=== PATIENT | female | born 1955 | race Caucasian/White ===

== ENCOUNTER 2021-04-20 22:05 | Inpatient (IN) | payer MEDICARE, OTHER ==
[~2021-04-20] VITALS: Ht 165.1 cm; Wt 111.6 kg
--- NOTE | 2021-04-20 22:21 | NUR ---
PT BIBRA FROM HOME C/O SOB X1 DAY, +DIARRHEA. STATES DAUGHTERS HAVE COVID. ON ROOM AIR PT SAT 82%. REFUSES TO BE ADMITTED. ER MD SPOKE TO PT'S FAMILY REGARDING ADMISSION, PT'S FAMILY STATED SHE DOES NOT WANT TO BE ADMITTED AND THAT THEY CAN NOT CONVINCE HER.
[2021-04-20] MEDS ORDERED: methylPREDNISolone SOD SUCC 125 MG/2ML VIAL IV ONE (23:00)
[2021-04-20] MEDS ORDERED: methylPREDNISolone SOD SUCC 125 MG/2ML VIAL ONE (23:07)
[2021-04-20 23:20] LABS: HEMOGLOBIN 12.4 g/dL (11.5-14.8); LYMPHOCYTES # (AUTO) 0.5 K/uL (0.8-4.8); MONOCYTES # (AUTO) 0.4 K/uL (0.1-1.30)
[2021-04-20 23:26] LABS: BASOPHILS % (AUTO) 0.3 % (0.0-2.0); HEMATOCRIT 37 % (33-45); LYMPHOCYTES % (AUTO) 9.5 % (20.0-44.0); MEAN CORPUSCULAR HGB CONC 34 g/dl (31.0-36.0); MEAN CORPUSCULAR VOLUME 77 fL (82-100); MONOCYTES % (AUTO) 7.4 % (2.0-12.0); NEUTROPHILS # (AUTO) 4.4 K/uL (1.8-8.9); NEUTROPHILS % (AUTO) 82.8 % (43.0-81.0); PLATELET COUNT (AUTO) 148 K/uL (150-450); RED BLOOD CELL COUNT(AUTO) 4.76 MIL/uL (4.0-5.2); WHITE BLOOD COUNT (AUTO) 5.3 K/uL (4.3-11.0)
[2021-04-20 23:31] LABS: CALCIUM, SERUM 7.7 mg/dL (8.5-10.1); CARBON DIOXIDE 18 mmol/L (21-32); CHLORIDE 97 mmol/L (98-107); CREATININE 1.1 mg/dL (0.6-1.3); GLUCOSE 152 mg/dL (74-106); POTASSIUM 3.7 mmol/L (3.5-5.1); SODIUM SERUM 130 mmol/L (136-145); UREA NITROGEN, BLOOD 13 mg/dL (7-18)
[2021-04-20 23:44] LABS: ALANINE AMINOTRANSFERASE 36 U/L (12-78); ALBUMIN 2.8 g/dL (3.4-5.0); ALKALINE PHOSPHATASE 33 U/L (46-116); ASPARTATE AMINOTRANSFERASE 36 U/L (15-37); BILIRUBIN,TOTAL 0.2 mg/dL (0.2-1.0); TOTAL PROTEIN, SERUM 7.1 g/dL (6.4-8.2)
[2021-04-20 23:54] LABS: D-DIMER 0.44 mg/L(FEU (0.17-0.50)
--- NOTE | 2021-04-21 00:03 | NUR ---
PT IN BED, REMAINS ON NON REBREATHER 15L. ST 96%.
[2021-04-21 00:22] LABS: CREATINE KINASE, TOTAL 229 U/L (26-192); FERRITIN 326 ng/mL (8-388)
[2021-04-21 00:26] LABS: C-REACTIVE PROTEIN 9.5 mg/dL (0.0-0.9)
[2021-04-21] MEDS ORDERED: PIPERACILLIN /TAZOBACTAM 3.375 G in IV D5W 50 ML IV ONE (01:00)
[2021-04-21] MEDS ORDERED: VANCOMYCIN 1 GM in IV D5W 250 ML IV ONE (01:00)
[2021-04-21] MEDS ORDERED: VANCOMYCIN 1 GM VIAL ONE (01:01)
[2021-04-21] MEDS ORDERED: PIPERACILLIN /TAZOBACTAM 3.375 G VIAL IV ONE (01:01)
--- NOTE | 2021-04-21 01:08 | NUR ---
BED 110
--- NOTE | 2021-04-21 01:15 | NUR ---
RN NOTE REPORT RECEIVED FROM SARAH BETH JAIME
[2021-04-21] MEDS ORDERED: ALBUTEROL SULFATE 8 GM HFA.AER.AD IH PRN (02:00)
[2021-04-21] MEDS ORDERED: ONDANSETRON HCL/PF 4 MG/2 ML VIAL IVP PRN (02:00)
--- NOTE | 2021-04-21 02:12 | NUR ---
RN ADMITTING NOTE RECEIVED PATIENT FROM ER VIA GURNEY ACCOMPANIED BY 2 ER STAFF AND TRANSFERRED TO BED VIA 2 PERSON ASSIST. PT IS AAO X 4, IN NO SIGN OF ACUTE DISTRESS, RESPIRATIONS EVEN AND UNLABORED, SATURATION AT 97% ON 15LPM VIA NRB MASK. COMPREHENSIVE PHYSICAL ASSESSMENT AND PATIENT CARE DONE. NO SKIN ISSUES NOTED. NOTED IV LINE AT RHAND 20G, PATENT AND FLUSHING WELL, NO S/S OF INFECTION OR INFILTRATION NOTED. SAFETY MEASURES AND ISOLATION PRECAUTION IN PLACE, CALL LIGHT WITHIN REACH OF PATIENT, BED ON LOWEST POSITION, SIDE RAILS UP X 2. WILL CONTINUE MONITOR AND ASSESS THROUGHOUT THE SHIFT. WILL CARRY OUT MD ORDERS ACCORDINGLY. WOMEN SPECIALIST MADE AWARE.
--- NOTE | 2021-04-21 02:19 | NUR ---
PT TRANSFERED PER ACLS PROTOCOL
[2021-04-21] MEDS ORDERED: CEFTRIAXONE 1 G VIAL ONE (02:21)
[2021-04-21] MEDS: CEFTRIAXONE 1 G in IV D5W 50 ML IV SCH (02:31)
[2021-04-21 02:43] VITALS: BP 147/89
[2021-04-21] MEDS ORDERED: AZITHROMYCIN 500 MG VIAL ONE (02:55)
[2021-04-21] MEDS: AZITHROMYCIN 250 MG in IV D5W 250 ML IV SCH (03:07)
[2021-04-21 04:00] VITALS: BP 119/72
--- NOTE | 2021-04-21 06:38 | NUR ---
RN CLOSING NOTES NO CHANGES IN PT CONDITION THROUGHOUT ADMISSION. PT IS ON 15L NRB MASK WITH OXYGEN SATURATION >95% WITH NO S/S OF RESPIRATORY DISTRESS. PT IS NSR, A&OX4, AND HAS IV LINE ON RIGHT HAND. FLUSHED, PATENT, AND INTACT. ALL DUE MEDS GIVEN ORDERED. PATIENT KEPT CLEAN AND COMFORTABLE. ALL SAFETY MEASURES IMPLEMENTED. WILL ENDORSE TO MORNING SHIFT RN FOR MYRNA.
[2021-04-21 08:00] VITALS: BP 110/63
--- NOTE | 2021-04-21 08:13 | NUR ---
patient asleep,no acute distress,will continue to monitor.
[2021-04-21 08:16] LABS: BASOPHILS % (AUTO) 0.1 % (0.0-2.0); HEMATOCRIT 38 % (33-45); HEMOGLOBIN 12.5 g/dL (11.5-14.8); LYMPHOCYTES # (AUTO) 0.4 K/uL (0.8-4.8); LYMPHOCYTES % (AUTO) 12.5 % (20.0-44.0); MEAN CORPUSCULAR HGB CONC 33 g/dl (31.0-36.0); MEAN CORPUSCULAR VOLUME 78 fL (82-100); MONOCYTES # (AUTO) 0.1 K/uL (0.1-1.30); MONOCYTES % (AUTO) 4.1 % (2.0-12.0); NEUTROPHILS # (AUTO) 2.8 K/uL (1.8-8.9); NEUTROPHILS % (AUTO) 83.3 % (43.0-81.0); PLATELET COUNT (AUTO) 141 K/uL (150-450); WHITE BLOOD COUNT (AUTO) 3.3 K/uL (4.3-11.0)
--- NOTE | 2021-04-21 08:21 | NUR ---
OPHTHALMIC MEDICAL TECHNOLOGIST TELEMETRY OPENING NOTES: Received patient in room in bed and patient is alert and orientated x4. Patient is currently on Non-Rebreather mask running @ 15 LPM. last O2 reading when rounded was 93%. Patient's current telemetry reading is Sinus Rhythm. Patient is currently using a bedpan and is able to turn and reposition self. Patient's skin is intact, warm and dry to touch. Patient has a Right Hand IV 20 Gauge which is currently patent. Patient is currently NPO. Patient in bed resting, bed is locked, bed in lowest position, upper side rails up and call light within easy reach. Will continue to monitor patient throughout shift.
[2021-04-21] MEDS ORDERED: LEVO50TA8 PO (08:23)
[2021-04-21] MEDS ORDERED: METO-357 PO (08:23)
[2021-04-21] MEDS ORDERED: HYDR25TA4 PO (08:23)
[2021-04-21] MEDS ORDERED: LOSA100T31 PO (08:24)
[2021-04-21] MEDS ORDERED: OMEP40CA21 PO (08:24)
[2021-04-21] MEDS ORDERED: AMLO-212 PO (08:24)
[2021-04-21] MEDS ORDERED: MELO-107 PO (08:24)
[2021-04-21] MEDS ORDERED: ASPI-1420 PO (08:24)
[2021-04-21 08:38] LABS: THYROID STIMULATING HORMONE 1.253 uIU/mL (0.358-3.74)
[2021-04-21] MEDS: ENOXAPARIN SODIUM 40 MG/0.4 ML DISP.SYRIN SQ SCH (08:57)
[2021-04-21 10:13] LABS: ALBUMIN 2.7 g/dL (3.4-5.0); BILIRUBIN,TOTAL 0.2 mg/dL (0.2-1.0); CALCIUM, SERUM 8.3 mg/dL (8.5-10.1); CREATININE 1.1 mg/dL (0.6-1.3); MAGNESIUM 2.1 mg/dL (1.8-2.4); PHOSPHORUS 3.6 mg/dL (2.5-4.9); POTASSIUM 4.4 mmol/L (3.5-5.1); TOTAL PROTEIN, SERUM 7.3 g/dL (6.4-8.2)
[2021-04-21] MEDS: DEXAMETHASONE SOD PHOSPHATE 10 MG/ML VIAL IV SCH ×2 (10:19→17:29)
[2021-04-21] MEDS ORDERED: FUROSEMIDE 20 MG/2 ML VIAL IV ONE ×2 (10:30)
[2021-04-21 12:00] VITALS: BP 110/63
[2021-04-21] MEDS: REMDESIVIR (CHARGED) 200 MG, *LOADING DOSE 1 EA in IV NS 0.9% 210 ML IV ONE ×2 (14:35→15:07)
[2021-04-21 16:00] VITALS: BP 113/66
--- NOTE | 2021-04-21 18:45 | NUR ---
FIRST BAG OF REMDESIVIR HUNG AFTER MIDLINE WAS PLACED.
--- NOTE | 2021-04-21 18:56 | NUR ---
PHARMACY GRADUATE INTERN TELEMETRY CLOSING NOTES: Patient is in room resting and is alert and orientated X4. Patient is currently on a Non- Rebreather Mask last O2 reading when rounding was 94%. Patient's current telemetry reading is Sinus Rhythm. Patient's skin remains intact, warm and dry to touch. Patient is able to transfer from bed to bedside commode with assistance. Patient has a Right Upper Midline which is patent and was inserted today. Patient has eaten all meals and taken all IV Medications administered by assigned RN. Patient in bed resting, bed is locked, bed is in lowest position, upper side rails are up and call light within easy reach. Pending labs for tomorrow 04/22/2021 BMP and Liver Function test will endorse to nightshift incoming nurse.
--- NOTE | 2021-04-21 19:20 | NUR ---
PATIENT ALERT AND ORIENTED X4, ABLE TO MAKE NEEDS KNOWN. ON 15L NRB, NO SIGNS OF RESPIRATORY DISTRESS, O2 SAT 91%. COMPLAINED OF MILD GENERALIZED PAIN, WILL ADMINISTER DUE PRN MEDS. IV ACCESS ON DANIELLE MIDLINE, PATENT AND INTACT. BED LOCKED AND IN LOWEST POSITION. CALL LIGHT WITHIN REACH. ALL NEEDS ANTICIPATED.
[2021-04-21 20:00] VITALS: BP 119/79
[2021-04-21] MEDS: ACETAMINOPHEN 650 MG/SUPP.RECT RC PRN (20:27)
--- NOTE | 2021-04-21 20:52 | NUR ---
PATIENT O2 SAT 82%, RESPIRATIONS 26. REMAINS AWAKE AND ALERT. NOTIFIED LE PEDROZA WITH NEW ORDERS FOR HIGH FLOW NASAL CANNULA, NO ABG AT THIS TIME. INFORMED RT AT BEDSIDE.
[2021-04-21] MEDS ORDERED: TOCILIZUMAB 400 MG in IV NS 0.9% 80 ML IV ONE (21:00)
--- NOTE | 2021-04-21 22:10 | NUR ---
PATIENT O2 SAT CONTINUES TO FLUCTUATE 83-87%, RT AT BEDSIDE. NRB 15LPM ADMINISTERED ALONG WITH HFNC 40L 100%FIO2. O2 SAT 90%. PATIENT ALSO REQUESTING FOR SLEEPING AID. NOTIFIED LE PEDROZA AND SAID "NO WE CANT GIVE HER ANYTHING THAT WILL SUPPRESS HER RESPIRATORY DRIVE." EXPLAINED TO PATIENT, AND VERBALIZE UNDERSTANDING. CALL LIGHT WITHIN REACH.
--- NOTE | 2021-04-21 22:13 | NUR ---
VERBALLY SPOKE TO MELINDA ARAUZ, UPDATE ON PATIENTS CONDITION, AND MD EXPECTS PATIENT TO RECEIVE NEW MEDICATION ACTEMRA IN THE MORNING. MEDICATION CURRENTLY UNAVAILABLE, DEBI CHARGE NURSE AND RIGO NURSING LANDSCAPE CREW MEMBER AWARE. ACTEMRA CLARIFIED.
--- NOTE | 2021-04-21 23:30 | NUR ---
TREATMENT COORDINATOR NOTE RT AT BED SIDE TRYING TO CHANGE THE PULSE OX CENSOR. PT O2 CAME UP TO 92%. BUT QUICKLY DROPPED BACK DOWN TO 82%. LE [place]ERTY WINDOWS APPLICATION PACKAGER INFORMED. RECIEVED NEW ORDER OF LASIX 20 MG X 1. AND MONITOR THE PT. PER LE LAST STEPS IS INTUBATION. GAURAV NURSE INFORMED TO FOLLOW UP.
[2021-04-22] VITALS (18 sets, daily range): BP systolic 91–127; BP diastolic 26–87
[2021-04-22] MEDS ORDERED: DEXAMETHASONE SOD PHOSPHATE 10 MG/ML VIAL IV ONE
[2021-04-22] MEDS ORDERED: FUROSEMIDE 20 MG/2 ML VIAL ONE (00:06)
--- NOTE | 2021-04-22 00:19 | NUR ---
IV LASIX AND DECADRON GIVEN ORDERED. PATIENT O2 SAT 90-93% ON HFNC 40L 100% FIO2 AND 15L NRB. CALL LIGHT WITHIN REACH.
[2021-04-22] MEDS: AZITHROMYCIN 250 MG in IV D5W 250 ML IV SCH (01:07)
--- NOTE | 2021-04-22 01:22 | NUR ---
ASSISTED PATIENT TO PRONE POSITION WITH 2 NURSES, PATIENT TOLERATING WELL. O2 SAT 96%. CALL LIGHT WITHIN REACH.
[2021-04-22] MEDS: CEFTRIAXONE 1 G in IV D5W 50 ML IV SCH (02:16)
[2021-04-22 07:10] LABS: ALBUMIN 2.8 g/dL (3.4-5.0); BILIRUBIN,DIRECT 0.1 mg/dL (0.0-0.2); BILIRUBIN,TOTAL 0.2 mg/dL (0.2-1.0); CALCIUM, SERUM 8.8 mg/dL (8.5-10.1); CREATININE 1.1 mg/dL (0.6-1.3); POTASSIUM 3.9 mmol/L (3.5-5.1); TOTAL PROTEIN, SERUM 7.7 g/dL (6.4-8.2)
[2021-04-22 07:17] LABS: C-REACTIVE PROTEIN 10.2 mg/dL (0.0-0.9)
--- NOTE | 2021-04-22 08:14 | NUR ---
RN NOTE PATIENT AWAKE, ALERT AND ORIENTED X4, ABLE TO VERBALIZE NEEDS, ON 02 HF @40L FIO2 OF 100% WITH NRB @15LPM, BREATHING EVEN AND UNLABORED O2 SAT OF 89% REPOSITIONED PATIENT TO PRONE POSITION O2 SAT IMPROVED TO 99%, ON TELEMONITOR SR OF 75 CONTINENT ON BOWEL AND BLADDER, SKIN INTACT, RIGHT UPPER ARM MIDLINE IV SITE PATENT, ISOLATION PRECAUTION OBSERVED, WILL CONTINUE TO MONITOR, CALL LIGHT WITHIN REACH, BED WHEELS LOC, SAFETY MEASURE OBSERVED.
--- NOTE | 2021-04-22 08:16 | NUR ---
RN NOTE SEEN BY DR. ROZINA MD ORDERED ABG TO BE DONE AND TO CONTINUE PATIENT ON PRONE POSITION TOLERATED.
[2021-04-22 08:27] LABS: ABG BASE EXCESS -1.6 mmol/L; ABG OXYGEN SATURATION 95.8 % (92.0-98.5); ABG PCO2 29.3 mmHg (35.0-45.0); ABG PH 7.471 (7.350-7.450); ABG PO2 77.5 mmHg (75.0-100.0); AaDO2 606.2 mmHg; COHb 0.4 % (0.5-1.5); MetHb 0.3 % (0.0-1.5); O2Hb 95.1 % (94.0-97.0); SITE, ABG Right Radial; VENT MODE, BG HFNC 40L/100% + NRB 15L
[2021-04-22] MEDS ORDERED: diphenhydrAMINE HCL 50 MG/ML VIAL IV ONE (08:30)
[2021-04-22] MEDS ORDERED: ACETAMINOPHEN 325 MG TABLET PO ONE (08:30)
[2021-04-22] MEDS: ASPIRIN EC 81 MG TABLET.DR PO SCH (08:47)
[2021-04-22] MEDS: DEXAMETHASONE SOD PHOSPHATE 10 MG/ML VIAL IV SCH ×2 (08:47→17:22)
[2021-04-22] MEDS: LEVOTHYROXINE SODIUM 50 MCG TABLET PO SCH (08:47)
[2021-04-22] MEDS: PANTOPRAZOLE 40 MG TABLET.DR PO SCH (08:47)
[2021-04-22] MEDS ORDERED: TOCILIZUMAB 400 MG in IV NS 0.9% 80 ML IV ONE (09:00)
[2021-04-22] MEDS ORDERED: TOCILIZUMAB 800 MG in IV NS 0.9% 60 ML IV ONE (09:00)
[2021-04-22] MEDS: ENOXAPARIN SODIUM 40 MG/0.4 ML DISP.SYRIN SQ SCH ×2 (09:08→20:18)
[2021-04-22] MEDS: LOSARTAN POTASSIUM 50 MG TABLET PO SCH (09:09)
[2021-04-22] MEDS: HYDROCHLOROTHIAZIDE 25 MG TABLET PO SCH (09:09)
[2021-04-22] MEDS: METOPROLOL SUCCINATE 50 MG TAB.SR.24H PO SCH (09:10)
[2021-04-22] MEDS: AMLODIPINE BESYLATE 5 MG TABLET PO SCH (09:10)
[2021-04-22] MEDS: MELOXICAM 7.5 MG TABLET PO SCH (09:11)
--- NOTE | 2021-04-22 09:17 | NUR ---
RN NOTE BENADRYL AND TYLENOL GIVEN 30 MIN PRIOR TO ADMINISTRATION OF ACTEMRA IV STARTED ORDERED, PATIENT VTS 123/74, HR OF 71, RESPIRATION OF 20, O2 SAT OF 92% ON PRONE POSITION, TEMP OF 98. WILL MONITOR FOR ADVERSE REACTION ORDERED..
--- NOTE | 2021-04-22 09:30 | NUR ---
RN NOTE PATIENT ON ACTEMRA NO ASE NOTED, VTS WNL, WILL CONTINUE TO MONITOR.
--- NOTE | 2021-04-22 12:18 | NUR ---
RN NOTE PATIENT TO BE TRANSFER TO ICU GAVE REPORT TO NURSE WALTON.
--- NOTE | 2021-04-22 12:45 | NUR ---
RN NOTES patient get transferred fron tele to icu after abg test result. Patient get desaturated when lying in her back 84% with HF lexy non -retreatment mask, per paraffin plant operator patient will reposition her abdomen o2- 90 tp 91%. patient a/o x3/4. with SOB. patient able to turn and reposition bed by self. patient obese, skin intact, using diaper. patient still regular diet. asking water at this time. IV access on right midline infusing ns tko @10ml/hr. call light within to reach. will monitoring.
[2021-04-22] MEDS: REMDESIVIR (CHARGED) 100 MG in IV NS 0.9% 230 ML IV SCH (15:23)
--- NOTE | 2021-04-22 15:28 | NUR ---
RN NOTES Started RAMDESIVIR INFUSION AT THIS TIME 250 ML/HR. PATIENT O2-85% TO 88 % ART THIS TIME.
--- NOTE | 2021-04-22 18:30 | NUR ---
rn notes PM CARE DONE, PATIENT ABLE TO REPOSTION SELF IN THE BED, O2- 89 %, EDUCATED PATIENT TO KEEP NON- REBREATHER MASK ON AND POSITION SELF PRONE POSITION. PATIENT VERBALIZED UNDERSTANDING, CALL LIGHT WITHIN TO REACH. ENDORSED ONCOMING NURSE FOLLOW PLAN OF CARE.
--- NOTE | 2021-04-22 19:29 | NUR ---
RN NOTE PATIENT RESTING IN BED, SELF PRONING AT THIS TIME. ON HFNC 40L 100% FIO2 AND 15L NRB, O2 SAT 86-89%. ALERT AND ORIENTED X4. ABLE TO MAKE NEEDS KNOWN. TELE MONITOR ON, SR 60'S. IV ACCESS ON DANIELLE MIDLINE, PATENT AND INTACT. DENIES ANY PAIN OR DISCOMFORT. BED LOCKED AND IN LOWEST POSITION. CALL LIGHT WITHIN REACH. ALL NEEDS ANTICIPATED.
[2021-04-23] VITALS (39 sets, daily range): BP systolic 59–125; BP diastolic 24–80
[2021-04-23] MEDS: AZITHROMYCIN 500 MG in IV D5W 250 ML IV SCH (01:12)
[2021-04-23] MEDS: CEFTRIAXONE 1 G in IV D5W 50 ML IV SCH (02:26)
--- NOTE | 2021-04-23 04:33 | NUR ---
PATIENT COMPLAINING OF WORSENING COUGH. O2 SAT 89-92% AND PATIENT IS REQUESTING FOR COUGH MEDICINE. INFORMED LE PEDROZA WITH NEW ORDERS NOTED AND CARRIED OUT.
[2021-04-23] MEDS: GUAIFENESIN/D-METHORPHAN HB 5 ML UDC PO PRN ×2 (05:20→17:05)
[2021-04-23 05:32] LABS: ALBUMIN 2.7 g/dL (3.4-5.0); BILIRUBIN,DIRECT 0.1 mg/dL (0.0-0.2); BILIRUBIN,TOTAL 0.2 mg/dL (0.2-1.0); CALCIUM, SERUM 8.6 mg/dL (8.5-10.1); POTASSIUM 3.9 mmol/L (3.5-5.1); TOTAL PROTEIN, SERUM 7.3 g/dL (6.4-8.2)
--- NOTE | 2021-04-23 06:50 | NUR ---
RN NOTE PATIENT RESTING IN BED. ALERT AND ORIENTED X4. SELF PRONING AT THIS TIME. ON HFNC 40L 100% FIO2 AND 15L NRB, O2 SAT 88-93%. IV ACCESS ON DANIELLE MIDLINE, PATENT AND INTACT. DENIES ANY PAIN OR DISCOMFORT. KEPT CLEAN AND DRY, BED LINENS CHANGED. ALL NEEDS ATTENDED PROMPTLY. BED LOCKED AND IN LOWEST POSITION. CALL LIGHT WITHIN REACH. WILL ENDORSE TO AM SHIFT.
--- NOTE | 2021-04-23 07:30 | NUR ---
COFFERDAM CONSTRUCTION SUPERVISOR OPENING NOTES; PT RECEIVED IN BED, IN PRONE POSITION. PT HAS NO C/O PAIN. PT A/OX4. PT ON NON REBREATHER AT 15LPM ALONG WITH HIGH FLOW NASAL CANULA @40LPM, 100% WITH 02 SAT OF 94-96%. R UPPER ARM MIDLINE NOTED, FLUSHED AND PATENT RUNNING TKO. BED IS IN LOWEST AND LOCK POSITION. CALL LIGHT WITHIN REACH, WILL CONTINUE TO MONITOR.
[2021-04-23] MEDS: ASPIRIN EC 81 MG TABLET.DR PO SCH (08:08)
[2021-04-23] MEDS: PANTOPRAZOLE 40 MG TABLET.DR PO SCH (08:08)
[2021-04-23] MEDS: MELOXICAM 7.5 MG TABLET PO SCH (08:08)
[2021-04-23] MEDS: LOSARTAN POTASSIUM 50 MG TABLET PO SCH (08:09)
[2021-04-23] MEDS: DEXAMETHASONE SOD PHOSPHATE 10 MG/ML VIAL IV SCH ×2 (08:09→17:06)
[2021-04-23] MEDS: LEVOTHYROXINE SODIUM 50 MCG TABLET PO SCH (08:09)
[2021-04-23] MEDS: AMLODIPINE BESYLATE 5 MG TABLET PO SCH (08:09)
[2021-04-23] MEDS: HYDROCHLOROTHIAZIDE 25 MG TABLET PO SCH (08:10)
[2021-04-23] MEDS: METOPROLOL SUCCINATE 50 MG TAB.SR.24H PO SCH (08:10)
[2021-04-23] MEDS: ENOXAPARIN SODIUM 40 MG/0.4 ML DISP.SYRIN SQ SCH ×2 (08:29→21:37)
[2021-04-23] MEDS: REMDESIVIR (CHARGED) 100 MG in IV NS 0.9% 230 ML IV SCH (14:54)
--- NOTE | 2021-04-23 17:42 | NUR ---
RT PATIENT REMAINS AWAKE, ALERT, WITH NO COMPLAINTS OF SOB. PATIENT REQUIRING HFNC 4OL 100% + NRB MASK TO MAINTAIN SPO2 ABOVE 90%. WATER CHANGED AND HF PLUGGED INTO RED OUTLET. PATIENT SELF PRONES. TITRATE FIO2 WHEN APPROPRIATE. Addendum: 04/23/21 at 1745 by CHIDI DENISE RT Amended: Links added.
--- NOTE | 2021-04-23 18:54 | NUR ---
CURING ROOM SUPERVISOR CLOSING NOTES; PT IN BED, CLEAN, DRY, IN PRONE POSITION. PT HAS NO C/O PAIN. PT A/OX4. PT ON NON REBREATHER AT 15LPM ALONG WITH HIGH FLOW NASAL CANULA @40LPM, 100% WITH 02 SAT OF 94%. R UPPER ARM MIDLINE NOTED, FLUSHED AND PATENT RUNNING TKO. 3RD DOSE TO REMDESIVIR GIVEN AND TOLERATED WELL. CXR DONE,IMPOVED RIGHT AND STABLE LUNG INFILTRATES. PT HAD BM X4. PT ON REGULAR DIET AND WAS ABLE TO TOLERATE HER MEALS. CALL LIGHT WITHIN REACH, WILL CONTINUE TO MONITOR. PT BEDLOCKED AND IN LOWEST POSITION. ENDORSED TO NEXT RN ON SHIFT.
--- NOTE | 2021-04-23 19:30 | NUR ---
RN NOTE RECEIVED PATIENT ON ISOLATION FOR COVID 1. PATIENT IN BED. A/OX4. ON OXYGEN HIGH FLOW 40L/MIN NC 100% FIO2 AND 15L NONREBREATHER MASK. RESPIRATIONS ARE EVEN AND UNLABORED. NO S/S SOB NOTED. PATIENT O2 SAT 96%. NO C/O PAIN AT THIS TIME. IN NO APPARENT DISTRESS. IV ACCESS IN DANIELLE MIDLINE RUNNING TKO. TELE MONITOR READS SINUS MADELAINE/ SINUS RHYTHM WITH BBB. IN NO APPARENT DISTRESS. BED IS LOW AND LOCKED, HOB FLAT, PATIENT DOES SELF PRONING. CALL LIGHT WITHIN REACH. WILL CONTINUE TO MONITOR THROUGHOUT SHIFT.
[2021-04-24] VITALS (26 sets, daily range): BP systolic 93–129; BP diastolic 40–87
[2021-04-24] MEDS: CEFTRIAXONE 1 G in IV D5W 50 ML IV SCH (02:03)
[2021-04-24] MEDS: AZITHROMYCIN 500 MG in IV D5W 250 ML IV SCH (02:38)
[2021-04-24 04:42] LABS: BASOPHILS % (AUTO) 0.1 % (0.0-2.0); HEMATOCRIT 39 % (33-45); HEMOGLOBIN 13.1 g/dL (11.5-14.8); LYMPHOCYTES # (AUTO) 0.6 K/uL (0.8-4.8); LYMPHOCYTES % (AUTO) 11.6 % (20.0-44.0); MEAN CORPUSCULAR HGB CONC 34 g/dl (31.0-36.0); MEAN CORPUSCULAR VOLUME 77 fL (82-100); MONOCYTES # (AUTO) 0.7 K/uL (0.1-1.30); MONOCYTES % (AUTO) 13.5 % (2.0-12.0); NEUTROPHILS # (AUTO) 3.8 K/uL (1.8-8.9); NEUTROPHILS % (AUTO) 74.8 % (43.0-81.0); PLATELET COUNT (AUTO) 222 K/uL (150-450); RED BLOOD CELL COUNT(AUTO) 5.06 MIL/uL (4.0-5.2); WHITE BLOOD COUNT (AUTO) 5.1 K/uL (4.3-11.0)
[2021-04-24 05:12] LABS: ALBUMIN 2.8 g/dL (3.4-5.0); BILIRUBIN,DIRECT 0.1 mg/dL (0.0-0.2); BILIRUBIN,TOTAL 0.3 mg/dL (0.2-1.0); CALCIUM, SERUM 8.5 mg/dL (8.5-10.1); TOTAL PROTEIN, SERUM 7.1 g/dL (6.4-8.2)
--- NOTE | 2021-04-24 06:08 | NUR ---
RT NOTE PT CURRENTLY ON HFNC 100% + NRB. PT IS STABLE. WILL CONT TO MONITOR. Addendum: 04/24/21 at 0609 by YUE REEVES RT Amended: Links added.
--- NOTE | 2021-04-24 06:53 | NUR ---
RN NOTE REMAINS ON ISOLATION FOR COVID 19. RESTING IN BED. A/OX4. WAS NOT ABLE TO TITRATE O2 SPO2 RANGED FROM 88 - 97% THROUGHOUT NIGHT. REMAINS ON OXYGEN HIGH FLOW 40L/MIN NC 100% FIO2 AND 15L NONREBREATHER MASK. NO PAIN. NO DISTRESS. IV IN DANIELLE MIDLINE RUNNING TKO. TELE MONITOR CONTINUES TO READS SINUS MADELAINE/ SINUS RHYTHM WITH BBB. NO DISTRESS. BED REMAINS LOW AND LOCKED, HOB FLAT, PATIENT IS PRONING. CALL LIGHT WITHIN REACH. WILL ENDORSE TO ONCOMING SHIFT. DAUGHTER ALSO EXPRESSED SHE WISHES TO SPEAK WITH MD, PREFERABLY PULMONARY MD, DR. ESCOBAR, WILL INFORM AM SHIFT.
--- NOTE | 2021-04-24 07:00 | NUR ---
AIRPLANE RENTAL CLERK OPENING NOTES RECEIVED PATIENT RESTING IN BED. A/O X4, PT IN PRONE POSITION RESTING COMFORTABLY. 0 C/0 PAIN, 0 DISTRESS NOTED. ON HFNC 40L 100% FIO2 AND 15L NRB, O2 SAT 85-90%. IV ACCESS ON DANIELLE MIDLINE, PATENT AND INTACT. PT CLEAN, DRY AND COMFORTABLE. BED LOCKED AND IN LOWEST POSITION. CALL LIGHT WITHIN REACH. WILL CONTINUE TO MONITOR.
--- NOTE | 2021-04-24 07:45 | NUR ---
PRODUCT MANAGEMENT INTERN OPENING NOTES Patient is alert and oriented. Breathing even and unlabored. On 2 lpm via n/c with 02 saturation of 98%. No c/o pain or discomfort. Patient provided morning care. HOB kimanthonyleonardo elevated. Wound consult being done while endorsement was being given. Call light with in reach. Will continue to monitor. Addendum: 04/24/21 at 0959 by HENRIETTA PARKER RN wrong patient
--- NOTE | 2021-04-24 08:00 | NUR ---
Patient SBP 103 AND HR OF 113. Informed MD Robles if patient to be given diltiazem . Per md to recheck manually. Manually BP checked and noted with BP of 118/78. Medication given. Addendum: 04/24/21 at 1001 by HENRIETTA PARKER RN wrong patient chart
--- NOTE | 2021-04-24 08:45 | NUR ---
Patient transferred to [address] [place] [address] AT 8:35, report given to julianna JAIME. Patient transferred on tele monitor and portable 02. Vitals WNL. Addendum: 04/24/21 at 1001 by HENRIETTA PARKER RN wrong patient chart
[2021-04-24] MEDS: METOPROLOL SUCCINATE 50 MG TAB.SR.24H PO SCH (09:04)
[2021-04-24] MEDS: LOSARTAN POTASSIUM 50 MG TABLET PO SCH (09:05)
[2021-04-24] MEDS: PANTOPRAZOLE 40 MG TABLET.DR PO SCH (09:05)
[2021-04-24] MEDS: LEVOTHYROXINE SODIUM 50 MCG TABLET PO SCH (09:05)
[2021-04-24] MEDS: HYDROCHLOROTHIAZIDE 25 MG TABLET PO SCH (09:05)
[2021-04-24] MEDS: MELOXICAM 7.5 MG TABLET PO SCH (09:05)
[2021-04-24] MEDS: AMLODIPINE BESYLATE 5 MG TABLET PO SCH (09:06)
[2021-04-24] MEDS: DEXAMETHASONE SOD PHOSPHATE 10 MG/ML VIAL IV SCH ×2 (09:06→17:07)
[2021-04-24] MEDS: ENOXAPARIN SODIUM 40 MG/0.4 ML DISP.SYRIN SQ SCH ×2 (09:08→21:05)
[2021-04-24] MEDS: ASPIRIN EC 81 MG TABLET.DR PO SCH (09:09)
[2021-04-24 09:13] LABS: ABG BASE EXCESS -1.7 mmol/L; ABG OXYGEN SATURATION 89.9 % (92.0-98.5); ABG PCO2 29.6 mmHg (35.0-45.0); ABG PH 7.465 (7.350-7.450); ABG PO2 56.8 mmHg (75.0-100.0); AaDO2 626.6 mmHg; COHb 0.5 % (0.5-1.5); MetHb 0.1 % (0.0-1.5); O2Hb 89.4 % (94.0-97.0); SITE, ABG Right Radial; VENT MODE, BG HHF 40L 100%
[2021-04-24] MEDS: REMDESIVIR (CHARGED) 100 MG in IV NS 0.9% 230 ML IV SCH (15:48)
[2021-04-24] MEDS: GUAIFENESIN/D-METHORPHAN HB 5 ML UDC PO PRN (18:22)
--- NOTE | 2021-04-24 18:48 | NUR ---
Called Dr Tran regarding patient's family requesting melatonin for sleep . Per MD the drug is not in the formulary and family is permitted to provide the drug to staff. Per pharmacy drug is not in the system. Will await family to bring the drug and endorsement will be done to next shift.
--- NOTE | 2021-04-24 18:53 | NUR ---
RIVER DRIVER CLOSING NOTES PATIENT RESTING IN BED IN PRONE POSITION. A/O X4. PT ABLE TO VERBALIZE NEEDS. NO C/0 PAIN, NO DISTRESS NOTED. ON HFNC 40L 100% FIO2 AND 15L NRB, O2 SAT 88-90%. IV ACCESS ON DANIELLE MIDLINE, PATENT AND INTACT. GIVEN 4TH BAG OF REMDESIVIR. PT WAS ABLE TO TOLERATE MEALS. PT HAD 2 LBM IN BRIEF. PT CLEAN, DRY AND COMFORTABLE. BED LOCKED AND IN LOWEST POSITION. CALL LIGHT WITHIN REACH. WILL ENDORSE TO DISTRIBUTION FIELD ENGINEER RN.
--- NOTE | 2021-04-24 20:22 | NUR ---
Received patient awake on HFNC 40L, 100% + NRB. O2 sat 90%. Continue to monitor closely. Addendum: 04/24/21 at 2024 by WICHO JACKSON RT Amended: Links added.
--- NOTE | 2021-04-24 20:30 | NUR ---
ICU/CIGAR PACKER FAMILY BROUGHT UP MELANOTONIN FOR SLEEP. THIS WAS GIVEN TO PHARMACY SO THAT PT COULD TAKE THIS FOR SLEEP.
[2021-04-24] MEDS: MELATONIN 5 MG PO SCH (21:06)
--- NOTE | 2021-04-24 21:30 | NUR ---
ICU/EDGE BASTER THE MELANOTONIN GIVEN PER PT'S REQUEST. PT ALSO PROVIDED MARCELO CARE. CALL LIGHT WITHIN REACH.
[2021-04-25] VITALS (25 sets, daily range): BP systolic 92–132; BP diastolic 21–89
[2021-04-25] MEDS: CEFTRIAXONE 1 G in IV D5W 50 ML IV SCH (01:50)
[2021-04-25] MEDS: AZITHROMYCIN 500 MG in IV D5W 250 ML IV SCH ×2 (02:24→02:27)
[2021-04-25] MEDS: GUAIFENESIN/D-METHORPHAN HB 5 ML UDC PO PRN (04:07)
[2021-04-25 04:40] LABS: BASOPHILS % (AUTO) 0.2 % (0.0-2.0); EOSINOPHILS % (AUTO) 0.1 % (0.0-6.0); HEMATOCRIT 40 % (33-45); HEMOGLOBIN 13.6 g/dL (11.5-14.8); LYMPHOCYTES # (AUTO) 0.7 K/uL (0.8-4.8); LYMPHOCYTES % (AUTO) 8.9 % (20.0-44.0); MEAN CORPUSCULAR HGB CONC 34 g/dl (31.0-36.0); MEAN CORPUSCULAR VOLUME 77 fL (82-100); MONOCYTES # (AUTO) 0.7 K/uL (0.1-1.30); NEUTROPHILS % (AUTO) 80.8 % (43.0-81.0); PLATELET COUNT (AUTO) 269 K/uL (150-450); RED BLOOD CELL COUNT(AUTO) 5.19 MIL/uL (4.0-5.2); WHITE BLOOD COUNT (AUTO) 7.4 K/uL (4.3-11.0)
[2021-04-25 04:56] LABS: ALBUMIN 2.8 g/dL (3.4-5.0); BILIRUBIN,DIRECT 0.1 mg/dL (0.0-0.2); BILIRUBIN,TOTAL 0.3 mg/dL (0.2-1.0); CALCIUM, SERUM 8.3 mg/dL (8.5-10.1); POTASSIUM 3.9 mmol/L (3.5-5.1); TOTAL PROTEIN, SERUM 6.9 g/dL (6.4-8.2)
--- NOTE | 2021-04-25 05:00 | NUR ---
ICU/MEDICAL DELIVERY DRIVER PT GIVEN ROBITUSSIN FOR COUGH, WILL MONITOR THIS PT.
[2021-04-25] MEDS: PANTOPRAZOLE 40 MG TABLET.DR PO SCH ×2 (05:10→08:41)
[2021-04-25] MEDS: LEVOTHYROXINE SODIUM 50 MCG TABLET PO SCH ×2 (05:10→08:41)
--- NOTE | 2021-04-25 07:00 | NUR ---
RN NOTES RECEIVED PT ON BED A/O x4, ON HIGH FLOW O2 AND NONREBREATHER MASK , O2 SAT 92-93%, ON TELE SB HR IN 50'S, WITH BBB, R UPPER ARM MIDLINE SITE CLEAN, DRY AND INTACT, SR UP x3, CALL LIGHT WITHIN EASY REACH , BED LOCKED AND IN LOWEST POSITION, CONTINUE TO MONITOR.
[2021-04-25] MEDS: HYDROCHLOROTHIAZIDE 25 MG TABLET PO SCH (08:40)
[2021-04-25] MEDS: LOSARTAN POTASSIUM 50 MG TABLET PO SCH (08:41)
[2021-04-25] MEDS: ASPIRIN EC 81 MG TABLET.DR PO SCH (08:41)
[2021-04-25] MEDS: MELOXICAM 7.5 MG TABLET PO SCH (08:42)
[2021-04-25] MEDS: DEXAMETHASONE SOD PHOSPHATE 10 MG/ML VIAL IV SCH ×2 (08:42→16:25)
[2021-04-25] MEDS: ENOXAPARIN SODIUM 40 MG/0.4 ML DISP.SYRIN SQ SCH ×2 (08:43→21:11)
[2021-04-25] MEDS: METOPROLOL SUCCINATE 50 MG TAB.SR.24H PO SCH (09:00)
[2021-04-25] MEDS: AMLODIPINE BESYLATE 5 MG TABLET PO SCH (09:00)
[2021-04-25 10:32] LABS: ABG OXYGEN SATURATION 93.4 % (92.0-98.5); ABG PCO2 31.3 mmHg (35.0-45.0); ABG PH 7.475 (7.350-7.450); ABG PO2 64.5 mmHg (75.0-100.0); AaDO2 617.2 mmHg; COHb 0.5 % (0.5-1.5); MetHb 0.2 % (0.0-1.5); O2Hb 92.7 % (94.0-97.0); SITE, ABG Right Radial
--- NOTE | 2021-04-25 13:00 | NUR ---
RN NOTES PT RESTLESS AT TIMES , TAKING NONREBREATHER MASK OFF , ADVISED PT HOW IMPORTANT IS TO KEEP THE O2 ON AT ALL TIMES, REINFORCED TEACHING , CONTINUE TO MONITOR.
[2021-04-25 13:53] LABS: C-REACTIVE PROTEIN 1.7 mg/dL (0.0-0.9)
[2021-04-25] MEDS: REMDESIVIR (CHARGED) 100 MG in IV NS 0.9% 230 ML IV SCH (14:56)
--- NOTE | 2021-04-25 18:00 | NUR ---
RN NOTES PT REMAINS ON HIGH FLOW AT 100%, 40 L AND NONREBREATHING MASK AT 15 L, O2 SAT IN 93-94%, C/O OF SOB AT THIS, SR UP x3, CALL LIGHT WITHIN EASY REACH, BED LOCKED AND IN LOWEST POSITION, WILL ENDORSE TO DATA PROCESSING MANAGER NURSE FOR CONTINUITY OF CARE .
--- NOTE | 2021-04-25 19:30 | NUR ---
RN NOTES Received patient in bed AOX4. Patient continues on High flow o2 and nonrebreather mask, saturating 95%. Tele monitor shows SR in 70's. Right upper arm midline intact flushed well. skin warm dry and intact. Kept clean dry and comfortable. All safety measures in place, call light within reach. Will cont to monitor for martha.
--- NOTE | 2021-04-25 19:54 | NUR ---
Received patient awake on HFNC 40L, 100% + NRB. O2 sat 94%. Continue to monitor closely. Addendum: 04/25/21 at 1953 by EMILIANA KENYN RT Amended: Links added.
[2021-04-25] MEDS: MELATONIN 5 MG PO SCH (21:27)
[2021-04-26] VITALS (25 sets, daily range): BP systolic 85–118; BP diastolic 42–83
[2021-04-26] MEDS: CEFTRIAXONE 1 G in IV D5W 50 ML IV SCH (02:00)
[2021-04-26 04:25] LABS: BASOPHILS % (AUTO) 0.3 % (0.0-2.0); EOSINOPHILS % (AUTO) 0.2 % (0.0-6.0); HEMATOCRIT 44 % (33-45); HEMOGLOBIN 14.9 g/dL (11.5-14.8); LYMPHOCYTES % (AUTO) 5.6 % (20.0-44.0); MEAN CORPUSCULAR HGB CONC 34 g/dl (31.0-36.0); MEAN CORPUSCULAR VOLUME 76 fL (82-100); MONOCYTES % (AUTO) 5.8 % (2.0-12.0); NEUTROPHILS % (AUTO) 88.1 % (43.0-81.0); PLATELET COUNT (AUTO) 345 K/uL (150-450); RED BLOOD CELL COUNT(AUTO) 5.74 MIL/uL (4.0-5.2); WHITE BLOOD COUNT (AUTO) 13.1 K/uL (4.3-11.0)
[2021-04-26 04:26] LABS: LYMPHOCYTES # (AUTO) 0.7 K/uL (0.8-4.8); MONOCYTES # (AUTO) 0.8 K/uL (0.1-1.30); NEUTROPHILS # (AUTO) 11.5 K/uL (1.8-8.9)
[2021-04-26 04:48] LABS: CALCIUM, SERUM 8.6 mg/dL (8.5-10.1); CREATININE 0.9 mg/dL (0.6-1.3); POTASSIUM 3.9 mmol/L (3.5-5.1)
--- NOTE | 2021-04-26 06:55 | NUR ---
RN NOTES Patient remains on HFNC saturating 91%. Breathing normal no SOB noted. No s/s of acute distress noted. DANIELLE midline intact flushed well. Kept clean dry and comfortable. All safety measures in place, Call light within reach. Will endorse to AM nurse for martha.
--- NOTE | 2021-04-26 07:05 | NUR ---
RN NOTES RECEIVED PT ON BED A/O x4, ON HIGH FLOW O2 AND NONREBREATHER MASK , O2 SAT 92-93%, ON TELE SR HR IN 70'S, WITH BBB, R UPPER ARM MIDLINE SITE CLEAN, DRY AND INTACT, SR UP x3, CALL LIGHT WITHIN EASY REACH , BED LOCKED AND IN LOWEST POSITION, CONTINUE TO MONITOR.
[2021-04-26] MEDS: DEXAMETHASONE SOD PHOSPHATE 10 MG/ML VIAL IV SCH ×2 (08:23→16:19)
[2021-04-26] MEDS: ENOXAPARIN SODIUM 40 MG/0.4 ML DISP.SYRIN SQ SCH ×2 (08:24→21:30)
[2021-04-26] MEDS: ASPIRIN EC 81 MG TABLET.DR PO SCH (08:25)
[2021-04-26] MEDS: MELOXICAM 7.5 MG TABLET PO SCH (08:25)
[2021-04-26] MEDS: HYDROCHLOROTHIAZIDE 25 MG TABLET PO SCH (08:30)
[2021-04-26] MEDS: LOSARTAN POTASSIUM 50 MG TABLET PO SCH (08:30)
[2021-04-26] MEDS: AMLODIPINE BESYLATE 5 MG TABLET PO SCH (08:30)
[2021-04-26] MEDS: METOPROLOL SUCCINATE 50 MG TAB.SR.24H PO SCH (08:31)
--- NOTE | 2021-04-26 18:43 | NUR ---
RN NOTES PT REMAINS ON HIGH FLOW AT 100%, 40 L AND NONREBREATHING MASK AT 15 L, O2 SAT IN 93-94%, SOB NOTED ON EXERTION ,SR UP x3, CALL LIGHT WITHIN EASY REACH, BED LOCKED AND IN LOWEST POSITION, WILL ENDORSE TO BURRER HAND NURSE FOR CONTINUITY OF CARE .
--- NOTE | 2021-04-26 20:00 | NUR ---
Pt remains on double oxygen HFNC + NRB. Pt is awake O2 sat 91%. Pt is able to prone herself. Continue to monitor closely. Addendum: 04/26/21 at 2002 by WICHO JACKSON RT Amended: Links added.
[2021-04-26] MEDS: MELATONIN 5 MG PO SCH (21:29)
[2021-04-27] VITALS (26 sets, daily range): BP systolic 85–116; BP diastolic 48–88
[2021-04-27 04:57] LABS: BASOPHILS % (AUTO) 0.1 % (0.0-2.0); EOSINOPHILS % (AUTO) 0.9 % (0.0-6.0); HEMATOCRIT 45 % (33-45); LYMPHOCYTES # (AUTO) 0.7 K/uL (0.8-4.8); LYMPHOCYTES % (AUTO) 5.3 % (20.0-44.0); MEAN CORPUSCULAR HGB CONC 34 g/dl (31.0-36.0); MEAN CORPUSCULAR VOLUME 77 fL (82-100); MONOCYTES # (AUTO) 0.7 K/uL (0.1-1.30); MONOCYTES % (AUTO) 5.5 % (2.0-12.0); NEUTROPHILS # (AUTO) 11.3 K/uL (1.8-8.9); NEUTROPHILS % (AUTO) 88.2 % (43.0-81.0); PLATELET COUNT (AUTO) 340 K/uL (150-450); RED BLOOD CELL COUNT(AUTO) 5.81 MIL/uL (4.0-5.2); WHITE BLOOD COUNT (AUTO) 12.8 K/uL (4.3-11.0)
[2021-04-27 05:05] LABS: CALCIUM, SERUM 8.8 mg/dL (8.5-10.1); CREATININE 0.9 mg/dL (0.6-1.3); POTASSIUM 3.8 mmol/L (3.5-5.1)
[2021-04-27] MEDS: LEVOTHYROXINE SODIUM 50 MCG TABLET PO SCH (07:59)
[2021-04-27] MEDS: PANTOPRAZOLE 40 MG TABLET.DR PO SCH (07:59)
--- NOTE | 2021-04-27 08:00 | NUR ---
RN Note: Pt received alert awake oriented X 4. On O2 therapy non-rebreather mask at 15 L & High flow as well, tolerating well. Encourage for prone position as tolerated. Safety measures observed. Aspiration precautions. Continue on Contact/droplet isolation for COVID-19 infection. Call light within reach. Continue to monitor.
[2021-04-27] MEDS: DEXAMETHASONE SOD PHOSPHATE 10 MG/ML VIAL IV SCH ×2 (08:01→16:12)
[2021-04-27] MEDS: ASPIRIN EC 81 MG TABLET.DR PO SCH (08:01)
[2021-04-27] MEDS: MELOXICAM 7.5 MG TABLET PO SCH (08:01)
[2021-04-27] MEDS: ENOXAPARIN SODIUM 40 MG/0.4 ML DISP.SYRIN SQ SCH ×2 (08:03→21:44)
[2021-04-27] MEDS: AMLODIPINE BESYLATE 5 MG TABLET PO SCH (09:00)
[2021-04-27] MEDS: METOPROLOL SUCCINATE 50 MG TAB.SR.24H PO SCH (09:00)
[2021-04-27] MEDS: HYDROCHLOROTHIAZIDE 25 MG TABLET PO SCH (09:00)
[2021-04-27] MEDS: LOSARTAN POTASSIUM 50 MG TABLET PO SCH (09:00)
[2021-04-27] MEDS: IV NS 0.9% 1,000 ML IV PRN ×2 (10:22→22:52)
--- NOTE | 2021-04-27 11:17 | NUR ---
RN Note: Dr. Tran paged due to daughter Asia called & request to talk to provider ANGIE, verbalized never talk to any provider regarding plan of care since admission. Daughter was very upset. After [address] Tran called back & informed above jeff's request. Per MD will call daughter.
[2021-04-27] MEDS: GUAIFENESIN/D-METHORPHAN HB 5 ML UDC PO PRN (11:26)
--- NOTE | 2021-04-27 18:59 | NUR ---
RN Note: No significant changes noted during shift. PM care given. Pt was able to sit on chair for 20minutes, tolerated well. Encourage pt to use call light for assistance. Will endorse to PM shift for continuity of care.
[2021-04-27] MEDS: MELATONIN 5 MG PO SCH (21:44)
[2021-04-28] VITALS (36 sets, daily range): BP systolic 64–120; BP diastolic 39–80
--- NOTE | 2021-04-28 00:58 | NUR ---
patient awake alert has high flow on 40 % sat 88% on monitor sinus has upper right midline ns infusing at 75 hr. temp 97.8 patient incontinent in diaper. patient is obese.no distress noted.
[2021-04-28 05:36] LABS: CALCIUM, SERUM 8.1 mg/dL (8.5-10.1); CREATININE 0.8 mg/dL (0.6-1.3); POTASSIUM 4.1 mmol/L (3.5-5.1)
[2021-04-28 05:47] LABS: BASOPHILS % (AUTO) 0.1 % (0.0-2.0); HEMATOCRIT 41 % (33-45); HEMOGLOBIN 13.6 g/dL (11.5-14.8); LYMPHOCYTES # (AUTO) 0.6 K/uL (0.8-4.8); LYMPHOCYTES % (AUTO) 5.4 % (20.0-44.0); MEAN CORPUSCULAR HGB CONC 33 g/dl (31.0-36.0); MEAN CORPUSCULAR VOLUME 78 fL (82-100); MONOCYTES # (AUTO) 0.6 K/uL (0.1-1.30); MONOCYTES % (AUTO) 5.6 % (2.0-12.0); NEUTROPHILS # (AUTO) 9.8 K/uL (1.8-8.9); NEUTROPHILS % (AUTO) 87.9 % (43.0-81.0); PLATELET COUNT (AUTO) 317 K/uL (150-450); RED BLOOD CELL COUNT(AUTO) 5.28 MIL/uL (4.0-5.2); WHITE BLOOD COUNT (AUTO) 11.2 K/uL (4.3-11.0)
--- NOTE | 2021-04-28 08:00 | NUR ---
RN NOTES RECEIVED PATIENT IN THE BED LYING IN HER ABDOMEN HELP OF INCREASE BODY OXYGENATION, PER MD'S ORDER. PATIENT FIO2-40%, AND TOBY OF NON -REBREATHER 15L -88%. PATIENT REFUSED BREAKFAST, FEEL ANXIOUS, AND WANTED TO GO HOME. SEEN HOSPITALIST Dr RICO AND EXPLAINED HER CONDITION. INFUSING NS AT 75 ML/HR ON RIGHT UA MIDLINE INTACT. CALL LIGHT WITHIN TO REACH. PATIENT USING DIAPER. ABLE TO REPOSTION SELF IN THE BED. WILL MONITORING.
[2021-04-28] MEDS: PANTOPRAZOLE 40 MG TABLET.DR PO SCH (08:11)
[2021-04-28] MEDS: LEVOTHYROXINE SODIUM 50 MCG TABLET PO SCH (08:11)
[2021-04-28] MEDS: LOSARTAN POTASSIUM 50 MG TABLET PO SCH (08:30)
[2021-04-28] MEDS: DEXAMETHASONE SOD PHOSPHATE 10 MG/ML VIAL IV SCH ×2 (08:30→17:42)
[2021-04-28] MEDS: ASPIRIN EC 81 MG TABLET.DR PO SCH (08:30)
[2021-04-28] MEDS: MELOXICAM 7.5 MG TABLET PO SCH (08:31)
[2021-04-28] MEDS: HYDROCHLOROTHIAZIDE 25 MG TABLET PO SCH (08:36)
[2021-04-28] MEDS: ENOXAPARIN SODIUM 40 MG/0.4 ML DISP.SYRIN SQ SCH ×2 (08:36→21:59)
[2021-04-28] MEDS: AMLODIPINE BESYLATE 5 MG TABLET PO SCH (08:37)
[2021-04-28] MEDS: METOPROLOL SUCCINATE 50 MG TAB.SR.24H PO SCH (08:37)
[2021-04-28] MEDS: IV NS 0.9% 1,000 ML IV PRN (12:22)
--- NOTE | 2021-04-28 12:38 | NUR ---
RN NOTES PATIENT TOLERATED LUNCH 25%, REFUSED PAIN, SEEN ALLERGY SPECIALIST, AND GIVE A CALL DAUGHTER WITH PATIENT CONDITION.
--- NOTE | 2021-04-28 18:30 | NUR ---
rn notes patient pm care done , due medication administered, o2-shows 88% to 90% at this time on bedside monitor. Patient lying in the prone position. noted will eat dinner late, has bm x1, redness perineal area. applied z-guard. call light within to reach refused pain at this time. infusing ns at 75 ml/hr on right midline intact. endorsed oncoming nurse follow plan of care.
--- NOTE | 2021-04-28 20:04 | NUR ---
Received patient awake on HFNC 40L, 100% + NRB. O2 sat 90%. Continue to monitor closely. Addendum: 04/28/21 at 2004 by EMILIANA KENNY RT Amended: Links added.
[2021-04-28] MEDS: MELATONIN 5 MG PO SCH (22:00)
--- NOTE | 2021-04-28 23:10 | NUR ---
patient awake on high vvit361% +face mask15 liters sat 88% was told to sleep on stomach. lung with crackles has cough productive patient received hs care. diaper on linen change. given melatonin 5 mg for sleep. daughter called rosita wants to know pcr results.
[2021-04-29] VITALS (47 sets, daily range): BP systolic 84–147; BP diastolic 37–94
[2021-04-29] MEDS: IV NS 0.9% 1,000 ML IV PRN ×2 (02:22→22:01)
[2021-04-29 04:45] LABS: BASOPHILS % (AUTO) 0.3 % (0.0-2.0); EOSINOPHILS % (AUTO) 0.4 % (0.0-6.0); HEMATOCRIT 41 % (33-45); HEMOGLOBIN 13.6 g/dL (11.5-14.8); LYMPHOCYTES # (AUTO) 0.4 K/uL (0.8-4.8); LYMPHOCYTES % (AUTO) 3.7 % (20.0-44.0); MEAN CORPUSCULAR HGB CONC 33 g/dl (31.0-36.0); MEAN CORPUSCULAR VOLUME 77 fL (82-100); MONOCYTES # (AUTO) 0.5 K/uL (0.1-1.30); NEUTROPHILS # (AUTO) 10.8 K/uL (1.8-8.9); NEUTROPHILS % (AUTO) 91.6 % (43.0-81.0); PLATELET COUNT (AUTO) 322 K/uL (150-450); RED BLOOD CELL COUNT(AUTO) 5.27 MIL/uL (4.0-5.2); WHITE BLOOD COUNT (AUTO) 11.9 K/uL (4.3-11.0)
[2021-04-29 04:50] LABS: CREATININE 0.8 mg/dL (0.6-1.3); POTASSIUM 4.3 mmol/L (3.5-5.1)
[2021-04-29] MEDS: GUAIFENESIN/D-METHORPHAN HB 5 ML UDC PO PRN ×2 (04:57→18:01)
--- NOTE | 2021-04-29 08:00 | NUR ---
rn notes received patient resting in the bed prone position o2-90% at this time with HF40%, and NBM-15l on [place] of. patient has infiltrated right midline, get new order midline insertion, elevated right arm, and applied hot applicant. held bp medication bp 97/49. patient a/o x3, refused pain, able to reposition self in the bed. call light within to reach. will monitoring.
[2021-04-29] MEDS: PANTOPRAZOLE 40 MG TABLET.DR PO SCH (08:11)
[2021-04-29] MEDS: MELOXICAM 7.5 MG TABLET PO SCH (08:11)
[2021-04-29] MEDS: ASPIRIN EC 81 MG TABLET.DR PO SCH (08:11)
[2021-04-29] MEDS: LEVOTHYROXINE SODIUM 50 MCG TABLET PO SCH (08:11)
[2021-04-29] MEDS: DEXAMETHASONE SOD PHOSPHATE 10 MG/ML VIAL IV SCH ×2 (08:12→18:01)
[2021-04-29] MEDS: ENOXAPARIN SODIUM 40 MG/0.4 ML DISP.SYRIN SQ SCH ×2 (08:19→21:05)
[2021-04-29] MEDS: METOPROLOL SUCCINATE 50 MG TAB.SR.24H PO SCH (08:23)
[2021-04-29] MEDS: LOSARTAN POTASSIUM 50 MG TABLET PO SCH (08:24)
[2021-04-29] MEDS: HYDROCHLOROTHIAZIDE 25 MG TABLET PO SCH (08:24)
[2021-04-29] MEDS: AMLODIPINE BESYLATE 5 MG TABLET PO SCH (08:26)
--- NOTE | 2021-04-29 13:00 | NUR ---
rn notes inserted midline on right upper arm intact, infusing ns at 75 ml/hr intact. educated patient stay on prone position helping oxygenation. will monitoring.
--- NOTE | 2021-04-29 18:03 | NUR ---
rn notes administered Robitussin 10mg po prn for coughing per patient request. Due medication administered, o2-88% at this time . patient eating dinner. pm care done. call light within to reach. endorsed oncoming nurse follow plan of care.
[2021-04-29] MEDS: ZINC SULFATE 220 MG CAPSULE PO SCH (19:49)
--- NOTE | 2021-04-29 19:55 | NUR ---
RN NOTE PATIENT AWAKE, ALERT, AND ORIENTED X4. SELF PRONING AT THIS TIME, TOLERATING WELL. ON HFNC 40L 100% FIO2 AND NON REBREATHER @ 15L. O2 SAT 88%. DENIES ANY PAIN OR DISCOMFORT AT THIS TIME. IV ACCESS LEFT UPPER ARM MIDLINE WITH NS @ 75ML/HR. NO SIGNS OF INFILTRATION. BED LOCKED AND IN LOWEST POSITION. CALL LIGHT WITHIN REACH. ALL NEEDS ANTICIPATED.
[2021-04-29] MEDS: MELATONIN 5 MG PO SCH (21:04)
[2021-04-30] VITALS (39 sets, daily range): BP systolic 36–150; BP diastolic 20–87
[2021-04-30 04:27] LABS: BASOPHILS # (AUTO) 0.1 K/uL (0.0-0.2); BASOPHILS % (AUTO) 0.6 % (0.0-2.0); EOSINOPHILS % (AUTO) 0.2 % (0.0-6.0); HEMATOCRIT 40 % (33-45); HEMOGLOBIN 13.1 g/dL (11.5-14.8); LYMPHOCYTES # (AUTO) 0.6 K/uL (0.8-4.8); LYMPHOCYTES % (AUTO) 5.1 % (20.0-44.0); MEAN CORPUSCULAR HGB CONC 33 g/dl (31.0-36.0); MEAN CORPUSCULAR VOLUME 78 fL (82-100); MONOCYTES # (AUTO) 0.6 K/uL (0.1-1.30); MONOCYTES % (AUTO) 5.4 % (2.0-12.0); NEUTROPHILS # (AUTO) 10.5 K/uL (1.8-8.9); NEUTROPHILS % (AUTO) 88.7 % (43.0-81.0); PLATELET COUNT (AUTO) 313 K/uL (150-450); RED BLOOD CELL COUNT(AUTO) 5.08 MIL/uL (4.0-5.2); WHITE BLOOD COUNT (AUTO) 11.8 K/uL (4.3-11.0)
[2021-04-30 04:37] LABS: CREATININE 0.7 mg/dL (0.6-1.3); POTASSIUM 4.2 mmol/L (3.5-5.1)
--- NOTE | 2021-04-30 06:33 | NUR ---
RN NOTE PATIENT RESTING IN BED. ALERT AND ORIENTED X4. ON PRONE POSITION. ON HFNC 40L 100% FIO2 AND NON REBREATHER @ 15L. O2 SAT 88%. IV ACCESS LEFT UPPER ARM MIDLINE WITH NS @ 75ML/HR. NO SIGNS OF INFILTRATION. KEPT CLEAN AND DRY. BED LOCKED AND IN LOWEST POSITION. CALL LIGHT WITHIN REACH. WILL ENDORSE TO AM SHIFT.
--- NOTE | 2021-04-30 07:58 | NUR ---
RT PATIENT REC'D ON HFNC 40L 100% WITH A NRB MASK. PATIENT RESPONSIVE, AND ALERT, ABLE TO PRONE HERSELF. SPO2 REMAINS ABOVE 88%. PATIENT IN CRITICAL CONDITION WILL CONT TO MONITOR IF LEVEL OF CONSCIOUSNESS CHANGES. Addendum: 04/30/21 at 1330 by CHIDI DENISE RT Amended: Links added.
--- NOTE | 2021-04-30 08:00 | NUR ---
rn notes received patient in the bed lying in the prone position. O2- 88%, fio2-40, [id number]%. refused pain, was complaining of felling cold,given extra blanket. tolerated breakfast well. due medication administered, vss. patient using diaper, redness on perineal area. Seen patient via hospitalist KENIA Graham, new order is chest x-ray today , and labs for tomorrow,.orders taken and carried out.
[2021-04-30] MEDS: CHOLECALCIFEROL 1,000 UNIT TABLET (VIT D3) PO SCH (08:23)
[2021-04-30] MEDS: PANTOPRAZOLE 40 MG TABLET.DR PO SCH (08:23)
[2021-04-30] MEDS: ZINC SULFATE 220 MG CAPSULE PO SCH (08:23)
[2021-04-30] MEDS: MELOXICAM 7.5 MG TABLET PO SCH (08:24)
[2021-04-30] MEDS: ASPIRIN EC 81 MG TABLET.DR PO SCH (08:24)
[2021-04-30] MEDS: LEVOTHYROXINE SODIUM 50 MCG TABLET PO SCH (08:25)
[2021-04-30] MEDS: AMLODIPINE BESYLATE 5 MG TABLET PO SCH (08:25)
[2021-04-30] MEDS: DEXAMETHASONE SOD PHOSPHATE 10 MG/ML VIAL IV SCH ×2 (08:25→17:25)
[2021-04-30] MEDS: ENOXAPARIN SODIUM 40 MG/0.4 ML DISP.SYRIN SQ SCH ×2 (08:29→21:42)
[2021-04-30] MEDS: GUAIFENESIN/D-METHORPHAN HB 5 ML UDC PO PRN ×2 (08:30→18:17)
--- NOTE | 2021-04-30 08:31 | NUR ---
rn notes administered Robitussin 5 ml po prn syrup for cough, no discharge, vss , T- 97.8 F.
[2021-04-30] MEDS: HYDROCHLOROTHIAZIDE 25 MG TABLET PO SCH (10:22)
[2021-04-30] MEDS: LOSARTAN POTASSIUM 50 MG TABLET PO SCH (10:22)
[2021-04-30] MEDS: METOPROLOL SUCCINATE 50 MG TAB.SR.24H PO SCH (10:22)
[2021-04-30] MEDS: Z GUARD REMEDY 2 OZ OINT TP SCH (12:56)
[2021-04-30] MEDS: IV NS 0.9% 1,000 ML IV PRN (12:57)
--- NOTE | 2021-04-30 13:00 | NUR ---
RN NOTES X-RAY:Persistent diffuse bilateral infiltrates suggesting edema and/or pneumonia. There is little change since previous study. PATIENT IN PRONE POSITION, TO 85%, A/O X3, NO RESPIRATORY DISTRESS. TOLERATED LUNCH 25%. WILL MONITORING.
--- NOTE | 2021-04-30 18:17 | NUR ---
rn notes patient eating, administered Robitussin 5 mg/ml prn for cough per patient request, o2-81 at this time, patient pm care done, due medication administered. infusing ns at 75 ml/hr on left ua intact. call light within to reach. endorsed oncoming nurse follow plan of care.
--- NOTE | 2021-04-30 20:00 | NUR ---
RN NOTE RECEIVED PT AWAKE, ON PRONE POSITION. PT ON HFNC 40L 100% WITH NRB MASK. NO DISTRESS NOTED. PT DENIES ANY SOB OR PAIN AT THIS TIME. MIDLINE ON BOBBI PATENT AND INTACT, NS RUNNING AT 75ML/HR. ALL SAFETY MEASURES IN PLACE, CALL LIGHT WITHIN REACH. WILL CONTINUE TO MONITOR.
[2021-04-30] MEDS: MELATONIN 5 MG PO SCH (22:00)
[2021-05-01] VITALS (37 sets, daily range): BP systolic 66–161; BP diastolic 40–93
[2021-05-01] MEDS: IV NS 0.9% 1,000 ML IV PRN ×2 (03:16→17:17)
[2021-05-01 05:36] LABS: BASOPHILS % (AUTO) 0.3 % (0.0-2.0); EOSINOPHILS % (AUTO) 0.3 % (0.0-6.0); HEMATOCRIT 42 % (33-45); HEMOGLOBIN 13.9 g/dL (11.5-14.8); LYMPHOCYTES % (AUTO) 7.4 % (20.0-44.0); MEAN CORPUSCULAR HGB CONC 33 g/dl (31.0-36.0); MEAN CORPUSCULAR VOLUME 78 fL (82-100); MONOCYTES % (AUTO) 7.1 % (2.0-12.0); NEUTROPHILS # (AUTO) 11.6 K/uL (1.8-8.9); NEUTROPHILS % (AUTO) 84.9 % (43.0-81.0); PLATELET COUNT (AUTO) 348 K/uL (150-450); RED BLOOD CELL COUNT(AUTO) 5.42 MIL/uL (4.0-5.2); WHITE BLOOD COUNT (AUTO) 13.7 K/uL (4.3-11.0)
[2021-05-01 05:54] LABS: ALBUMIN 2.8 g/dL (3.4-5.0); BILIRUBIN,TOTAL 0.4 mg/dL (0.2-1.0); CALCIUM, SERUM 8.2 mg/dL (8.5-10.1); CREATININE 0.7 mg/dL (0.6-1.3); MAGNESIUM 1.8 mg/dL (1.8-2.4); PHOSPHORUS 3.6 mg/dL (2.5-4.9); POTASSIUM 4.2 mmol/L (3.5-5.1); TOTAL PROTEIN, SERUM 6.2 g/dL (6.4-8.2)
--- NOTE | 2021-05-01 06:48 | NUR ---
RN NOTE PT REMAIN ON PRONE, NO DISTRESS NOTED. CONTINUE ON HFNC WITH NRB. PT O2 SAT DROPS TO 70S WHEN CHANGING POSITION, ENCOURAGED PT TO BE IN PRONE POSITION AT ALL TIMES. O2 SAT AT 89-92 AT THIS TIME. DENIES ANY PAIN. MIDLINE REMAIN PATENT AND INTACT, CONTINUE ON IVF NS AT 75ML/HR. ALL SAFETY MEASURES MAINTAINED. WILL ENDORSE TO NEXT SHIFT NURSE FOR MYRNA.
[2021-05-01] MEDS: LEVOTHYROXINE SODIUM 50 MCG TABLET PO SCH (07:30)
[2021-05-01] MEDS: PANTOPRAZOLE 40 MG TABLET.DR PO SCH (07:30)
--- NOTE | 2021-05-01 07:55 | NUR ---
RN NOTE PATIENT IS IN BED WITH HOB FLAT AND LYING PRONE. PATIENT IS ON 15L NRB AND 40L HIGH FLOW WITH NO SIGNS OF DISTRESS. PATIENT IS AOX4. BOBBI MIDLINE IS PATENT AND INTACT. BED IS LOCKED IN THE LOWEST POSITION, 3 GUARD RAILS RAISED, CALL RIZO WITHIN REACH, AND ALL HOSPITAL SAFETY PRECAUTIONS ARE BEING FOLLOWED. WILL CONTINUE TO MONITOR THROUGHOUT SHIFT.
--- NOTE | 2021-05-01 08:25 | NUR ---
RN NOTE OKAY TO HOLD PO MEDICATIONS DUE TO PATIENT'S O2 DESATURATING PER DR. ESCOBAR.
[2021-05-01] MEDS: DEXAMETHASONE SOD PHOSPHATE 10 MG/ML VIAL IV SCH ×2 (08:27→16:00)
[2021-05-01] MEDS: ENOXAPARIN SODIUM 40 MG/0.4 ML DISP.SYRIN SQ SCH ×2 (08:28→22:33)
[2021-05-01] MEDS: ASPIRIN EC 81 MG TABLET.DR PO SCH (08:40)
[2021-05-01] MEDS: LOSARTAN POTASSIUM 50 MG TABLET PO SCH (08:40)
[2021-05-01] MEDS: HYDROCHLOROTHIAZIDE 25 MG TABLET PO SCH (08:41)
[2021-05-01] MEDS: MELOXICAM 7.5 MG TABLET PO SCH (08:41)
[2021-05-01] MEDS: ZINC SULFATE 220 MG CAPSULE PO SCH (08:42)
[2021-05-01] MEDS: AMLODIPINE BESYLATE 5 MG TABLET PO SCH (08:42)
[2021-05-01] MEDS: METOPROLOL SUCCINATE 50 MG TAB.SR.24H PO SCH (08:42)
[2021-05-01] MEDS: CHOLECALCIFEROL 1,000 UNIT TABLET (VIT D3) PO SCH (08:42)
[2021-05-01] MEDS: Z GUARD REMEDY 2 OZ OINT TP SCH (08:42)
[2021-05-01 09:41] LABS: ABG BASE EXCESS 0.7 mmol/L; ABG OXYGEN SATURATION 67.2 % (92.0-98.5); ABG PCO2 35.3 mmHg (35.0-45.0); ABG PH 7.453 (7.350-7.450); ABG PO2 32.8 mmHg (75.0-100.0); AaDO2 644.9 mmHg; COHb 1.6 % (0.5-1.5); MetHb 0.2 % (0.0-1.5); SITE, ABG Right Radial; VENT MODE, BG 100% high flow + NRM
--- NOTE | 2021-05-01 10:00 | NUR ---
ABG RESULTS GIVEN TO DR. ESCOBAR-PATIENT SEVERELY HYPOXEMIC ON DOUBLE SET UP -HI FLOW 40L /100% PLUS 100% NRBM. DR. ESCOBAR SPEAKING TO FAMILY AT [place] , ROJELIO DAUGHTER REGARDING INTUBATION. ANEASTHESIOLOGIST CONTACTED BY SALES PRODUCT MANAGER. RSI FOR INTUBATION READY.
--- NOTE | 2021-05-01 10:30 | NUR ---
AWAITING FOR FAMILY DECISIONS REGARDING INTUBATION. PATIENT REMAINS AWAKE AND FOLLOWS SIMPLE COMMANDS ON DOUBLE 02 SET UP.
[2021-05-01] MEDS ORDERED: IV NS 0.9% 500 ML IV ONE (11:00)
--- NOTE | 2021-05-01 11:00 | NUR ---
PT. INTUBATED DUE TO 33 PAO2 AND 60'S SATURATION. INTUBATED BY ANESTHESIOLOGIST WITH 7.5 ET TUBE SECURED @ 20 CM LIPLINE. CO2 DETECTOR CHANGED TO YELLOW COLOR POST INTUBATION. BREATH SOUNDS CLEAR WITH SYMMETRICAL CHEST RISE POST INTUBATION. VENT SETTINGS BELOW PER DR. ESCOBAR: AC 24 VT 450ML FIO2 100% PEEP +14 VENT PLUGGED INTO RED OUTLET WITH ALARMS ON AND FUNCTIONING. BVM @ BEDSIDE. Addendum: 05/01/21 at 1144 by NATASHA JANG RT Amended: Links added.
--- NOTE | 2021-05-01 11:19 | NUR ---
Traditional Maori Health Practitioner note: Traditional Maori Health Practitioner consultation requested by Dr. Bryan, to meet with patient's family who was requesting to transfer patient to another hospital. This DRAPERY HEAD FORMER and ACSW Eliana arrived to the ICU, met with Dr. Bryan to discuss patient's and family's needs. Per Dr. Bryan, patient was being stabilized and monitored at this time. This DRAPERY HEAD FORMER and ACSW Eliana then met with patient's daughter Asia, along with a second daughter and a granddaughter. Asia expressed family's wishes to initiate a transfer for the patient to one of the following hospitals: [facility], [facility], [facility], or [facility]. The family stated that if patient needed specific breathing machines that [facility] does not have, they wanted to be in a place where the machine was readily available. This DRAPERY HEAD FORMER stated that their request would be referred to case management, as they are the ones that handles discharges and transfers, but that the transfer would depend on patient being stable and the doctor stating that patient needs a higher level of care. Asia was insistent on initiating the transfer, regardless of patient's status. This DRAPERY HEAD FORMER stated that DRAPERY HEAD FORMER would have case management contact Asia to discuss their request. This DRAPERY HEAD FORMER and ACSW Eliana then met with YOVANI Kim and informed her of above. Judy stated that case management would follow-up with the patient's family to discuss their request.
[2021-05-01] MEDS: PROPOFOL 100 ML IV PRN ×3 (11:40→18:19)
--- NOTE | 2021-05-01 11:40 | NUR ---
TACHYPNEIC OVER THE VENT. TRYING TO REACH ETT. DIPRIVAN DRIP STARTED AND BILATERAL WRIST RESTRAINTS APPLIED. FAMILY AWARE.
--- NOTE | 2021-05-01 12:30 | NUR ---
ONGOING UPDATES WITH FAMILY REGARDING PATIENT CONDITION AND PLAN OF CARE. DR. ESCOBAR ALSO SPOKE TO FAMILY PRE AND POST INTUBATION.
[2021-05-01 12:35] LABS: ABG BASE EXCESS -1.7 mmol/L; ABG OXYGEN SATURATION 89.3 % (92.0-98.5); ABG PH 7.348 (7.350-7.450); ABG PO2 59.5 mmHg (75.0-100.0); AaDO2 608.5 mmHg; COHb 1.6 % (0.5-1.5); MetHb 0.3 % (0.0-1.5); O2Hb 87.6 % (94.0-97.0); PEEP,BG 14 cm H2O; SITE, ABG Right Radial; VT, ABG 450 mL
--- NOTE | 2021-05-01 12:51 | NUR ---
VENT CHANGES BELOW PER DR. ESCOBAR: PEEP +16 Addendum: 05/01/21 at 1252 by NATASHA JANG RT Amended: Links added.
[2021-05-01] MEDS: NOREPINEPHRINE 8 MG in IV NS 0.9% 242 ML IV PRN ×2 (13:03→21:12)
--- NOTE | 2021-05-01 13:05 | NUR ---
RN NOTE PATIENT HAS BP OF 60/40. STARTED PATIENT ON LEVOPHED. WILL CONTINUE TO MONITOR.
--- NOTE | 2021-05-01 13:27 | NUR ---
back to +[address] trejo Addendum: 05/01/21 at 1328 by NATASHA JANG RT Amended: Links added.
[2021-05-01] MEDS ORDERED: ROCURONIUM BROMIDE 50 MG/5 ML IV ONE (13:48)
[2021-05-01] MEDS ORDERED: LIDOCAINE 100MG/5ML DISP SYR IV ONE (13:48)
[2021-05-01] MEDS ORDERED: PROPOFOL 200 MG/20 ML VIAL IV ONE (13:48)
[2021-05-01 16:29] LABS: ABG BASE EXCESS -4.6 mmol/L; ABG OXYGEN SATURATION 95.1 % (92.0-98.5); ABG PCO2 41.6 mmHg (35.0-45.0); ABG PH 7.325 (7.350-7.450); ABG PO2 80.9 mmHg (75.0-100.0); AaDO2 590.5 mmHg; COHb 1.1 % (0.5-1.5); MetHb 0.3 % (0.0-1.5); O2Hb 93.8 % (94.0-97.0); PEEP,BG 14 cm H2O; SITE, ABG Right Radial; VT, ABG 450 mL
--- NOTE | 2021-05-01 16:42 | NUR ---
fio2 decrease from 100% to 90% per dr. trejo. Addendum: 05/01/21 at 1643 by NATASHA JANG RT Amended: Links added.
--- NOTE | 2021-05-01 18:52 | NUR ---
RN NOTE PATIENT IS IN BED WITH HOB SEMI SIMPSON'S. PATIENT IS ON VENT WITH NO SIGNS OF DISTRESS. PATIENT IS SEDATED. BOBBI MIDLINE IS PATENT AND INTACT. WONG CATHETER IS IN PLACE. BED IS LOCKED IN THE LOWEST POSITION, 3 GUARD RAILS RAISED, CALL RIZO WITHIN REACH, AND ALL HOSPITAL SAFETY PRECAUTIONS ARE BEING FOLLOWED. WILL ENDORSE TO PARTS CATALOGUER RN.
--- NOTE | 2021-05-01 19:58 | NUR ---
RECRUITING MANAGER. INITIAL ASSESSMENT. RECEIVED THE PT REST ON THE BED. ORALLY INTUBATED. ETT 7.5, AC 24, LIP 20, TV 450,FIO2 90%. PEEP 14. SAT 97. LT NARE NGT INTACT. CLAMPED. FC PATENT. CASSIUS SOFT WRIST RESTRAINT CHECKED AND RELEASED. NO INJURY OR REDNESS NOTED. HOB ELEVATED. WILL CONTINUE TO MONITOR VITALS.
[2021-05-01] MEDS: MELATONIN 5 MG PO SCH (22:00)
--- NOTE | 2021-05-01 22:13 | NUR ---
SPUTUM SAMPLE COLLECTED RN NOTIFIED.
--- NOTE | 2021-05-01 22:16 | NUR ---
PT IS INTUBATED 7.5 ETT SECURED AT 20CM AT THE LIP. PT TOLERATING VENT SETTINGS. SX'D SMALL AMT OF THICK YELLOW SECRETIONS. ETT CUFF CHECKED. VENT ALARMS SET AND AUDIBLE. VENT PLUGGED INTO RED OUTLET. CONTINUE TO MONITOR. Addendum: 05/01/21 at 2219 by WICHO JACKSON RT Amended: Links added.
--- NOTE | 2021-05-01 23:00 | NUR ---
agricultural equipment sales engineer melatonin not given. pt orally intubated. sedated with propofol. notified marisa toro
[2021-05-02] VITALS (86 sets, daily range): BP systolic 87–154; BP diastolic 45–92
--- NOTE | 2021-05-02 01:07 | NUR ---
horticultural specialty grower inside. remaining same vent setting on. will continue to monitor
[2021-05-02] MEDS: PROPOFOL 100 ML IV PRN ×4 (01:16→12:09)
[2021-05-02] MEDS ORDERED: NOREPINEPHRINE 8MG/250ML RTU 250 ML IV ONE (03:48)
[2021-05-02] MEDS: IV NS 0.9% 1,000 ML IV PRN ×3 (04:01→18:19)
[2021-05-02] MEDS: NOREPINEPHRINE 8 MG in IV NS 0.9% 242 ML IV PRN ×2 (04:04→18:32)
[2021-05-02 04:32] LABS: BASOPHILS # (AUTO) 0.1 K/uL (0.0-0.2); BASOPHILS % (AUTO) 0.2 % (0.0-2.0); EOSINOPHILS % (AUTO) 0.1 % (0.0-6.0); HEMATOCRIT 39 % (33-45); LYMPHOCYTES # (AUTO) 1.4 K/uL (0.8-4.8); LYMPHOCYTES % (AUTO) 6.7 % (20.0-44.0); MEAN CORPUSCULAR HGB CONC 33 g/dl (31.0-36.0); MEAN CORPUSCULAR VOLUME 78 fL (82-100); MONOCYTES # (AUTO) 1.5 K/uL (0.1-1.30); MONOCYTES % (AUTO) 7.3 % (2.0-12.0); NEUTROPHILS # (AUTO) 18.1 K/uL (1.8-8.9); NEUTROPHILS % (AUTO) 85.7 % (43.0-81.0); PLATELET COUNT (AUTO) 378 K/uL (150-450); RED BLOOD CELL COUNT(AUTO) 5.05 MIL/uL (4.0-5.2); WHITE BLOOD COUNT (AUTO) 21.1 K/uL (4.3-11.0)
--- NOTE | 2021-05-02 04:39 | NUR ---
auricular therapist. am care given. remaining same vent settings tolerated well. hob elevated. fc patent. urine draining. kenyatta soft wrist restraint checked and released. no injury or redness noted. ivf ns 125 ml/h. turn and reposition q2h. will continue to monitor vitals.
[2021-05-02 05:10] LABS: CALCIUM, SERUM 7.7 mg/dL (8.5-10.1); CREATININE 0.8 mg/dL (0.6-1.3); MAGNESIUM 1.9 mg/dL (1.8-2.4); PHOSPHORUS 3.7 mg/dL (2.5-4.9); POTASSIUM 3.7 mmol/L (3.5-5.1)
--- NOTE | 2021-05-02 06:50 | NUR ---
agriculture extension specialist. pt noted tachypneic propofol increased to 50 mcg/kg/min, fentanyl started per protocol
[2021-05-02] MEDS: FENTANYL CITRATE/PF 2,500 MCG in IV NS 0.9% 200 ML IV PRN ×2 (07:19→21:51)
--- NOTE | 2021-05-02 08:00 | NUR ---
RN NOTES RECEIVED PATIENT ETT/VENT SETTING FIO2- 90, PEEP 14. NO ACUTE RESPIRATORY DISTRESS, BEDSIDE MONITOR SHOWS 59 BRADYCARDIA, BP 121/72. T-99. PATIENT SEDATED WITH FENTANYL 7.5 MG/ML, AND DIPRIVAN 50MCG/KG/HR. ALSO GETTING LEVOPHED 0.1 , AND NS AT 40 ML/HR. NGT CLAMPED. GET ORDER FROM DR ESCOBAR START REGULAR FEEDING @30ML/HR, WONG DRAINING VIA GRAVITY. PATIENT GETTING ABG TESTING AT THIS TIME. ASSIST TURN AND REPOSTION Q 2 HR.SEEN PATIENT VIA LABORATORY SUPERVISOR DRA ESCOBAR ,AND HOSPITALIST KENIA ORTEZ. WILL MONITORING.
[2021-05-02 08:43] LABS: ABG BASE EXCESS -2.5 mmol/L; ABG OXYGEN SATURATION 95.4 % (92.0-98.5); ABG PCO2 40.4 mmHg (35.0-45.0); ABG PH 7.366 (7.350-7.450); ABG PO2 79.1 mmHg (75.0-100.0); AaDO2 521.2 mmHg; COHb 0.9 % (0.5-1.5); MetHb 0.3 % (0.0-1.5); O2Hb 94.3 % (94.0-97.0); SITE, ABG Right Radial
[2021-05-02] MEDS: MELOXICAM 7.5 MG TABLET PO SCH (09:08)
[2021-05-02] MEDS: ZINC SULFATE 220 MG CAPSULE PO SCH (09:08)
[2021-05-02] MEDS: METOPROLOL SUCCINATE 50 MG TAB.SR.24H PO SCH (09:09)
[2021-05-02] MEDS: HYDROCHLOROTHIAZIDE 25 MG TABLET PO SCH (09:09)
[2021-05-02] MEDS: ASPIRIN EC 81 MG TABLET.DR PO SCH (09:09)
[2021-05-02] MEDS: CHOLECALCIFEROL 1,000 UNIT TABLET (VIT D3) PO SCH (09:09)
[2021-05-02] MEDS: LOSARTAN POTASSIUM 50 MG TABLET PO SCH (09:10)
[2021-05-02] MEDS: LEVOTHYROXINE SODIUM 50 MCG TABLET PO SCH (09:10)
[2021-05-02] MEDS: PANTOPRAZOLE 40 MG TABLET.DR PO SCH (09:10)
[2021-05-02] MEDS: AMLODIPINE BESYLATE 5 MG TABLET PO SCH (09:11)
[2021-05-02] MEDS: DEXAMETHASONE SOD PHOSPHATE 10 MG/ML VIAL IV SCH ×2 (09:11→17:21)
[2021-05-02] MEDS: ENOXAPARIN SODIUM 40 MG/0.4 ML DISP.SYRIN SQ SCH ×2 (09:19→21:17)
[2021-05-02] MEDS: Z GUARD REMEDY 2 OZ OINT TP SCH (09:20)
[2021-05-02] MEDS: JEVITY 1.2 CAL 1,000 ML BOTTLE GT PRN (10:19)
[2021-05-02] MEDS: MIDAZOLAM HCL 100 MG in IV NS 0.9% 80 ML IV PRN (10:51)
--- NOTE | 2021-05-02 10:51 | NUR ---
rn notes get order versed drip per dr Bryan, because of triglyceride is 401. started versed infusion at this time 1 mg /ml iv drip. will monitoring.
--- NOTE | 2021-05-02 12:10 | NUR ---
RN NOTES TITRATED DOWN DIPRIVAN, AND TITRATED UP FENTANYL, AND VERSED INFUSION. PATIENT FIO2-90%. ASSIST TURN AND REPOSTION Q 2 HR, SEEN PATIENT VIA WOUND PA, GET ORDER LOTRIMIN CREAM FOR REDNESS PERINEAL REDNESS.
[2021-05-02] MEDS: PROSOURCE / PROSTAT (PYXIS) 30 ML UDC GT SCH ×2 (13:46→17:22)
[2021-05-02] MEDS: CLOTRIMAZOLE 1% 15 GM TUBE TP SCH ×2 (15:00→17:57)
--- NOTE | 2021-05-02 16:00 | NUR ---
rn notes patient willing to transfer to the [facility], FAMILY AWARE OF.
[2021-05-02] MEDS ORDERED: MELATONIN 5 MG GT SCH (17:36)
[2021-05-02] MEDS ORDERED: GUAIFENESIN/D-METHORPHAN HB 5 ML UDC GT PRN (17:37)
[2021-05-02] MEDS ORDERED: PHARMACY TO CHANGE PO MEDS TO GT/NG XX PRN (18:00)
[2021-05-02] MEDS: ACETAMINOPHEN 650 MG/SUPP.RECT RC PRN (18:14)
--- NOTE | 2021-05-02 18:30 | NUR ---
RN NOTES PM CARE DONE, DUE MEDICATION ADMINISTERED, PATIENT TOLERATING ETT SETTING WELL, FIO2-90%, PEEP-14. KEEP HOB ELEVATED FOR ASPIRATION PRECAUTION, VSS, INFUSING VERSED 3MG/ML, LEVOPHED 0.08MCG/KG/HR, FENTANYL 100MCG/KG/HR, AND NS@40ML/HR INTACT ON LEFT UA PICC LINE . RUNNING NGT @ 30ML/HR. ASSIST TURN AND REPOSTION Q 2 HR. T-99.2 ADMINISTERED TYLENOL 650 SUP, AND COOLING MEASURE, ASSIST TURN AND REPOSITION Q 2HR. D/C PAPERWORK COMPLETED. ENDORSED ONCOMING NURSE FOLLOW PLAN OF CARE.
--- NOTE | 2021-05-02 21:26 | NUR ---
FIO2 INCREASED TO 100% DUE TO LOW O2 SAT NOTIFIED RN.
[2021-05-02] MEDS: MELATONIN 5 MG PO SCH (21:46)
[2021-05-03] VITALS (81 sets, daily range): BP systolic 89–144; BP diastolic 34–85
--- NOTE | 2021-05-03 00:12 | NUR ---
patient sedated on fentanyl 100 mcg, versed 5mg, levophed at 0.08mcg/kg/min. ns 40 hr.patient has et-tube ac 24, tv 450, fi02 90%, peep 5 sat89%. lungs diminish has ngt inplace receiving jevity 30 hr. has f/c draining smith urine.temp 98.8 no distress noted.
[2021-05-03 04:24] LABS: BASOPHILS % (AUTO) 0.1 % (0.0-2.0); HEMATOCRIT 38 % (33-45); HEMOGLOBIN 12.5 g/dL (11.5-14.8); LYMPHOCYTES # (AUTO) 0.9 K/uL (0.8-4.8); LYMPHOCYTES % (AUTO) 4.5 % (20.0-44.0); MEAN CORPUSCULAR HGB CONC 33 g/dl (31.0-36.0); MEAN CORPUSCULAR VOLUME 79 fL (82-100); MONOCYTES # (AUTO) 0.7 K/uL (0.1-1.30); MONOCYTES % (AUTO) 3.5 % (2.0-12.0); NEUTROPHILS # (AUTO) 17.6 K/uL (1.8-8.9); NEUTROPHILS % (AUTO) 91.9 % (43.0-81.0); PLATELET COUNT (AUTO) 319 K/uL (150-450); RED BLOOD CELL COUNT(AUTO) 4.83 MIL/uL (4.0-5.2); WHITE BLOOD COUNT (AUTO) 19.1 K/uL (4.3-11.0)
[2021-05-03 04:41] LABS: ALBUMIN 2.7 g/dL (3.4-5.0); BILIRUBIN,TOTAL 0.4 mg/dL (0.2-1.0); CALCIUM, SERUM 7.8 mg/dL (8.5-10.1); CREATININE 0.6 mg/dL (0.6-1.3); PHOSPHORUS 3.1 mg/dL (2.5-4.9)
--- NOTE | 2021-05-03 07:00 | NUR ---
RADIOGRAPHER CARDIAC CATHETERIZATION Bedside report taken from [facility] nurse Delgadillo RN. pt sedated and intubated on versed and fentanyl but opens eyes, perrla, trace movements in bue and ble 1/5 but does not follow commands. pt sr hr 60-80s. pt has ngt getting jevity @30 ml/hr which is goal, pt has 5 ml residuals. bowel sounds present. pt has orozco, oliguric, intact and draining smith color urine. pt has generalized, bue and ble edema 2+. bue and ble pulses present but weak. all lines traced. all drips verified. safety measures in place. will continue to monitor.
[2021-05-03] MEDS: NOREPINEPHRINE 8 MG in IV NS 0.9% 242 ML IV PRN (07:37)
[2021-05-03 07:52] LABS: ABG BASE EXCESS 1.1 mmol/L; ABG OXYGEN SATURATION 91.8 % (92.0-98.5); ABG PCO2 42.7 mmHg (35.0-45.0); ABG PH 7.404 (7.350-7.450); ABG PO2 61.3 mmHg (75.0-100.0); COHb 0.7 % (0.5-1.5); MetHb 0.3 % (0.0-1.5); O2Hb 90.9 % (94.0-97.0); SITE, ABG Right Radial
--- NOTE | 2021-05-03 08:10 | NUR ---
LIFEGUARD Per radiologist pt has new small to moderate right pneumothorax. Dr Bryan at bedside made aware of pneumothorax, charge nurse Mellissa aware, preparing for chest tube placement at bedside. Dr Bryan and charge nurse Mellissa aware that all po blood pressure medications held d/t pt on levophed for hypotension, ok per md.
[2021-05-03] MEDS: MIDAZOLAM HCL 100 MG in IV NS 0.9% 80 ML IV PRN (08:31)
[2021-05-03] MEDS: AMLODIPINE BESYLATE 5 MG TABLET GT SCH (09:00)
[2021-05-03] MEDS: LOSARTAN POTASSIUM 50 MG TABLET GT SCH (09:00)
[2021-05-03] MEDS: HYDROCHLOROTHIAZIDE 25 MG TABLET GT SCH (09:00)
[2021-05-03] MEDS: METOPROLOL SUCCINATE 50 MG TAB.SR.24H PO SCH (09:00)
--- NOTE | 2021-05-03 09:00 | NUR ---
STOCK WORKER Called pt daughter Asia and obtained telephone consent for right chest tube placement, consent witnessed with charge nurse Mellissa and placed in pt chart.
--- NOTE | 2021-05-03 09:03 | NUR ---
CARE NURSE RN ER DR Toussaint at bedside placing right chest tube, pt tolerating well. vitals stable. will continue to monitor.
--- NOTE | 2021-05-03 09:20 | NUR ---
INVESTMENT CONSULTANT Right chest tube secured and dressed. Charge nurse Mellissa at bedside assessing chest tube site, dressing, chest tube atrium and suction setup, charge nurse aware that there is no tidaling or bubbling in the chest tube chamber, per charge nurse no complications noted, chest tube working correctly.
[2021-05-03] MEDS: ZINC SULFATE 220 MG CAPSULE GT SCH (09:33)
[2021-05-03] MEDS: CHOLECALCIFEROL 1,000 UNIT TABLET (VIT D3) GT SCH (09:33)
[2021-05-03] MEDS: LEVOTHYROXINE SODIUM 50 MCG TABLET GT SCH (09:33)
[2021-05-03] MEDS: PANTOPRAZOLE 40 MG/PACK PACK GT SCH (09:33)
[2021-05-03] MEDS: MELOXICAM 7.5 MG TABLET GT SCH (09:33)
[2021-05-03] MEDS: ASPIRIN EC 81 MG TABLET.DR PO SCH (09:33)
[2021-05-03] MEDS: DEXAMETHASONE SOD PHOSPHATE 10 MG/ML VIAL IV SCH ×2 (09:34→17:21)
[2021-05-03] MEDS: PROSOURCE / PROSTAT (PYXIS) 30 ML UDC GT SCH ×3 (09:36→17:21)
[2021-05-03] MEDS: ENOXAPARIN SODIUM 40 MG/0.4 ML DISP.SYRIN SQ SCH ×2 (09:36→20:36)
[2021-05-03] MEDS: CLOTRIMAZOLE 1% 15 GM TUBE TP SCH ×2 (09:37→17:24)
[2021-05-03] MEDS: Z GUARD REMEDY 2 OZ OINT TP SCH (09:37)
--- NOTE | 2021-05-03 09:46 | NUR ---
PUBLIC SPEAKING INSTRUCTOR nursery technician at bedside doing chest xray post right chest tube placement.
[2021-05-03] MEDS: IV NS 0.9% 1,000 ML IV PRN (09:47)
--- NOTE | 2021-05-03 11:17 | NUR ---
LEGAL AID Dr Trejo at bedside assessing pt and updated on pt status. md aware that pt spo2 91-94 %, ok per md. Md assessed chest tube and site, suction, and atrium, md pleased with set up, no changes needed, minimal tidaling and bubbling per md, ok per md. md reviewed chest xray, per md chest tube in optimal position. fio2 decreased to 90% and peep increased to [address] trejo, no other orders at this time. will continue to monitor.
[2021-05-03] MEDS ORDERED: CEFEPIME 1 GM in IV D5W 50 ML IV SCH (11:30)
--- NOTE | 2021-05-03 12:20 | NUR ---
[place] PRESS OPERATOR Ashley DEBT COLLECTION SPECIALIST at bedside assessing pt and updated on pt status. heel scorer aware that pt has right chest tube placed in am, levophed off at 10 am and that pt has bp med in am that were held d/t pt on levophed and hypotension, heel scorer to review pt med list and make changes. no orders at this time. will continue to monitor.
[2021-05-03] MEDS: CEFEPIME 2 GM in IV D5W 100 ML IV SCH ×2 (13:20→20:32)
--- NOTE | 2021-05-03 14:00 | NUR ---
PORT STEWARD fentanyl increased and versed increased per charge nurse ahmet RN, to keep respiratory rate < 30, per md
--- NOTE | 2021-05-03 15:50 | NUR ---
BABY FORMULA MIXER Pt bathed and cleaned. linen change done. skin check done, no pressure ulcers noted, blisters noted on right upper arm and left elbow. pt tolerated well. vitals stable. safety measures in place. will continue to monitor.
[2021-05-03] MEDS: FENTANYL CITRATE/PF 2,500 MCG in IV NS 0.9% 200 ML IV PRN ×2 (17:23→17:27)
--- NOTE | 2021-05-03 19:00 | NUR ---
HOOP COILER Bedside report given to [facility] Annabelle JAIME. pt sedated and intubated fio2 80%, tolerating well. pt clean and dry. all lines traced. all drips verified. safety measures in place. vitals stable. no signs of acute distress at this time.
--- NOTE | 2021-05-03 20:00 | NUR ---
TAB MACHINE OPERATOR. INITIAL ASSESSMENT. RECEIVED THE PT REST ON THE BED. ORALLY INTUBATED. SEDATED WITH FENTANYL AND VERSED. ETT 7.5, LIP 20,AC 24, TV 450,FIO2 80%, PEEP 16. SAT 96%. NO ACUTE DISTRESS NOTED. SPOUT LINER SHOWING S MADELAINE. IV LT UPPER ARM PICC LINE. IVF NS 40 ML/H, VERSED, 7MCG. FENTANYL 200 MCG, LT NARE NGT INTACT. JEVITY 30ML/H.TINUE TO MONITOR VITALS. CASSIUS SOFT WRIST RESTRAINT CHECKED AND RELEASED NO INJURY OR REDNESS NOTED
[2021-05-03] MEDS: MELATONIN 5 MG PO SCH (22:00)
--- NOTE | 2021-05-03 22:02 | NUR ---
RN NOTE MELATONIN NON ADMINISTERED, PT IS SEDATED.
[2021-05-04] VITALS (87 sets, daily range): BP systolic 83–138; BP diastolic 38–83
--- NOTE | 2021-05-04 | NUR ---
horticulture worker. ngt residual 230. feeding held. will continue to monitor
--- NOTE | 2021-05-04 | NUR ---
horticultural specialty grower inside. remaining same vent settings tolerated well. no acute distress noted. student dean showing s chelle. will continue to monitor vitals.
[2021-05-04] MEDS: JEVITY 1.2 CAL 1,000 ML BOTTLE GT PRN (01:22)
[2021-05-04] MEDS: IV NS 0.9% 1,000 ML IV PRN (01:23)
[2021-05-04] MEDS: FENTANYL CITRATE/PF 2,500 MCG in IV NS 0.9% 200 ML IV PRN ×2 (03:29→16:47)
[2021-05-04] MEDS: MIDAZOLAM HCL 100 MG in IV NS 0.9% 80 ML IV PRN ×2 (03:31→20:07)
[2021-05-04] MEDS: CEFEPIME 2 GM in IV D5W 100 ML IV SCH ×3 (03:36→19:53)
[2021-05-04 05:26] LABS: BASOPHILS % (AUTO) 0.2 % (0.0-2.0); HEMATOCRIT 34 % (33-45); HEMOGLOBIN 11.3 g/dL (11.5-14.8); LYMPHOCYTES # (AUTO) 0.9 K/uL (0.8-4.8); LYMPHOCYTES % (AUTO) 5.4 % (20.0-44.0); MEAN CORPUSCULAR HGB CONC 33 g/dl (31.0-36.0); MEAN CORPUSCULAR VOLUME 80 fL (82-100); NEUTROPHILS % (AUTO) 88.4 % (43.0-81.0); PLATELET COUNT (AUTO) 246 K/uL (150-450); RED BLOOD CELL COUNT(AUTO) 4.26 MIL/uL (4.0-5.2); WHITE BLOOD COUNT (AUTO) 15.9 K/uL (4.3-11.0)
[2021-05-04 05:37] LABS: CALCIUM, SERUM 8.1 mg/dL (8.5-10.1); CREATININE 0.7 mg/dL (0.6-1.3); MAGNESIUM 2.3 mg/dL (1.8-2.4); PHOSPHORUS 3.6 mg/dL (2.5-4.9); POTASSIUM 4.3 mmol/L (3.5-5.1)
--- NOTE | 2021-05-04 06:21 | NUR ---
agricultural production engineer. am care given. remaining same vent setting tolerated well. sat 96%. no acute distress noted. cardiac exercise physiologist showing s chelle.fc patent. urine draining. kenyatta soft wrist restraint checked and released, no injury or redness noted. hob elevated. ngt feeding not tolerated well.turn and reposition q2h. will continue to monitor vitals
--- NOTE | 2021-05-04 07:10 | NUR ---
RN NOTES RECEIVED PT ON BED, INTUBATED AND SEDATED ON VERSED AND FENTANYL DRIP , INITIAL ASSESSMENT. ETT 7.5, LIP 20,AC 24, TV 450,FIO2 80%, PEEP 16. SAT 96%. NO ACUTE DISTRESS NOTED. ON TELE SB HR IN 50'S , IV LT UPPER ARM PICC LINE. IVF NS 40 ML/H, VERSED, 7MCG. FENTANYL 200 MCG/HR, LEFT NGT CLAMPED AT THIS TIME, DUE TO HIGH RESIDUAL, CASSIUS SOFT WRIST RESTRAINT CHECKED AND RELEASED NO INJURY OR REDNESS NOTED, SR UP x3, CALL LIGHT WITHIN EASY REACH, BED LOCKED AND IN LOWEST POSITION, CONTINUE TO MONITOR.
--- NOTE | 2021-05-04 07:30 | NUR ---
RT Pt received orally intubated on mechanical ventilation with noted settings. Vent is plugged into red outlet, BVM by bedside. Vent alarms are set and audible. No SOB or respiratory distress noted. Addendum: 05/04/21 at 1750 by PABLO SHANNON RT Amended: Links added.
--- NOTE | 2021-05-04 08:00 | NUR ---
RN NOTES TF RESTARTED AT 10CC/HR , CONTINUE TO MONITOR.
[2021-05-04 08:10] LABS: ABG BASE EXCESS 0.5 mmol/L; ABG OXYGEN SATURATION 91.1 % (92.0-98.5); ABG PCO2 41.9 mmHg (35.0-45.0); ABG PO2 60.3 mmHg (75.0-100.0); AaDO2 466.1 mmHg; COHb 0.8 % (0.5-1.5); MetHb 0.5 % (0.0-1.5); O2Hb 89.9 % (94.0-97.0); PEEP,BG 16 cm H2O; SITE, ABG Right Brachial; VT, ABG 450 mL
[2021-05-04] MEDS: CHOLECALCIFEROL 1,000 UNIT TABLET (VIT D3) GT SCH (08:13)
[2021-05-04] MEDS: DEXAMETHASONE SOD PHOSPHATE 10 MG/ML VIAL IV SCH ×2 (08:13→16:43)
[2021-05-04] MEDS: ASPIRIN EC 81 MG TABLET.DR PO SCH (08:13)
[2021-05-04] MEDS: LEVOTHYROXINE SODIUM 50 MCG TABLET GT SCH (08:13)
[2021-05-04] MEDS: MELOXICAM 7.5 MG TABLET GT SCH (08:13)
[2021-05-04] MEDS: METOPROLOL SUCCINATE 50 MG TAB.SR.24H PO SCH (08:14)
[2021-05-04] MEDS: ENOXAPARIN SODIUM 40 MG/0.4 ML DISP.SYRIN SQ SCH ×2 (08:14→20:06)
[2021-05-04] MEDS: LOSARTAN POTASSIUM 50 MG TABLET GT SCH (08:15)
[2021-05-04] MEDS: AMLODIPINE BESYLATE 5 MG TABLET GT SCH (08:16)
[2021-05-04] MEDS: HYDROCHLOROTHIAZIDE 25 MG TABLET GT SCH (08:16)
[2021-05-04] MEDS: Z GUARD REMEDY 2 OZ OINT TP SCH (08:17)
[2021-05-04] MEDS: CLOTRIMAZOLE 1% 15 GM TUBE TP SCH ×2 (08:17→16:46)
[2021-05-04] MEDS: PANTOPRAZOLE 40 MG/PACK PACK GT SCH (08:19)
[2021-05-04] MEDS: PROSOURCE / PROSTAT (PYXIS) 30 ML UDC GT SCH ×3 (08:19→16:43)
[2021-05-04] MEDS: ZINC SULFATE 220 MG CAPSULE GT SCH (08:19)
[2021-05-04] MEDS: NOREPINEPHRINE 8 MG in IV NS 0.9% 242 ML IV PRN (09:10)
[2021-05-04] MEDS: ACETAMINOPHEN 650 MG/SUPP.RECT RC PRN (11:50)
--- NOTE | 2021-05-04 12:00 | NUR ---
YENI JAMES ET TUBE CARE DONE, TF AT 10CC/HR RUNNING, 40CC RESIDUAL NOTED, CONTINUE TO MONITOR.
--- NOTE | 2021-05-04 18:56 | NUR ---
RN NOTES PT REMAINS INTUBATED AND SEDATED ON VERSED AT 6 MG/HR , FENTANYL AT 200MCG/KG, LEVO AT .O2MCG/KG/MIN AND NS AT 40CC/HR RUNNING , TOLERAING VENT SETTING WELL, HR IN SB AT 50'S , TF AT 10CC/HR RUNNING , 50 CC RESIDUAL NOTED, WONG DRANING TO GRAVITY, L UPPER ARM MIDLINE AND PICC LINE SITE CLEAN, DRY , INTACT, SR UP x3, CALL LIGHT WITHIN EASY REACH, BED LOCKED AND IN LOWEST POSITION, [facility] OF CARE .
--- NOTE | 2021-05-04 19:15 | NUR ---
RECEIVED PT ON BED, SEDATED ON ETT .02/14, VENT SETTING PER MD FIO2 80% SPO2 97% NO SIGN OF RESPIRATORY DISTRESS, TELE MONITOR READS SINUS MADELAINE 50'S, HAVE BOBBI PICC DRESSING DRY AND INTACT WITH ONGOING NS @ FENTANYL @ 200 MCG/HR AND VERSED 6MCG/HR INFUSING WELL, ALSO HAVE BOBBI ,IDLINE DRESSING CLEAN DRY AND INTACT WITH ONGOING NS @ 40ML/HR AND LEVOPHED @ 0.02 MCG/KG/MIN INFUSING WELL, HAVE BILATERAL WRIST SOFT RESTRAINTS FOR SELF EXTUBATION PRECAUTION HAVE RCHEST TUBE DRAINING VIA LIS, HAVE WONG CATHETER IN PLACE DRAINING DONG YELLOW URINE VIA GRAVITY, BED ON LOWEST POSITION AND LOCKED SIDE RAILS UP X2 WILL CONT TO MONITOR THE PT
[2021-05-04] MEDS: MELATONIN 5 MG PO SCH (21:20)
[2021-05-05] VITALS (100 sets, daily range): BP systolic 68–145; BP diastolic 45–75
--- NOTE | 2021-05-05 02:15 | NUR ---
PT ON BED STILL SEDATED WITH VERSED 6 MG/HR AND FENTANYL 200 MCG/HR ON ETT/VENT SETTING PER MD FIO2 80% SPO2 98% NO SIGN OF RESPIRATORY DISTRESS, NO PAIN NOTED STILL ON LEVIOPHED 0.02 MCG/KG/MIN BP STABLE SBP ON LOW 100'S WILL CONT TO MONITOR
[2021-05-05] MEDS: CEFEPIME 2 GM in IV D5W 100 ML IV SCH ×3 (03:14→20:08)
[2021-05-05 04:55] LABS: BASOPHILS % (AUTO) 0.1 % (0.0-2.0); EOSINOPHILS % (AUTO) 0.2 % (0.0-6.0); HEMATOCRIT 34 % (33-45); HEMOGLOBIN 11.1 g/dL (11.5-14.8); LYMPHOCYTES % (AUTO) 7.3 % (20.0-44.0); MEAN CORPUSCULAR HGB CONC 33 g/dl (31.0-36.0); MEAN CORPUSCULAR VOLUME 79 fL (82-100); MONOCYTES # (AUTO) 0.9 K/uL (0.1-1.30); MONOCYTES % (AUTO) 6.6 % (2.0-12.0); NEUTROPHILS # (AUTO) 11.3 K/uL (1.8-8.9); NEUTROPHILS % (AUTO) 85.8 % (43.0-81.0); PLATELET COUNT (AUTO) 224 K/uL (150-450); RED BLOOD CELL COUNT(AUTO) 4.26 MIL/uL (4.0-5.2); WHITE BLOOD COUNT (AUTO) 13.1 K/uL (4.3-11.0)
[2021-05-05] MEDS: IV NS 0.9% 1,000 ML IV PRN (05:01)
[2021-05-05 05:06] LABS: CREATININE 0.6 mg/dL (0.6-1.3); MAGNESIUM 2.1 mg/dL (1.8-2.4); POTASSIUM 4.5 mmol/L (3.5-5.1)
[2021-05-05] MEDS: FENTANYL CITRATE/PF 2,500 MCG in IV NS 0.9% 200 ML IV PRN ×2 (05:54→20:07)
--- NOTE | 2021-05-05 06:55 | NUR ---
PT ON BED STILL SEDATED WITH VERSED 6 MG/HR FENTANYL @ 175 MCG/HR ON ETT/VENT SETTING ORDER FIO2 80% SPO2 97% NO SIGN OF RESPIRATORY DISTRESS, NO PAIN NOTED, TELE MONITOR READS SINUS MADELAINE 50'S LEVOPHED WAS TURN OFF @ 0400 BP STABLE, NO SIGNIFICANT CHANGES ON CONDITION NOTED, ALL NEEDS ATTENDED, ALL DUE MEDS GIVEN, BILATERAL WRIST SOFT RESTRAINTS MAINTAINED CIRCULATION CHECKED REGULARLY,ON NGTUBE FEEDING OF JEVITY 1.2 @ 20ML/HR RIGHT CHEST, CHEST TUBE OUTPUT OF 10ML OF SEROSANGUINEOUS FLUID CONNECTED TO LIS BED ON LOWEST POSITION AND LOCKED SIDE RAILS UP X 2 WILL ENDORSED TO AM SHIFT NURSE
--- NOTE | 2021-05-05 07:55 | NUR ---
RT PATIENT REC'D ORALLY INTUBATED ON [facility] VENT IN CRITICAL CONDITION. VENT ALARMS CHECKED + AUDIBLE. PER DR WHITLOCK PEEP DECREASED TO 14 AND FIO2 LOWERED TO 65%. AMBU BAG AT HOB OF BED. Addendum: 05/05/21 at 1730 by CHIDI DENISE RT Amended: Links added.
[2021-05-05 08:02] LABS: ABG BASE EXCESS 1.8 mmol/L; ABG OXYGEN SATURATION 97.7 % (92.0-98.5); ABG PCO2 46.9 mmHg (35.0-45.0); ABG PH 7.384 (7.350-7.450); ABG PO2 110.4 mmHg (75.0-100.0); AaDO2 410.8 mmHg; COHb 0.1 % (0.5-1.5); MetHb 0.4 % (0.0-1.5); O2Hb 97.2 % (94.0-97.0); SITE, ABG Right Radial
[2021-05-05] MEDS: ASPIRIN EC 81 MG TABLET.DR PO SCH (08:39)
[2021-05-05] MEDS: PANTOPRAZOLE 40 MG/PACK PACK GT SCH (08:39)
[2021-05-05] MEDS: ZINC SULFATE 220 MG CAPSULE GT SCH (08:39)
[2021-05-05] MEDS: METOPROLOL SUCCINATE 50 MG TAB.SR.24H PO SCH (08:40)
[2021-05-05] MEDS: MELOXICAM 7.5 MG TABLET GT SCH (08:40)
[2021-05-05] MEDS: DEXAMETHASONE SOD PHOSPHATE 10 MG/ML VIAL IV SCH ×2 (08:40→16:18)
[2021-05-05] MEDS: CHOLECALCIFEROL 1,000 UNIT TABLET (VIT D3) GT SCH (08:40)
[2021-05-05] MEDS: LEVOTHYROXINE SODIUM 50 MCG TABLET GT SCH (08:40)
[2021-05-05] MEDS: LOSARTAN POTASSIUM 50 MG TABLET GT SCH (08:40)
[2021-05-05] MEDS: ENOXAPARIN SODIUM 40 MG/0.4 ML DISP.SYRIN SQ SCH ×2 (08:45→20:08)
[2021-05-05] MEDS: CLOTRIMAZOLE 1% 15 GM TUBE TP SCH ×2 (08:45→16:19)
[2021-05-05] MEDS: Z GUARD REMEDY 2 OZ OINT TP SCH (08:46)
[2021-05-05] MEDS: AMLODIPINE BESYLATE 5 MG TABLET GT SCH (08:46)
[2021-05-05] MEDS: HYDROCHLOROTHIAZIDE 25 MG TABLET GT SCH (08:46)
[2021-05-05] MEDS: PROSOURCE / PROSTAT (PYXIS) 30 ML UDC GT SCH ×3 (08:48→16:18)
--- NOTE | 2021-05-05 09:16 | NUR ---
rn notes patient pulse suddenly drooped 40 beats a minutes, at this time, and get order stat EKG. within in a minutes increased 42- to 46.
--- NOTE | 2021-05-05 10:15 | NUR ---
RN NOTES PATIENT HR IS 47 AT THIS TIME, EKG RESULT SANDED TO THE Dr SHEPARD, AND KENIA ORTEZ WELL. PER STRIKE ON MACHINE OPERATOR Dr WHITLOCK GET TO ORDER TO DECREASE FENTANYL 150 MCG/HR, ORDER TAKEN AND CARRIED OUT.
[2021-05-05] MEDS ORDERED: ATROPINE SULFATE INJ 0.4 MG/ML VIAL IV PRN (10:30)
--- NOTE | 2021-05-05 10:36 | NUR ---
RN NOTES HR 54 AT THIS TIME. SEEN HOSPITALIST PÉREZ AT THI TIME. . WILL MONITORING.
[2021-05-05] MEDS: FLUDROCORTISONE 0.1 MG TABLET NG SCH ×3 (11:52→23:22)
--- NOTE | 2021-05-05 12:00 | NUR ---
RN NOTES Sinus bradycardia. Possibly sedation related. Keep atropine on standby. Shock. Likely sedation vs septic. Unlikely tension physiology. Impression/Plan Continue full ventilator support. Weaning FiO2 as tolerated and will continue to attempt to wean PEEP as able to limit positive pressure given pneumothorax and pneumomediastinum. Cardiology consulted for sinus bradycardia. Will limit sedation as able. Atropine pen at bedside. Can consider adding dopamine gtt or isoproterenol gtt to keep HR>40. Keep chest tube to -20 cm H2O suction. Daily CXR. Will reinforce chest tube site with more tape to secure the site from further movement. Wean pressors as able for target MAP>65.
[2021-05-05] MEDS: HYDROCORTISONE SOD SUCCINATE 100 MG/2 ML VIAL IV SCH ×2 (12:43→20:08)
[2021-05-05] MEDS: MIDAZOLAM HCL 100 MG in IV NS 0.9% 80 ML IV PRN (13:55)
--- NOTE | 2021-05-05 14:00 | NUR ---
RN NOTES NOTIFIED Dr BOWDEN ABOUT BABBLING CHEST TUBE, AND DNP PÉREZ , PER SURGEON RESPONSE WAS PUT PHYSICIAN CONSULTATION. ORDER TAKEN AND CARRIED OUT.
[2021-05-05] MEDS: METOCLOPRAMIDE HCL 10 MG/2 ML VIAL IV PRN (15:36)
[2021-05-05] MEDS: JEVITY 1.2 CAL 1,000 ML BOTTLE GT PRN (16:10)
--- NOTE | 2021-05-05 17:00 | NUR ---
rn notes HR -43 at this time, titrated sedation fentanyl down to 100mcg/kg/hr, due medication administered.
--- NOTE | 2021-05-05 18:30 | NUR ---
RN NOTES PM CARE DONE, ASIST TURN AND REPOSTION Q 2 HR. DUE MEDICATION ADMINISTERED. PATIENT HR DROP 40 TO 42MIN A HR AGAIN, BRADYCARDIC, TITRATED VERSED 5MG/ML/HR. INFUSING LEVOPHED 0.02 MCG/KG/HR, FENTANYL 100MCG/KG/HR, NS AT 40ML/HR ON LEFT PICC LINE INTACT. RUNNING JEVITY 1.2 @20ML/HR, KEEP HOB ELEVATED. CHEST TUBE MARKED 65 CC. WONG DRAINING VIA GRAVITY OUTPUT WAS 650ML. CALLED PHARMACY FOR ATROPIN PEN BEDSIDE. ENDORSED ONCOMING NURSE FOLLOW PLAN OF CARE.
[2021-05-05] MEDS ORDERED: ATROPINE SULFATE INJ 1 MG/ML VIAL IV PRN (19:00)
--- NOTE | 2021-05-05 19:20 | NUR ---
RECEIVED PT ON BED, SEDATED ON ETT 7.02/14, VENT SETTING PER MD FIO2 80% SPO2 97% NO SIGN OF RESPIRATORY DISTRESS, TELE MONITOR READS SINUS MADELAINE 40'S, HAVE BOBBI PICC DRESSING DRY AND INTACT WITH ONGOING NS @ FENTANYL @ 100 MCG/HR AND VERSED 5MCG/HR INFUSING WELL, ALSO HAVE BOBBI MIDLINE DRESSING CLEAN DRY AND INTACT WITH ONGOING NS @ 40ML/HR AND LEVOPHED @ 0.02 MCG/KG/MIN INFUSING WELL, HAVE BILATERAL WRIST SOFT RESTRAINTS FOR SELF EXTUBATION PRECAUTION HAVE RCHEST TUBE DRAINING VIA LIS,BUBBLING IN WATER SEAL CHAMBER NOTED, PER AM SHIFT NURSE SHE ALREADY INFORMED TONY ORTEZ EMERGENCY CARE TECH AND MADE CONSULTATION ORDER FOR DR BOWDEN, HAVE WONG CATHETER IN PLACE DRAINING DONG YELLOW URINE VIA GRAVITY, BED ON LOWEST POSITION AND LOCKED SIDE RAILS UP X2 WILL CONT TO MONITOR THE PT
--- NOTE | 2021-05-05 19:56 | NUR ---
CALE SPICER DNP MADE AWARE OF THE BUBBLING ON WATER SEAL OF THE PT CHEST TUBE
[2021-05-05] MEDS: MELATONIN 5 MG PO SCH (22:00)
[2021-05-06] VITALS (81 sets, daily range): BP systolic 87–156; BP diastolic 48–86
[2021-05-06] MEDS: CEFEPIME 2 GM in IV D5W 100 ML IV SCH ×3 (03:44→19:51)
[2021-05-06] MEDS: HYDROCORTISONE SOD SUCCINATE 100 MG/2 ML VIAL IV SCH ×3 (04:17→20:19)
[2021-05-06 05:23] LABS: BASOPHILS % (AUTO) 0.2 % (0.0-2.0); EOSINOPHILS % (AUTO) 0.1 % (0.0-6.0); HEMATOCRIT 33 % (33-45); LYMPHOCYTES # (AUTO) 0.5 K/uL (0.8-4.8); LYMPHOCYTES % (AUTO) 6.4 % (20.0-44.0); MEAN CORPUSCULAR HGB CONC 33 g/dl (31.0-36.0); MEAN CORPUSCULAR VOLUME 79 fL (82-100); MONOCYTES # (AUTO) 0.5 K/uL (0.1-1.30); MONOCYTES % (AUTO) 5.9 % (2.0-12.0); NEUTROPHILS # (AUTO) 6.8 K/uL (1.8-8.9); NEUTROPHILS % (AUTO) 87.4 % (43.0-81.0); PLATELET COUNT (AUTO) 166 K/uL (150-450); RED BLOOD CELL COUNT(AUTO) 4.15 MIL/uL (4.0-5.2); WHITE BLOOD COUNT (AUTO) 7.8 K/uL (4.3-11.0)
[2021-05-06] MEDS: FLUDROCORTISONE 0.1 MG TABLET NG SCH ×4 (05:24→23:42)
[2021-05-06 05:45] LABS: ALBUMIN 2.4 g/dL (3.4-5.0); BILIRUBIN,TOTAL 0.5 mg/dL (0.2-1.0); CALCIUM, SERUM 7.7 mg/dL (8.5-10.1); CREATININE 0.5 mg/dL (0.6-1.3); MAGNESIUM 2.2 mg/dL (1.8-2.4); PHOSPHORUS 3.2 mg/dL (2.5-4.9); POTASSIUM 4.2 mmol/L (3.5-5.1); TOTAL PROTEIN, SERUM 5.5 g/dL (6.4-8.2)
[2021-05-06] MEDS: IV NS 0.9% 1,000 ML IV PRN (06:03)
[2021-05-06] MEDS: MIDAZOLAM HCL 100 MG in IV NS 0.9% 80 ML IV PRN (06:14)
--- NOTE | 2021-05-06 06:47 | NUR ---
PT ON BED STILL SEDATED WITH VERSED 5 MG/HR FENTANYL @ 100 MCG/HR ON ETT/VENT SETTING ORDER FIO2 80% SPO2 97% NO SIGN OF RESPIRATORY DISTRESS, NO PAIN NOTED, TELE MONITOR READS SINUS RHYTHM 70'S LEVOPHED WAS TURN OFF @ 0200 BP STABLE, NO SIGNIFICANT CHANGES ON CONDITION NOTED, ALL NEEDS ATTENDED, ALL DUE MEDS GIVEN, BILATERAL WRIST SOFT RESTRAINTS MAINTAINED CIRCULATION CHECKED REGULARLY,ON NGTUBE FEEDING OF JEVITY 1.2 @ 25ML/HR RIGHT CHEST, CHEST TUBE OUTPUT OF 10ML OF SEROSANGUINEOUS FLUID CONNECTED TO LIS BED ON LOWEST POSITION AND LOCKED SIDE RAILS UP X 2 WILL ENDORSED TO AM SHIFT NURSE
--- NOTE | 2021-05-06 08:00 | NUR ---
RN NOTES PT ON BED SEDATED WITH VERSED 5MG/HR FENTANYL @ 150 MCG/HR ON ETT/VENT SETTING ORDER FIO2 100% SPO2 97% NO SIGN OF RESPIRATORY DISTRESS, TELE MONITOR READS SINUS RHYTHM 66 NO SIGNIFICANT CHANGES ON CONDITION NOTED. ALL DUE MEDS GIVEN, BILATERAL WRIST SOFT RESTRAINTS MAINTAINED CIRCULATION CHECKED REGULARLY. NG TUBE FEEDING OF JEVITY 1.2 @ 20ML/HR , RESIDUAL IS 80ML, CHEST TUBE WATER CHAMBER IS BABBLING. PATIENT SCHEDULED NEW CHEST TUBE INSERTION. HOB ELEVATED FOR ASPIRATION PRECAUTION. WILL MONITORING.
--- NOTE | 2021-05-06 08:00 | NUR ---
RT Pt received orally intubated on mechanical ventilation with noted settings. Equal bilateral breath sounds and chest rise noted. Vent is plugged into red outlet. No SOB or respiratory distress is noted. Addendum: 05/06/21 at 1340 by PABLO SHANNON RT Amended: Links added.
[2021-05-06 08:09] LABS: ABG BASE EXCESS 3.2 mmol/L; ABG OXYGEN SATURATION 92.2 % (92.0-98.5); ABG PCO2 48.1 mmHg (35.0-45.0); ABG PH 7.394 (7.350-7.450); ABG PO2 63.5 mmHg (75.0-100.0); AaDO2 601.4 mmHg; MetHb 0.2 % (0.0-1.5); O2Hb 91.1 % (94.0-97.0); PEEP,BG 14 cm H2O; SITE, ABG Right Radial; VT, ABG 450 mL
[2021-05-06] MEDS: HYDROCHLOROTHIAZIDE 25 MG TABLET GT SCH (09:00)
[2021-05-06] MEDS: DEXAMETHASONE SOD PHOSPHATE 10 MG/ML VIAL IV SCH ×2 (09:03→17:26)
[2021-05-06] MEDS: LEVOTHYROXINE SODIUM 50 MCG TABLET GT SCH (09:03)
[2021-05-06] MEDS: ZINC SULFATE 220 MG CAPSULE GT SCH (09:04)
[2021-05-06] MEDS: PANTOPRAZOLE 40 MG/PACK PACK GT SCH (09:04)
[2021-05-06] MEDS: ASPIRIN EC 81 MG TABLET.DR PO SCH (09:04)
[2021-05-06] MEDS: MELOXICAM 7.5 MG TABLET GT SCH (09:04)
[2021-05-06] MEDS: ENOXAPARIN SODIUM 40 MG/0.4 ML DISP.SYRIN SQ SCH ×2 (09:05→20:21)
[2021-05-06] MEDS: PROSOURCE / PROSTAT (PYXIS) 30 ML UDC GT SCH ×3 (09:07→17:23)
[2021-05-06] MEDS: CLOTRIMAZOLE 1% 15 GM TUBE TP SCH ×2 (09:13→17:24)
[2021-05-06] MEDS: Z GUARD REMEDY 2 OZ OINT TP SCH (09:14)
[2021-05-06] MEDS: CHOLECALCIFEROL 1,000 UNIT TABLET (VIT D3) GT SCH (09:15)
--- NOTE | 2021-05-06 10:00 | NUR ---
RN NOTES NEW CHEST TUBE WAS INSERTED VIA ER MD. DRESSING INTACT. CHEST X_RAY ORDERED. WILL MONITORING.
--- NOTE | 2021-05-06 13:56 | NUR ---
RN NOTES HR DROP 38 AT THIS TIME, DECREASED SEDATION FENTANYL 175MCG/KG AT THIS TIME. DUE MEDICATION ADMINISTERED. WILL MONITORING.
[2021-05-06] MEDS: METOCLOPRAMIDE HCL 10 MG/2 ML VIAL IV PRN ×2 (14:04→23:42)
--- NOTE | 2021-05-06 14:04 | NUR ---
RN NOTES ADMINISTERED REGLAN 10MG IV PUSH PRN.
[2021-05-06] MEDS: FENTANYL CITRATE/PF 2,500 MCG in IV NS 0.9% 200 ML IV PRN (15:35)
--- NOTE | 2021-05-06 18:30 | NUR ---
rn notes due medication administered, suction, oral care done, patient has no acute respiratory distress, fio2-100, peep-14. keep hob elevated for aspiration precaution. running Jevity 1.2 @20ml/hr intact. infusing fentanyl 170mcg/kg/hr, Versed 5ml/hr, and NS at 40ml/hr. assist turn and reposition q2hr. chest tube is babbling of water chamber, Dr Bryan aware of. CT output is 13ml. rechecked soft restrain circulation bilateral wrist. Patton output is 450ml. endorsed oncoming nurse follow plan of care.
--- NOTE | 2021-05-06 19:00 | NUR ---
RN NOTE RECEIVED PATIENT IN BED ORALLY INTUBATED BILATERAL UPPER AND LOWER EXTREMITIES EDEMA ON MECHANICAL VENT FIO2:70% PEEP 14 O2:96% SEDATED,FENTANYL 17.5 ML AND VERSED 5ML, ON NGT JEVITY 1.2 20CC/HR CHECK PLACEMENT IN PLACE WITH 30CC RESIDUAL,ON IV HYDRATION NS 0.9% 40CC/HR,HEAD OF THE BED ELEVATED,IV SITE IS ON LEFT UPPER ARM MIDLINE AND LEFT UPPER ARM PICC LINE,INTACT PATENT,WONG CATHETER IN PLACE,URINE DRAINING YELLOW AND CLEAR,CHEST TUBE ON RIGHT CHEST CONNECTED,SAFETY MEASURE IMPLEMENT CONTINUE TO MONITOR.
--- NOTE | 2021-05-06 21:20 | NUR ---
RT NOTE Pt rec'd orally intubated via ETT sz #7.5 secured at 20CM at the lipline. Pt on [facility] vent on AC mode settings as charted. ETT is patent and secured. Pt sx'd for thick small amt of pale yellow secretions. Alarms are set and audible. Ambu bag bedside. Vent plugged into red outlet. Will continue to monitor closely. Addendum: 05/06/21 at 2123 by SHARI HERNANDEZ RT Amended: Links added.
[2021-05-06] MEDS: MELATONIN 5 MG PO SCH (21:27)
[2021-05-07] VITALS (41 sets, daily range): BP systolic 83–124; BP diastolic 42–67
[2021-05-07] MEDS: MIDAZOLAM HCL 100 MG in IV NS 0.9% 80 ML IV PRN ×2 (01:59→18:05)
[2021-05-07] MEDS: CEFEPIME 2 GM in IV D5W 100 ML IV SCH ×3 (03:26→19:43)
[2021-05-07] MEDS: FENTANYL CITRATE/PF 2,500 MCG in IV NS 0.9% 200 ML IV PRN ×2 (03:41→18:02)
[2021-05-07] MEDS: HYDROCORTISONE SOD SUCCINATE 100 MG/2 ML VIAL IV SCH ×3 (04:11→20:12)
[2021-05-07 04:43] LABS: BASOPHILS % (AUTO) 0.2 % (0.0-2.0); EOSINOPHILS % (AUTO) 0.1 % (0.0-6.0); HEMATOCRIT 31 % (33-45); HEMOGLOBIN 10.4 g/dL (11.5-14.8); LYMPHOCYTES # (AUTO) 0.4 K/uL (0.8-4.8); LYMPHOCYTES % (AUTO) 3.7 % (20.0-44.0); MEAN CORPUSCULAR HGB CONC 34 g/dl (31.0-36.0); MEAN CORPUSCULAR VOLUME 79 fL (82-100); MONOCYTES # (AUTO) 0.4 K/uL (0.1-1.30); MONOCYTES % (AUTO) 4.5 % (2.0-12.0); NEUTROPHILS # (AUTO) 8.9 K/uL (1.8-8.9); NEUTROPHILS % (AUTO) 91.5 % (43.0-81.0); PLATELET COUNT (AUTO) 143 K/uL (150-450); RED BLOOD CELL COUNT(AUTO) 3.92 MIL/uL (4.0-5.2); WHITE BLOOD COUNT (AUTO) 9.7 K/uL (4.3-11.0)
[2021-05-07 05:04] LABS: ALBUMIN 2.2 g/dL (3.4-5.0); BILIRUBIN,TOTAL 0.4 mg/dL (0.2-1.0); CALCIUM, SERUM 7.9 mg/dL (8.5-10.1); CREATININE 0.6 mg/dL (0.6-1.3); MAGNESIUM 2.1 mg/dL (1.8-2.4); PHOSPHORUS 3.4 mg/dL (2.5-4.9); TOTAL PROTEIN, SERUM 5.2 g/dL (6.4-8.2)
[2021-05-07] MEDS: FLUDROCORTISONE 0.1 MG TABLET NG SCH ×4 (05:33→23:50)
--- NOTE | 2021-05-07 07:02 | NUR ---
RN NOTE PATIENT REMAINS ON SEDATED ORALLY INTUBATED ON MECHANICAL VENT FIO2:70% AND PEEP 14 ON NGT FEEDING JEVITY 1.2 20CC/HR ON VERSED 5ML AND FENTANYL 175 MCG IV SITE IS ON LEFT UPPER ARM PICC LINE AND MID LINE INTACT PATENT,ON IV HYDRATION NS 0.9% 40CC/HR CHEST TUBE CONNECT TO RIGHT CHEST,WONG IN [place] URINE DRAINING YELLOW AND CLEAR,ALL DUE MEDS GIVEN MD ORDERED KEPT CLEAN AND DRY REPOSITIONED EVERY 2 HOURS,HEAD OF THE BED ELEVATED ENDORSE NEXT COMING SHIFT FOR CONTINUATION OF CARE.
--- NOTE | 2021-05-07 07:17 | NUR ---
RN NOTE RECEIVED PATIENT IN BED, SEDATED ORALLY INTUBATED ON MECHANICAL VENT FIO2:70% AND PEEP 14 ON NGT FEEDING JEVITY 1.2 20CC/HR, WITH RSV OF 40 ML. ON VERSED 5ML AND FENTANYL 175 MCG IV SITE IS ON LEFT UPPER ARM PICC LINE AND MID LINE INTACT PATENT,ON IV HYDRATION NS 0.9% 40CC/HR CHEST TUBE CONNECT TO RIGHT CHEST, NOTED WITH INTERMITTENT BUBBLING,WONG IN PLACE URINE DRAINING YELLOW AND CLEAR, NOTED WITH BILATERAL SOFT WRIST RESTRAINT, CIRCULATION CHECKED, SAFETY MEASURES IN PLACE, WILL CONTINUE TO MONITOR.
[2021-05-07] MEDS: PANTOPRAZOLE 40 MG/PACK PACK GT SCH (08:09)
[2021-05-07] MEDS: DEXAMETHASONE SOD PHOSPHATE 10 MG/ML VIAL IV SCH ×2 (08:10→17:05)
[2021-05-07] MEDS: HYDROCHLOROTHIAZIDE 25 MG TABLET GT SCH (08:10)
[2021-05-07] MEDS: ZINC SULFATE 220 MG CAPSULE GT SCH (08:10)
[2021-05-07] MEDS: LEVOTHYROXINE SODIUM 50 MCG TABLET GT SCH (08:10)
[2021-05-07] MEDS: CHOLECALCIFEROL 1,000 UNIT TABLET (VIT D3) GT SCH (08:11)
[2021-05-07] MEDS: ASPIRIN EC 81 MG TABLET.DR PO SCH (08:11)
[2021-05-07] MEDS: PROSOURCE / PROSTAT (PYXIS) 30 ML UDC GT SCH ×3 (08:11→17:05)
[2021-05-07] MEDS: MELOXICAM 7.5 MG TABLET GT SCH (08:11)
[2021-05-07] MEDS: Z GUARD REMEDY 2 OZ OINT TP SCH (08:12)
[2021-05-07] MEDS: CLOTRIMAZOLE 1% 15 GM TUBE TP SCH ×2 (08:12→17:06)
[2021-05-07] MEDS: ENOXAPARIN SODIUM 40 MG/0.4 ML DISP.SYRIN SQ SCH ×2 (08:13→20:13)
[2021-05-07] MEDS: IV NS 0.9% 1,000 ML IV PRN (08:26)
--- NOTE | 2021-05-07 09:00 | NUR ---
POLYMERIZATION KETTLE OPERATOR NOTES SEEN AND EXAMINED BY DR. ESCOBAR WITH ORDERS TO INCREASE FEEDING OF JEVITY 1.2 TO 30ML/HR, RSV OF 40ML. AWARE. WILL CONTINUE TO MONITOR.
[2021-05-07] MEDS: JEVITY 1.2 CAL 1,000 ML BOTTLE GT PRN (17:01)
--- NOTE | 2021-05-07 19:00 | NUR ---
RECEIVED PT ON BED, SEDATED ON ETT 7.02/14, VENT SETTING PER MD FIO2 70% SPO2 97% NO SIGN OF RESPIRATORY DISTRESS, TELE MONITOR READS SINUS MADELAIEN 40'S, HAVE BOBBI PICC DRESSING DRY AND INTACT WITH ONGOING NS @ FENTANYL @ 175 MCG/HR AND VERSED 5MCG/HR INFUSING WELL, ALSO HAVE BOBBI MIDLINE DRESSING CLEAN DRY AND INTACT WITH ONGOING NS @ 40ML/HR INFUSING WELL, HAVE BILATERAL WRIST SOFT RESTRAINTS FOR SELF EXTUBATION PRECAUTION HAVE RCHEST TUBE DRAINING VIA LIS,BUBBLING IN WATER SEAL CHAMBER NOTED,MD IS AWARE PER AM SHIFT NURSE HAVE WONG CATHETER IN PLACE DRAINING DONG YELLOW URINE VIA GRAVITY, BED ON LOWEST POSITION AND LOCKED SIDE RAILS UP X2 WILL CONT TO MONITOR THE PT
--- NOTE | 2021-05-07 19:17 | NUR ---
RN NOTE PATIENT IN BED, SEDATED ORALLY INTUBATED ON MECHANICAL VENT FIO2:70% AND PEEP 12 ON NGT FEEDING JEVITY 1.2 30CC/HR, WITH RSV OF 50 ML. ON VERSED 5ML AND FENTANYL 175 MCG IV SITE IS ON LEFT UPPER ARM PICC LINE AND MID LINE INTACT PATENT,ON IV HYDRATION NS 0.9% 40CC/HR CHEST TUBE CONNECT TO RIGHT CHEST, NOTED WITH INTERMITTENT BUBBLING, WONG IN PLACE URINE DRAINING YELLOW AND CLEAR, SAFETY MEASURES MAINTAINED, ENDORSED TO ADMISSION NURSE NURSE FOR MYRNA.
[2021-05-07] MEDS: METOCLOPRAMIDE HCL 10 MG/2 ML VIAL IV PRN (19:44)
[2021-05-07] MEDS: MELATONIN 5 MG PO SCH (21:31)
[2021-05-08] VITALS (48 sets, daily range): BP systolic 95–136; BP diastolic 50–84
[2021-05-08] MEDS: CEFEPIME 2 GM in IV D5W 100 ML IV SCH ×3 (03:57→20:02)
[2021-05-08] MEDS: HYDROCORTISONE SOD SUCCINATE 100 MG/2 ML VIAL IV SCH ×3 (04:03→20:02)
[2021-05-08 04:43] LABS: EOSINOPHILS % (AUTO) 0.3 % (0.0-6.0); HEMATOCRIT 30 % (33-45); HEMOGLOBIN 10.3 g/dL (11.5-14.8); LYMPHOCYTES # (AUTO) 0.4 K/uL (0.8-4.8); MEAN CORPUSCULAR HGB CONC 34 g/dl (31.0-36.0); MEAN CORPUSCULAR VOLUME 79 fL (82-100); MONOCYTES # (AUTO) 0.4 K/uL (0.1-1.30); MONOCYTES % (AUTO) 4.1 % (2.0-12.0); NEUTROPHILS # (AUTO) 9.7 K/uL (1.8-8.9); NEUTROPHILS % (AUTO) 91.6 % (43.0-81.0); PLATELET COUNT (AUTO) 141 K/uL (150-450); RED BLOOD CELL COUNT(AUTO) 3.85 MIL/uL (4.0-5.2); WHITE BLOOD COUNT (AUTO) 10.6 K/uL (4.3-11.0)
[2021-05-08 05:00] LABS: CREATININE 0.2 mg/dL (0.6-1.3)
[2021-05-08 05:13] LABS: CALCIUM, SERUM 7.8 mg/dL (8.5-10.1); MAGNESIUM 2.1 mg/dL (1.8-2.4); POTASSIUM 3.9 mmol/L (3.5-5.1)
[2021-05-08] MEDS: FLUDROCORTISONE 0.1 MG TABLET NG SCH ×3 (05:53→17:21)
--- NOTE | 2021-05-08 06:48 | NUR ---
PT ON BED STILL SEDATED WITH VERSED 5 MG/HR FENTANYL @ 200 MCG/HR ON ETT/VENT SETTING ORDER FIO2 65% SPO2 95% NO SIGN OF RESPIRATORY DISTRESS, NO PAIN NOTED, TELE MONITOR READS SINUS MADELAINE 50'S NO SIGNIFICANT CHANGES ON CONDITION NOTED, ALL NEEDS ATTENDED, ALL DUE MEDS GIVEN, BILATERAL WRIST SOFT RESTRAINTS MAINTAINED CIRCULATION CHECKED REGULARLY,ON NGTUBE FEEDING OF JEVITY 1.2 @ 30ML/HR RIGHT CHEST, CHEST TUBE OUTPUT OF 10ML OF SEROSANGUINEOUS FLUID CONNECTED TO LIS BED ON LOWEST POSITION AND LOCKED SIDE RAILS UP X 2 WILL ENDORSED TO AM SHIFT NURSE
--- NOTE | 2021-05-08 07:40 | NUR ---
RN NOTES RECEIVED PATIENT SEDATED AND ORALLY INTUBATED WITH MECHVENT SETTINGS OF AC 24 TV 450 FIO2 65% PEEP 12. SB 50'S ON BEDSIDE MONITOR. LEFT NG TUBE TO JEVITY AT 30 ML/HR, CHEST TUBE INTACT WITH CONTINUOUS BUBBLING NOTED - MD AWARE. BOBBI MIDLINE, BOBBI PICC WITH FENTANYL AT 200MCG/HR, VERSED AT 5MG/HR, AND N/S AT 40ML/HR. WONG DRAINING BY GRAVITY. SAFETY CHECKS IN PLACE. WILL CONTINUE TO MONITOR.
[2021-05-08] MEDS: CHOLECALCIFEROL 1,000 UNIT TABLET (VIT D3) GT SCH (08:11)
[2021-05-08] MEDS: PROSOURCE / PROSTAT (PYXIS) 30 ML UDC GT SCH ×3 (08:11→16:29)
[2021-05-08] MEDS: PANTOPRAZOLE 40 MG/PACK PACK GT SCH (08:11)
[2021-05-08] MEDS: ASPIRIN EC 81 MG TABLET.DR PO SCH (08:11)
[2021-05-08] MEDS: ZINC SULFATE 220 MG CAPSULE GT SCH (08:11)
[2021-05-08] MEDS: MELOXICAM 7.5 MG TABLET GT SCH (08:12)
[2021-05-08] MEDS: LEVOTHYROXINE SODIUM 50 MCG TABLET GT SCH (08:12)
[2021-05-08] MEDS: HYDROCHLOROTHIAZIDE 25 MG TABLET GT SCH (08:12)
[2021-05-08] MEDS: DEXAMETHASONE SOD PHOSPHATE 10 MG/ML VIAL IV SCH ×2 (08:12→16:40)
[2021-05-08] MEDS: CLOTRIMAZOLE 1% 15 GM TUBE TP SCH ×2 (08:13→16:31)
[2021-05-08] MEDS: FENTANYL CITRATE/PF 2,500 MCG in IV NS 0.9% 200 ML IV PRN ×2 (08:13→19:58)
[2021-05-08] MEDS: Z GUARD REMEDY 2 OZ OINT TP SCH (08:13)
[2021-05-08 08:14] LABS: ABG BASE EXCESS 0.7 mmol/L; ABG OXYGEN SATURATION 87.4 % (92.0-98.5); ABG PCO2 44.4 mmHg (35.0-45.0); ABG PH 7.386 (7.350-7.450); AaDO2 362.2 mmHg; COHb 0.8 % (0.5-1.5); MetHb 0.2 % (0.0-1.5); O2Hb 86.5 % (94.0-97.0); SITE, ABG Right Radial
[2021-05-08] MEDS: ENOXAPARIN SODIUM 40 MG/0.4 ML DISP.SYRIN SQ SCH ×2 (08:17→20:02)
[2021-05-08] MEDS: IV NS 0.9% 1,000 ML IV PRN (12:36)
[2021-05-08] MEDS: MIDAZOLAM HCL 100 MG in IV NS 0.9% 80 ML IV PRN (15:01)
[2021-05-08] MEDS: JEVITY 1.2 CAL 1,000 ML BOTTLE GT PRN (16:28)
[2021-05-08] MEDS: IV NS 0.9% 250 ML IV PRN (17:22)
--- NOTE | 2021-05-08 18:25 | NUR ---
RN NOTES PATIENT REMAINS SEDATED AND ORALLY INTUBATED WITH MECHVENT SETTINGS OF AC 24 TV 450 FIO2 75% PEEP 12. SB 50'S ON BEDSIDE MONITOR. LEFT NG TUBE TO JEVITY AT 30 ML/HR, CHEST TUBE INTACT AND DRAINED 20MLS THIS SHIFT. BOBBI MIDLINE, BOBBI PICC WITH FENTANYL AT 200MCG/HR, VERSED AT 5MG/HR, AND N/S AT 40ML/HR. WONG DRAINED 850 MLS BY GRAVITY. SAFETY CHECKS IN PLACE. WILL ENDORSE TO NIGHT RN FOR CONTINUITY OF CARE.
--- NOTE | 2021-05-08 19:03 | NUR ---
RECEIVED PT ON BED, SEDATED ON ETT 7.02/14, VENT SETTING PER MD FIO2 75% SPO2 97% NO SIGN OF RESPIRATORY DISTRESS, TELE MONITOR READS SINUS RHYTHM 60'S, HAVE BOBBI PICC DRESSING DRY AND INTACT WITH ONGOING NS @ FENTANYL @ 200 MCG/HR AND VERSED 5MCG/HR INFUSING WELL, ALSO HAVE BOBBI MIDLINE DRESSING CLEAN DRY AND INTACT WITH ONGOING NS @ 40ML/HR INFUSING WELL,HAVE LEFT NGT IN PLACE PLACMENT CHECK AND VERIFIED WITH RUNNING JEVITY @ 30ML/HR RESIDUAL 25 ML HAVE BILATERAL WRIST SOFT RESTRAINTS FOR SELF EXTUBATION PRECAUTION HAVE RCHEST TUBE DRAINING VIA LIS,BUBBLING IN WATER SEAL CHAMBER NOTED,MD IS AWARE PER AM SHIFT NURSE HAVE WONG CATHETER IN PLACE DRAINING DONG YELLOW URINE VIA GRAVITY, BED ON LOWEST POSITION AND LOCKED SIDE RAILS UP X2 WILL CONT TO MONITOR THE PT
--- NOTE | 2021-05-08 19:33 | NUR ---
PT RCVD ORALLY INTUBATED WITH SIZE 7.5 ET TUBE SECURED @ 20 CM LIP LINE. PT IS SEDATED AND NO RESPIRATORY DISTRESS NOTED AT THIS TIME. ET TUBE PATENT AND SECURED. VENT PLUGGED INTO RED OUTLET, VENT ALARMS ON AND AUDIBLE. AMBU BAG @ BEDSIDE. WILL CONTINUE TO MONITOR T/O SHIFT.
[2021-05-08] MEDS: MELATONIN 5 MG PO SCH (21:21)
[2021-05-09] VITALS (45 sets, daily range): BP systolic 96–136; BP diastolic 48–75
[2021-05-09] MEDS: FLUDROCORTISONE 0.1 MG TABLET NG SCH ×4 (00:01→17:12)
[2021-05-09] MEDS: CEFEPIME 2 GM in IV D5W 100 ML IV SCH ×3 (04:04→21:50)
[2021-05-09] MEDS: HYDROCORTISONE SOD SUCCINATE 100 MG/2 ML VIAL IV SCH ×3 (04:04→21:49)
[2021-05-09 04:44] LABS: BASOPHILS % (AUTO) 0.2 % (0.0-2.0); EOSINOPHILS % (AUTO) 0.1 % (0.0-6.0); HEMATOCRIT 30 % (33-45); HEMOGLOBIN 10.1 g/dL (11.5-14.8); LYMPHOCYTES # (AUTO) 0.2 K/uL (0.8-4.8); LYMPHOCYTES % (AUTO) 2.4 % (20.0-44.0); MEAN CORPUSCULAR HGB CONC 34 g/dl (31.0-36.0); MEAN CORPUSCULAR VOLUME 80 fL (82-100); MONOCYTES # (AUTO) 0.3 K/uL (0.1-1.30); MONOCYTES % (AUTO) 3.2 % (2.0-12.0); NEUTROPHILS # (AUTO) 9.2 K/uL (1.8-8.9); NEUTROPHILS % (AUTO) 94.1 % (43.0-81.0); PLATELET COUNT (AUTO) 132 K/uL (150-450); RED BLOOD CELL COUNT(AUTO) 3.78 MIL/uL (4.0-5.2); WHITE BLOOD COUNT (AUTO) 9.8 K/uL (4.3-11.0)
[2021-05-09 04:58] LABS: CALCIUM, SERUM 7.5 mg/dL (8.5-10.1); CREATININE 0.6 mg/dL (0.6-1.3); MAGNESIUM 2.3 mg/dL (1.8-2.4); POTASSIUM 2.9 mmol/L (3.5-5.1)
--- NOTE | 2021-05-09 06:23 | NUR ---
REPORTED TO DR SHANDA REYES ONCALL THAT PT K+ IS 2.9 WITH ORDER TO GIVE KCL 40 MEQ X1 VIA GT AND KCL 10 MEQ X1 IV NOTED AND CARRIED OUT
[2021-05-09] MEDS ORDERED: POTASSIUM CHLORIDE 20 MEQ POWDER PACKET GT ONE (06:30)
--- NOTE | 2021-05-09 06:46 | NUR ---
PT ON BED STILL SEDATED WITH VERSED 6 MG/HR FENTANYL @ 200 MCG/HR ON ETT/VENT SETTING ORDER FIO2 75% SPO2 94% NO SIGN OF RESPIRATORY DISTRESS, NO PAIN NOTED, TELE MONITOR READS SINUS MADELAINE 50'S NO SIGNIFICANT CHANGES ON CONDITION NOTED, ALL NEEDS ATTENDED, ALL DUE MEDS GIVEN, BILATERAL WRIST SOFT RESTRAINTS MAINTAINED CIRCULATION CHECKED REGULARLY,ON NGTUBE FEEDING OF JEVITY 1.2 @ 30ML/HR RIGHT CHEST, CHEST TUBE OUTPUT OF 25ML OF SEROSANGUINEOUS FLUID CONNECTED TO LIS BED ON LOWEST POSITION AND LOCKED SIDE RAILS UP X 2 WILL ENDORSED TO AM SHIFT NURSE
[2021-05-09] MEDS: LEVOTHYROXINE SODIUM 50 MCG TABLET GT SCH (06:55)
[2021-05-09] MEDS ORDERED: POTASSIUM CL. PREMIX PERIPHER. 50 ML IV SCH (07:00)
--- NOTE | 2021-05-09 07:10 | NUR ---
RN OPENING NOTES RECEIVED PT ON BED, SEDATED ON ETT 7.520, VENT SETTINGS AC: 24, TV: 450, FiO2: 75%, PEEP: 12. O2 SAT @93%. NO SOB OR ANY S/S OF RESPIRATORY DISTRESS. TELE MONITOR READS SINUS RHYTHM. BOBBI PICC IN PLACE, DRESSING DRY AND INTACT WITH ONGOING FENTANYL @200 MCG/HR AND VERSED @6MCG/HR INFUSING WELL. BOBBI MIDLINE INTACT WITH ONGOING NS @40ML/HR INFUSING WELL. LEFT NGT IN PLACE, PLACEMENT CHECKED. RUNNING JEVITY @30ML/HR. R CHEST TUBE IN PLACE. BUBBLING IN WATER SEAL CHAMBER NOTED. WONG CATHETER IN PLACE. SAFETY MEASURES IN PLACE. BED LOCKED AND IN LOWEST POSITION WITH SIDE RAILS UP X2. WILL CONTINUE TO MONITOR.
[2021-05-09 08:27] LABS: ABG BASE EXCESS 2.5 mmol/L; ABG OXYGEN SATURATION 92.8 % (92.0-98.5); ABG PCO2 43.8 mmHg (35.0-45.0); ABG PH 7.415 (7.350-7.450); ABG PO2 67.4 mmHg (75.0-100.0); AaDO2 420.8 mmHg; COHb 0.9 % (0.5-1.5); MetHb 0.1 % (0.0-1.5); O2Hb 91.9 % (94.0-97.0); PEEP,BG 12 cm H2O; SITE, ABG Right Radial; VT, ABG 450 mL
[2021-05-09] MEDS: HYDROCHLOROTHIAZIDE 25 MG TABLET GT SCH (08:36)
[2021-05-09] MEDS: CHOLECALCIFEROL 1,000 UNIT TABLET (VIT D3) GT SCH (08:36)
[2021-05-09] MEDS: MELOXICAM 7.5 MG TABLET GT SCH (08:36)
[2021-05-09] MEDS: ZINC SULFATE 220 MG CAPSULE GT SCH (08:37)
[2021-05-09] MEDS: ASPIRIN EC 81 MG TABLET.DR PO SCH (08:37)
[2021-05-09] MEDS: ENOXAPARIN SODIUM 40 MG/0.4 ML DISP.SYRIN SQ SCH ×2 (08:37→21:49)
[2021-05-09] MEDS: DEXAMETHASONE SOD PHOSPHATE 10 MG/ML VIAL IV SCH ×2 (08:37→17:12)
[2021-05-09] MEDS: PANTOPRAZOLE 40 MG/PACK PACK GT SCH (08:37)
[2021-05-09] MEDS: PROSOURCE / PROSTAT (PYXIS) 30 ML UDC GT SCH ×3 (08:37→17:12)
[2021-05-09] MEDS: CLOTRIMAZOLE 1% 15 GM TUBE TP SCH ×2 (08:38→17:12)
[2021-05-09] MEDS: Z GUARD REMEDY 2 OZ OINT TP SCH (08:38)
[2021-05-09] MEDS: FENTANYL CITRATE/PF 2,500 MCG in IV NS 0.9% 200 ML IV PRN ×2 (08:54→21:47)
[2021-05-09] MEDS: MIDAZOLAM HCL 100 MG in IV NS 0.9% 80 ML IV PRN ×2 (08:54→21:48)
[2021-05-09] MEDS: IV NS 0.9% 1,000 ML IV PRN (15:34)
--- NOTE | 2021-05-09 17:21 | NUR ---
RT Pt received orally intubated on mechanical ventilation with noted settings. Vent is plugged into red outlet. FiO2 titrated to 65% but pt was unable to tolerate, pt was increased to 80% to maintain adequate SpO2. No SOB or respiratory distress noted at this time. Addendum: 05/09/21 at 1733 by PABLO SHANNON RT Amended: Links added.
--- NOTE | 2021-05-09 18:50 | NUR ---
RN CLOSING NOTES PT REMAINS SEDATED. [facility] VENT SETTINGS OF AC: 24, TV: 450, FIO2: 80%, PEEP: 12. NGT IN PLACE. JEVITY @45 ML/HR, 10ML RESIDUAL. CHEST TUBE INTACT AND DRAINED 20ML. ALL DUE MEDS GIVEN. KEPT CLEAN AND COMFORTABLE. SAFETY MEASURES IN PLACE. WILL ENDORSE TO NIGHT RN FOR MYRNA.
[2021-05-09] MEDS: MELATONIN 5 MG PO SCH (21:51)
--- NOTE | 2021-05-09 23:50 | NUR ---
PATIENT SEDATED ON VERSED 6 MG, FENTANYL 200 MCG ,NS 40 HR. HAS LEFT UPPER PIC LINE AND A RIGHT UPPER CHEST PORTAL CATH. PATIENT ON MONITOR SINUS TACH 119 HEART RATE. HAS GT INFUSING AT 50 HOUR JEVITY. PATIENT C/O OF GENERAL PAIN MEDIATED WITH DILAUDID 0.5 MG IVP 2307. BLOOD SUGAR HS WAS 163 PATIENT REFUSE INSULIN MEDICATION. TEMP 98 PATIENT ON HIGH FLOW 90%. PATIENT INCONTINENT OF URINE HAS DIAPER ON PATIENT CAN,T MOVE LEFT ARM NO ACUTE RESP. DISTRESS. Addendum: 05/10/21 at 0003 by REGISTRY [facility] INPATIENT RN1 RN CHARTED WRONG NOTES ON PATIENT SOME OF NOTES WERE RIGHT AND SOME WAS ON ANOTHER PATIENT. WILL CORRECT MY NOTES NOW.
[2021-05-10] VITALS (33 sets, daily range): BP systolic 102–150; BP diastolic 52–88
--- NOTE | 2021-05-10 00:04 | NUR ---
PATIENT IS SEDATED ON VERSED 6 MG AND FENTANYL 200 MCG . NS 40 HOUR. PATIENT HAS A LEFT UPPER PICC LINE. PATIENT HAS ET-TUBE AC,24, TV450,FI02 80% PEEP 12 SAT 99% ON MONITOR SINUS MADELAINE. TEMP 99.5 LUNGS DIMINISH TO LISTEN SUCTION SMALL SECRETIONS.PATIENT HAS RIGHT SIDE CHEST TUBE NO LEAKING HEARD DRAINING SMALL SECRETIONS REDDISH DONG IN COLOR DRAIN MED CLAMPS AT BED SIDE. PATIENT HAS NGT AT 2030 HAD 150CC RESIDUAL OUT HELD FEEDING FOR HOUR RESUMED FEEDING HUNG NEW FEEDIING AT 2130 INFUSING AT 45 HR. PATIENT HAS F/C DRAINING SMALL URINE. NO ACUTE RESPIRTORY DISTRESS AT THIS TIME.
[2021-05-10] MEDS: FLUDROCORTISONE 0.1 MG TABLET NG SCH ×4 (00:21→17:56)
[2021-05-10] MEDS: CEFEPIME 2 GM in IV D5W 100 ML IV SCH (04:21)
[2021-05-10 04:32] LABS: BASOPHILS % (AUTO) 0.4 % (0.0-2.0); EOSINOPHILS % (AUTO) 0.3 % (0.0-6.0); HEMATOCRIT 31 % (33-45); HEMOGLOBIN 10.3 g/dL (11.5-14.8); LYMPHOCYTES # (AUTO) 0.3 K/uL (0.8-4.8); LYMPHOCYTES % (AUTO) 3.9 % (20.0-44.0); MEAN CORPUSCULAR HGB CONC 33 g/dl (31.0-36.0); MEAN CORPUSCULAR VOLUME 81 fL (82-100); MONOCYTES # (AUTO) 0.2 K/uL (0.1-1.30); NEUTROPHILS # (AUTO) 6.8 K/uL (1.8-8.9); NEUTROPHILS % (AUTO) 92.4 % (43.0-81.0); PLATELET COUNT (AUTO) 119 K/uL (150-450); RED BLOOD CELL COUNT(AUTO) 3.84 MIL/uL (4.0-5.2); WHITE BLOOD COUNT (AUTO) 7.3 K/uL (4.3-11.0)
[2021-05-10] MEDS: HYDROCORTISONE SOD SUCCINATE 100 MG/2 ML VIAL IV SCH ×3 (04:41→22:10)
[2021-05-10 04:46] LABS: CALCIUM, SERUM 7.7 mg/dL (8.5-10.1); CREATININE 0.4 mg/dL (0.6-1.3); MAGNESIUM 2.2 mg/dL (1.8-2.4); POTASSIUM 3.8 mmol/L (3.5-5.1)
--- NOTE | 2021-05-10 07:01 | NUR ---
patient did not get melatonin on sedations.
[2021-05-10 07:58] LABS: ABG BASE EXCESS 2.1 mmol/L; ABG OXYGEN SATURATION 94.8 % (92.0-98.5); ABG PCO2 46.6 mmHg (35.0-45.0); ABG PH 7.389 (7.350-7.450); ABG PO2 72.8 mmHg (75.0-100.0); AaDO2 593.6 mmHg; COHb 0.9 % (0.5-1.5); MetHb 0.1 % (0.0-1.5); O2Hb 93.9 % (94.0-97.0); PEEP,BG 12 cm H2O; SITE, ABG Left Radial; VT, ABG 450 mL
[2021-05-10] MEDS ORDERED: FUROSEMIDE 20 MG/2 ML VIAL IV ONE (09:00)
[2021-05-10] MEDS: CLOTRIMAZOLE 1% 15 GM TUBE TP SCH ×2 (09:18→17:57)
[2021-05-10] MEDS: Z GUARD REMEDY 2 OZ OINT TP SCH (09:18)
[2021-05-10] MEDS: PANTOPRAZOLE 40 MG/PACK PACK GT SCH (09:25)
[2021-05-10] MEDS: MELOXICAM 7.5 MG TABLET GT SCH (09:25)
[2021-05-10] MEDS: ZINC SULFATE 220 MG CAPSULE GT SCH (09:25)
[2021-05-10] MEDS: CHOLECALCIFEROL 1,000 UNIT TABLET (VIT D3) GT SCH (09:26)
[2021-05-10] MEDS: HYDROCHLOROTHIAZIDE 25 MG TABLET GT SCH (09:26)
[2021-05-10] MEDS: ASPIRIN EC 81 MG TABLET.DR PO SCH (09:27)
[2021-05-10] MEDS: DEXAMETHASONE SOD PHOSPHATE 10 MG/ML VIAL IV SCH ×2 (09:27→17:56)
[2021-05-10] MEDS: ENOXAPARIN SODIUM 40 MG/0.4 ML DISP.SYRIN SQ SCH ×2 (09:28→22:11)
[2021-05-10] MEDS: LEVOTHYROXINE SODIUM 50 MCG TABLET GT SCH (09:41)
[2021-05-10] MEDS: PROSOURCE / PROSTAT (PYXIS) 30 ML UDC GT SCH ×3 (09:42→17:57)
[2021-05-10] MEDS: FENTANYL CITRATE/PF 2,500 MCG in IV NS 0.9% 200 ML IV PRN ×2 (10:32→23:08)
[2021-05-10] MEDS: MIDAZOLAM HCL 100 MG in IV NS 0.9% 80 ML IV PRN ×2 (13:27→22:17)
[2021-05-10] MEDS: PRECEDEX 400 MCG/100 ML BOTTLE 100 ML IV PRN (18:37)
[2021-05-10] MEDS: IV NS 0.9% 250 ML IV PRN (18:56)
--- NOTE | 2021-05-10 19:54 | NUR ---
VSS with HR remaining 54-65 and maintaining BP WDL without use of pressors. Chest tube drainage minimal 20ml on dayshift. Good UOP. Report given to nightshift YENI.
--- NOTE | 2021-05-10 19:59 | NUR ---
curriculum manager. initial assessment. received the pt rest on the bed. orally intubated. ett 7.7, ac 24, tv 450,fio2 85%, peep 14. sat 97%. telemetry monitor showing nsr. iv lt upper arm picc line, fentanyl 200mcg/kg/min, versed 7 mcg, precedex 0.2mcg/kg/min,fc patent. ngt intact. jevity 45 ml/h, cvp is at this time 9. kenyatta soft wrist restraint checked and released, no injury or redness noted. hob elevated, will continue to monitor vitals.
[2021-05-10] MEDS: MELATONIN 5 MG PO SCH (22:00)
--- NOTE | 2021-05-10 23:22 | NUR ---
melatonin not given. pt sedated with versed, fentanyl and precedex
--- NOTE | 2021-05-10 23:23 | NUR ---
curriculum development specialist.residual 300ml. hold the feeding.
[2021-05-11] VITALS (34 sets, daily range): BP systolic 90–164; BP diastolic 51–95
[2021-05-11] MEDS: FLUDROCORTISONE 0.1 MG TABLET NG SCH ×4 (00:27→17:59)
[2021-05-11] MEDS: PRECEDEX 400 MCG/100 ML BOTTLE 100 ML IV PRN ×2 (03:23→15:45)
[2021-05-11 05:13] LABS: BASOPHILS % (AUTO) 0.1 % (0.0-2.0); EOSINOPHILS % (AUTO) 0.5 % (0.0-6.0); HEMATOCRIT 30 % (33-45); LYMPHOCYTES # (AUTO) 0.2 K/uL (0.8-4.8); LYMPHOCYTES % (AUTO) 2.3 % (20.0-44.0); MEAN CORPUSCULAR HGB CONC 34 g/dl (31.0-36.0); MEAN CORPUSCULAR VOLUME 80 fL (82-100); MONOCYTES # (AUTO) 0.3 K/uL (0.1-1.30); MONOCYTES % (AUTO) 4.2 % (2.0-12.0); NEUTROPHILS # (AUTO) 6.9 K/uL (1.8-8.9); NEUTROPHILS % (AUTO) 92.9 % (43.0-81.0); PLATELET COUNT (AUTO) 120 K/uL (150-450); RED BLOOD CELL COUNT(AUTO) 3.71 MIL/uL (4.0-5.2); WHITE BLOOD COUNT (AUTO) 7.4 K/uL (4.3-11.0)
[2021-05-11 05:22] LABS: CALCIUM, SERUM 7.5 mg/dL (8.5-10.1); CREATININE 0.6 mg/dL (0.6-1.3); MAGNESIUM 2.3 mg/dL (1.8-2.4); POTASSIUM 3.2 mmol/L (3.5-5.1)
--- NOTE | 2021-05-11 05:22 | NUR ---
manager multicultural, am care given. remaining same vent settings on. gt feeding resumed.iv lt upper arm picc line.remaining same dose fentanyl,versed and precedex running. fc patent.urine draining.hob elevated. turn and reposition q2h. will continue to monitor. vitals.
[2021-05-11] MEDS: HYDROCORTISONE SOD SUCCINATE 100 MG/2 ML VIAL IV SCH ×2 (06:10→18:03)
[2021-05-11 08:20] LABS: ABG BASE EXCESS 7.6 mmol/L; ABG OXYGEN SATURATION 93.4 % (92.0-98.5); AaDO2 501.6 mmHg; COHb 0.6 % (0.5-1.5); MetHb 0.2 % (0.0-1.5); O2Hb 92.7 % (94.0-97.0); PEEP,BG 14 cm H2O; SITE, ABG Right Radial; VT, ABG 450 mL
[2021-05-11] MEDS: DEXAMETHASONE SOD PHOSPHATE 10 MG/ML VIAL IV SCH ×2 (08:32→17:58)
[2021-05-11] MEDS: CHOLECALCIFEROL 1,000 UNIT TABLET (VIT D3) GT SCH (08:32)
[2021-05-11] MEDS: HYDROCHLOROTHIAZIDE 25 MG TABLET GT SCH (08:34)
[2021-05-11] MEDS: LEVOTHYROXINE SODIUM 50 MCG TABLET GT SCH (08:35)
[2021-05-11] MEDS: ZINC SULFATE 220 MG CAPSULE GT SCH (08:35)
[2021-05-11] MEDS: PANTOPRAZOLE 40 MG/PACK PACK GT SCH (08:35)
[2021-05-11] MEDS: MELOXICAM 7.5 MG TABLET GT SCH (08:35)
[2021-05-11] MEDS: ASPIRIN EC 81 MG TABLET.DR PO SCH (08:35)
[2021-05-11] MEDS: PROSOURCE / PROSTAT (PYXIS) 30 ML UDC GT SCH ×3 (08:36→18:03)
[2021-05-11] MEDS: ENOXAPARIN SODIUM 40 MG/0.4 ML DISP.SYRIN SQ SCH ×2 (08:37→21:23)
[2021-05-11] MEDS: POTASSIUM CL. PREMIX PERIPHER. 50 ML IV SCH ×6 (08:38→14:03)
[2021-05-11] MEDS ORDERED: POTASSIUM CHLORIDE 20 MEQ POWDER PACKET GT SCH (09:00)
[2021-05-11] MEDS: CLOTRIMAZOLE 1% 15 GM TUBE TP SCH ×2 (09:22→17:59)
[2021-05-11] MEDS: Z GUARD REMEDY 2 OZ OINT TP SCH (09:22)
[2021-05-11] MEDS: FENTANYL CITRATE/PF 2,500 MCG in IV NS 0.9% 200 ML IV PRN (10:16)
--- NOTE | 2021-05-11 11:17 | NUR ---
vent changes below as order: VT decrease from 450ml to 400ml. RN notified. Addendum: 05/11/21 at 1118 by NATASHA JANG RT Amended: Links added.
[2021-05-11] MEDS ORDERED: FUROSEMIDE 40 MG/4 ML VIAL IV SCH (11:30)
--- NOTE | 2021-05-11 11:36 | NUR ---
fio2 increase from 85% to 100% due to 83% saturation. rn notified on vent changes. Addendum: 05/11/21 at 1136 by NATASHA JANG RT Amended: Links added.
[2021-05-11] MEDS: MIDAZOLAM HCL 100 MG in IV NS 0.9% 80 ML IV PRN (14:05)
--- NOTE | 2021-05-11 19:52 | NUR ---
Report given to nightshift YENI Fonseca.
--- NOTE | 2021-05-11 20:10 | NUR ---
ICU/HOUSE SHORER PT DURING ASSESSMENT APPEARED TO HAVE BROWNISH LIQUID COMING FROM MOUTH, WHICH WAS ON SHEET. PT CURRENTLY HAS TUBE FEEDING AT 45ML/HR. RESIDUALS WERE CHECKED, WHICH WAS 250ML. FEEDING TURNED OFF. THEN CORK TILE FLOOR LAYER NURSE MADE AWARE OF THIS GAVE REGLAN IV PUSH. WILL CONTINUE TO MONITOR THIS RESIDUALS.
--- NOTE | 2021-05-11 20:10 | NUR ---
ICU/FUNERAL HOME GENERAL MANAGER THIRD APOLINAR SCALE WAS ADDED FOR PRECEDEX. THIS IS NOT AVAILABLE TO BE DOCUMENTED, HOWEVER ON IV SPREAD SHEET IT IS DOCUMENTED. WILL MONITOR THIS PT. FINISHED CLOTH EXAMINER NURSE IS TITRATING PER PT'S NEEDS AND LEVEL OF AGITATION.
[2021-05-11] MEDS: METOCLOPRAMIDE HCL 10 MG/2 ML VIAL IV PRN (20:19)
--- NOTE | 2021-05-11 21:00 | NUR ---
ICU/HAIR DRYER THERE WAS AN ORDER FOR LASIX FOR THIS PT AT 11AM, LOOKED TO SEE IF IT WAS GIVEN. APPEARS THAT IT WAS NOT. NOTIFED ATMOSPHERIC SCIENTIST NURSE. THIS MEDICATION WAS THEN GIVEN A X1 ORDER. PT'S BP IS STABLE AT 160'S. WILL MONITOR THIS PT , ALONG WITH HER URINE OUTPUT.
[2021-05-11] MEDS: MELATONIN 5 MG PO SCH (21:32)
--- NOTE | 2021-05-11 21:32 | NUR ---
ICU/RISK OFFICER HOME MEDS OF MELANOTONIN WAS HELD DUE TO PT IS CURRENTLY INTUBATED AND ON SEDATION. WILL CONTINUE TO MONITOR THIS PT.
--- NOTE | 2021-05-11 21:45 | NUR ---
ICU/DISABILITIES SERVICES OFFICER PT CONTINUES TO APPEAR TO BE AGITATED, BUCKING THE VENT. LOOM CHANGEOVER OPERATOR NURSE MADE AWARE. WAS ABLE TO GO UP ON THE VERSED TO 7MCG/HR FROM 6MCG/HR. WILL CONTINUE TO CLOSELY MONITOR THIS PT.
--- NOTE | 2021-05-11 23:00 | NUR ---
ICU/ADDRESS CHANGE CLERK HAS A VERY LONG TALK WITH DAUGHTER ABOUT CODE STATUS. PT HAS BEEN IN THE ICU SINCE LATE MARCH. PT WAS ON HIGH FLOW PLUS NRB MASK THEN INTUBATED ON 05/01 AND CHEST TUBE ON 05/03 DUE TO INCREASED PEEP. EXPLAIN THE CURRENTLY PT IS MAXED OUT ON VENT SETTINGS, ON 3 SEDATIONS. AND THAT CXR DOESN'T LOOK LIKE THERE IS MUCH IMPROVEMENT. DAUGHTER ROJELIO SAID SHE WISHED FOR PT TO REMAIN FULL CODE. AND SHE WOULD LIKE TO TALK TO DR ESCOBAR WHEN HE IS AVAILABLE.
[2021-05-12] VITALS (43 sets, daily range): BP systolic 104–148; BP diastolic 52–80
[2021-05-12] MEDS: FENTANYL CITRATE/PF 2,500 MCG in IV NS 0.9% 200 ML IV PRN ×3 (00:03→23:54)
[2021-05-12] MEDS: FLUDROCORTISONE 0.1 MG TABLET NG SCH ×5 (00:06→23:39)
--- NOTE | 2021-05-12 00:10 | NUR ---
ICU/OCCUPATIONAL HEALTH NURSE THIRD APOLINAR SCALE WAS ADDED FOR PRECEDEX. THIS IS NOT AVAILABLE TO BE DOCUMENTED, HOWEVER ON IV SPREAD SHEET IT IS DOCUMENTED. WILL MONITOR THIS PT. NET FRONT END DEVELOPER NURSE IS TITRATING PER PT'S NEEDS AND LEVEL OF AGITATION.
--- NOTE | 2021-05-12 00:29 | NUR ---
ICU/POT ROOM TAPPER PLACED A SILVER METAL NECKLESS WITH CROSS IN ICU SAFE.
--- NOTE | 2021-05-12 00:45 | NUR ---
ICU/QUALITY ASSURANCE RESIDUALS FROM THE N/G TUBE WERE AT 200ML. WILL CONTINUE TO MONITOR THIS PT'S RESIDUALS. TUBE FEEDING REMAINS OFF AT THIS TIME.
--- NOTE | 2021-05-12 01:13 | NUR ---
ICU/DRAW FIRE OPERATOR PRECEDEX IS THE THIRD SEDATION TO BE ADDED. EARLY IN SHIFT REPORT WAS GIVEN THAT THIS WAS AT 0.2MCG. HOWEVER PT WAS VERY AGITATED, BUCKING THE VENT, ALONG WITH RESPIRATIONS IN THE 40'S. THIS WAS NOTED AND NOTIFED CHARGE NURSE MADE AWARE. CHARGE NURSE BEGAN TO TITRATE UP ACCORDING TO POLICY TO HELP GET THIS PT PROPERLY SEDATED. BLOOD PRESSURE WAS 160'S. RESPIRATIONS WERE 40'S. SATURATION WAS IN THE LOW 90'S. CURRENTLY THE PRECEDEX IS 0.6MCG/HR. PT APPEARS TO BE COMFORTABLE WITH BP 110'S, RR 30'S, AND HEART RATE 50'S. WILL CONTINUE TO MONITOR THIS PT AND HER VITAL SIGNS.
[2021-05-12] MEDS: PRECEDEX 400 MCG/100 ML BOTTLE 100 ML IV PRN ×2 (02:20→09:54)
[2021-05-12] MEDS: MIDAZOLAM HCL 100 MG in IV NS 0.9% 80 ML IV PRN ×2 (03:28→17:59)
[2021-05-12] MEDS: JEVITY 1.2 CAL 1,000 ML BOTTLE GT PRN ×2 (04:11→14:41)
[2021-05-12] MEDS: IV NS 0.9% 250 ML IV PRN (04:11)
[2021-05-12] MEDS: METOCLOPRAMIDE HCL 10 MG/2 ML VIAL IV PRN ×3 (04:15→19:25)
[2021-05-12] MEDS: HYDROCORTISONE SOD SUCCINATE 100 MG/2 ML VIAL IV SCH ×2 (04:15→16:32)
--- NOTE | 2021-05-12 04:45 | NUR ---
ICU/PUBLIC RELATIONS SENIOR ASSOCIATE PT APPEARS TO BE RESTING COMFORTABLE, DECREASED THE SEDATION BOTH VERSED AND PRECEDEX BY GENERAL NEUROLOGIST NURSE. SEE IV FLOWSHEET FOR ASSESSMENT. WILL CONTINUE TO MONITOR THIS PT ALONG WITH RESPIRATIONS.
--- NOTE | 2021-05-12 05:00 | NUR ---
ICU/ORTHOTIC ASSISTANT PT WAS GIVEN REGLAN AND STARTED THE LEFT N/G TUBE AT 20ML/HR. WILL MONITOR PT'S RESIDUALS.
[2021-05-12 05:13] LABS: CALCIUM, SERUM 7.7 mg/dL (8.5-10.1); CREATININE 0.6 mg/dL (0.6-1.3); MAGNESIUM 2.3 mg/dL (1.8-2.4); POTASSIUM 3.7 mmol/L (3.5-5.1)
[2021-05-12 05:25] LABS: BASOPHILS % (AUTO) 0.1 % (0.0-2.0); EOSINOPHILS % (AUTO) 0.2 % (0.0-6.0); HEMATOCRIT 31 % (33-45); HEMOGLOBIN 10.2 g/dL (11.5-14.8); LYMPHOCYTES # (AUTO) 0.2 K/uL (0.8-4.8); LYMPHOCYTES % (AUTO) 3.4 % (20.0-44.0); MEAN CORPUSCULAR HGB CONC 33 g/dl (31.0-36.0); MEAN CORPUSCULAR VOLUME 80 fL (82-100); MONOCYTES # (AUTO) 0.2 K/uL (0.1-1.30); MONOCYTES % (AUTO) 3.5 % (2.0-12.0); NEUTROPHILS # (AUTO) 5.8 K/uL (1.8-8.9); NEUTROPHILS % (AUTO) 92.8 % (43.0-81.0); PLATELET COUNT (AUTO) 145 K/uL (150-450); RED BLOOD CELL COUNT(AUTO) 3.85 MIL/uL (4.0-5.2); WHITE BLOOD COUNT (AUTO) 6.3 K/uL (4.3-11.0)
--- NOTE | 2021-05-12 06:30 | NUR ---
ICU/FRUIT THINNER MACHINE OPERATOR PT APPEARS TO BE TOLERATING CURRENT IV DRIPS OF SEDATION AT CURRENT RATE. WILL CONTINUE TO MONITOR THIS PT.
--- NOTE | 2021-05-12 07:24 | NUR ---
ICU/PRINCIPAL ACCOUNTS CLERK CHEST TUBE OUTPUT IS 30ML.
--- NOTE | 2021-05-12 07:58 | NUR ---
RT PATIENT REC'D ORALLY INTUBATED ON [facility] VENT PER MD ORDERS TRISTEN WELL. ETT SECURE AND IN PROPER POSITION. VENT SETTINGS AND ALARMS CHECKED + AUDIBLE. AMBU BAG AT [facility]. PATIENT REMAINS SEDATED, IN CRITICAL CONDITION. TITRATE FIO2 IF POSSIBLE. Addendum: 05/14/21 at 1351 by CHIDI DENISE RT Amended: Links added.
--- NOTE | 2021-05-12 08:00 | NUR ---
rn notes received patient ETT /vent FIO2-100%, with sedation. no acute respiratory distress, patient has generalized edema, left PICC line and left midline intact. infusing fentanyl 200mcg/kg/hr, versed 6mg/ml, and Precedex 0.5ml, and tko @10ml/hr. tubing flashed easily . patient has residual on NGT-80ml. running Jevity 20ml. keep HOB elevated , assist turn and reposition q 2 hr. Patton draining via gravity with sediments. chest tube babbling in the water chamber MD's aware of. seen school crossing guard Dr Robles. will monitoring.
[2021-05-12] MEDS ORDERED: FUROSEMIDE 20 MG/2 ML VIAL IV ONE (09:30)
[2021-05-12] MEDS ORDERED: FUROSEMIDE 20 MG/2 ML VIAL IV SCH (09:30)
[2021-05-12] MEDS: POTASSIUM CL. PREMIX PERIPHER. 50 ML IV SCH ×4 (09:36→13:11)
[2021-05-12] MEDS: PANTOPRAZOLE 40 MG/PACK PACK GT SCH (09:36)
[2021-05-12] MEDS: CHOLECALCIFEROL 1,000 UNIT TABLET (VIT D3) GT SCH (09:37)
[2021-05-12] MEDS: ZINC SULFATE 220 MG CAPSULE GT SCH (09:37)
[2021-05-12] MEDS: MELOXICAM 7.5 MG TABLET GT SCH (09:37)
[2021-05-12] MEDS: HYDROCHLOROTHIAZIDE 25 MG TABLET GT SCH (09:37)
[2021-05-12] MEDS: ASPIRIN EC 81 MG TABLET.DR PO SCH (09:38)
[2021-05-12] MEDS: ENOXAPARIN SODIUM 40 MG/0.4 ML DISP.SYRIN SQ SCH ×2 (09:39→21:56)
[2021-05-12] MEDS: DEXAMETHASONE SOD PHOSPHATE 10 MG/ML VIAL IV SCH ×2 (09:40→16:31)
[2021-05-12] MEDS: PROSOURCE / PROSTAT (PYXIS) 30 ML UDC GT SCH ×3 (09:41→16:27)
[2021-05-12] MEDS: CLOTRIMAZOLE 1% 15 GM TUBE TP SCH ×2 (09:42→16:28)
[2021-05-12] MEDS: Z GUARD REMEDY 2 OZ OINT TP SCH (09:42)
[2021-05-12] MEDS: LEVOTHYROXINE SODIUM 50 MCG TABLET GT SCH (09:46)
--- NOTE | 2021-05-12 10:30 | NUR ---
rn notes seen patient via it risk analyst and get new to order recheck triglyceride if level is normal range start Diprivan and titrate max 20mcg/kg/hr and d/c Peridex infusion per protocol because of HR is low.order taken and carried out.
--- NOTE | 2021-05-12 12:19 | NUR ---
rn notes administered Reglan 10ml prn.
[2021-05-12] MEDS ORDERED: DEXTROSE 50%-WATER 50 ML DISP.SYRIN IV PRN (13:30)
[2021-05-12] MEDS: PROPOFOL 10MG/ML 50ML 50 ML IV PRN ×3 (14:41→22:12)
[2021-05-12] MEDS: BLOOD SUGAR DIAGNOSTIC 1 EACH STRIP IN SCH ×2 (17:46→23:57)
[2021-05-12] MEDS: INSULIN REGULAR, HUMAN 100 UNIT/ML 3 ML VIAL SQ PRN (17:51)
--- NOTE | 2021-05-12 18:30 | NUR ---
rn notes BS-251 mg/dl, coverage given, due medication administered, vss, suction, mouth care done. infusing Diprivan 20mcg/kg/hr, fentanyl 200mcg/kg/hr, and versed 6 mg/ml/ hr . running Jevity 20cc. keep hob elevated. assist turn and reposition q 2 hr, rechecked soft restrain bilateral wrists. endorsed oncoming nursed follow plan of care.
--- NOTE | 2021-05-12 19:25 | NUR ---
rn notes administered Reglan 10ml/iv push.
[2021-05-12] MEDS: MELATONIN 5 MG PO SCH (21:56)
[2021-05-13] VITALS (45 sets, daily range): BP systolic 95–139; BP diastolic 48–67
[2021-05-13] MEDS: INSULIN REGULAR, HUMAN 100 UNIT/ML 3 ML VIAL SQ PRN ×4 (00:01→18:02)
[2021-05-13] MEDS: PROPOFOL 10MG/ML 50ML 50 ML IV PRN ×6 (02:20→21:19)
--- NOTE | 2021-05-13 02:29 | NUR ---
PATIENT HAS ET-TUBE 7.5/20 CM AC25, TV,400,FI02 90%, PEEP 14 SAT96%. PATIENT IS SEDATED ON VERSED AT 6 MG, FENTNYL 200 MCG, PROPFOL 20MCG.LUNGS WITH DIMINISH TO LISTEN SMALL AMOUNT OF SECRETIONS WHEN SUCTION. PATIENT HAS LEFT UPPER PICC LINE PATIENT HAS JEVITY INFUSING AT 20CC AT 1999 NO RESIDUAL. AT 0000 50CC RESIUAL JEVITY CONT. 20CC HR. PATIENT HAS CVP LINE AT 1999 WAS 4,AT 0000 WAS 5. PATIENTS TEMP AT 1999 98.3 AT 0000 99.4. ON MONITOR SINUS. HEART RATE 74. PATIENT HAS RIGHT UPPER CHEST TUBE. NO LEAK VERY SMALL DRAINAGE OUT MED CLAMP AT BED SIDE. PATIENT HAS F/C DRAINING DONG COLOR URINE. BLOOD SUGAR 0000 223 GIVEN 4 UNITS REG INSULIN S.Q.NO SIGNS OF RESP. DISTRESS AT THIS TIME.
[2021-05-13 04:39] LABS: BASOPHILS % (AUTO) 0.1 % (0.0-2.0); EOSINOPHILS % (AUTO) 0.1 % (0.0-6.0); HEMATOCRIT 28 % (33-45); HEMOGLOBIN 9.5 g/dL (11.5-14.8); LYMPHOCYTES # (AUTO) 0.3 K/uL (0.8-4.8); LYMPHOCYTES % (AUTO) 4.4 % (20.0-44.0); MEAN CORPUSCULAR HGB CONC 34 g/dl (31.0-36.0); MEAN CORPUSCULAR VOLUME 80 fL (82-100); MONOCYTES # (AUTO) 0.3 K/uL (0.1-1.30); MONOCYTES % (AUTO) 4.7 % (2.0-12.0); NEUTROPHILS # (AUTO) 5.5 K/uL (1.8-8.9); NEUTROPHILS % (AUTO) 90.7 % (43.0-81.0); PLATELET COUNT (AUTO) 162 K/uL (150-450); WHITE BLOOD COUNT (AUTO) 6.1 K/uL (4.3-11.0)
[2021-05-13 04:59] LABS: ALBUMIN 1.6 g/dL (3.4-5.0); BILIRUBIN,TOTAL 0.4 mg/dL (0.2-1.0); CALCIUM, SERUM 7.6 mg/dL (8.5-10.1); CREATININE 0.5 mg/dL (0.6-1.3); MAGNESIUM 2.4 mg/dL (1.8-2.4); PHOSPHORUS 3.3 mg/dL (2.5-4.9); POTASSIUM 2.9 mmol/L (3.5-5.1); TOTAL PROTEIN, SERUM 5.3 g/dL (6.4-8.2)
[2021-05-13] MEDS: HYDROCORTISONE SOD SUCCINATE 100 MG/2 ML VIAL IV SCH ×2 (05:15→17:23)
[2021-05-13] MEDS: FLUDROCORTISONE 0.1 MG TABLET NG SCH ×3 (05:41→17:25)
[2021-05-13] MEDS: BLOOD SUGAR DIAGNOSTIC 1 EACH STRIP IN SCH ×3 (05:54→17:20)
--- NOTE | 2021-05-13 07:08 | NUR ---
patient had 18cc out of plural vac straw color blood sugar 181 given 3 unots of reg. insulin s.q. had 900cc out f/c.
--- NOTE | 2021-05-13 07:52 | NUR ---
RT PATIENT REC'D ORALLY INTUBATED ON [facility] VENT PER MD ORDERS TRISTEN WELL. ETT SECURE AND IN PROPER POSITION. VENT SETTINGS AND ALARMS CHECKED + AUDIBLE. AMBU BAG AT [facility]. PATIENT REMAINS SEDATED, IN CRITICAL CONDITION. TITRATE FIO2 IF POSSIBLE. Addendum: 05/14/21 at 1351 by CHIDI DENISE RT Amended: Links added.
--- NOTE | 2021-05-13 08:00 | NUR ---
RN NOTES Patient ETT /vent FIO2-90%, with sedation. no acute respiratory distress, patient has generalized edema, left PICC line and left midline intact. infusing fentanyl 200mcg/kg/hr, versed 6mg/ml, and Diprivan 20mcg/kg/hr. tubing flashed easily . patient has residual on NGT-80ml. running Jevity 20ml. keep HOB elevated , assist turn and reposition q 2 hr. Patton draining via gravity with sediments. chest tube babbling in the water chamber MD's aware of. will monitoring.
[2021-05-13 08:26] LABS: ABG BASE EXCESS 8.4 mmol/L; ABG OXYGEN SATURATION 97.1 % (92.0-98.5); ABG PCO2 46.4 mmHg (35.0-45.0); ABG PO2 94.2 mmHg (75.0-100.0); AaDO2 499.9 mmHg; COHb 0.1 % (0.5-1.5); SITE, ABG Right Radial
[2021-05-13] MEDS: PANTOPRAZOLE 40 MG/PACK PACK GT SCH (08:51)
[2021-05-13] MEDS: MELOXICAM 7.5 MG TABLET GT SCH (08:52)
[2021-05-13] MEDS: LEVOTHYROXINE SODIUM 50 MCG TABLET GT SCH (08:52)
[2021-05-13] MEDS: CHOLECALCIFEROL 1,000 UNIT TABLET (VIT D3) GT SCH (08:52)
[2021-05-13] MEDS: ASPIRIN EC 81 MG TABLET.DR PO SCH (08:52)
[2021-05-13] MEDS: DEXAMETHASONE SOD PHOSPHATE 10 MG/ML VIAL IV SCH ×2 (08:52→17:23)
[2021-05-13] MEDS: ZINC SULFATE 220 MG CAPSULE GT SCH (08:52)
[2021-05-13] MEDS: ENOXAPARIN SODIUM 40 MG/0.4 ML DISP.SYRIN SQ SCH ×2 (08:53→20:29)
[2021-05-13] MEDS: CLOTRIMAZOLE 1% 15 GM TUBE TP SCH ×2 (08:54→17:20)
[2021-05-13] MEDS: Z GUARD REMEDY 2 OZ OINT TP SCH (08:54)
[2021-05-13] MEDS: HYDROCHLOROTHIAZIDE 25 MG TABLET GT SCH (08:55)
[2021-05-13] MEDS: PROSOURCE / PROSTAT (PYXIS) 30 ML UDC GT SCH ×3 (08:56→17:21)
[2021-05-13] MEDS: MIDAZOLAM HCL 100 MG in IV NS 0.9% 80 ML IV PRN (09:06)
[2021-05-13] MEDS: METOCLOPRAMIDE HCL 10 MG/2 ML VIAL IV PRN (09:12)
[2021-05-13] MEDS: POTASSIUM CHLORIDE 20 MEQ POWDER PACKET GT SCH ×3 (10:08→12:58)
--- NOTE | 2021-05-13 12:00 | NUR ---
RN NOTES BS-194 MG/DL, COVERAGE GIVEN, ASSIST TURN AND REPOSITION, PER DR ESCOBAR GET TO ORDER INCREASE NGT FEEDING 40ML/HR, AND BECAUSE OF PATIENT HAS ORAL BLEEDING , GET ORDER HOLD 2100 LOVENOX INJECTION TONIGHT. ORDER TAKEN AND CARRIED OUT.
[2021-05-13] MEDS: FENTANYL CITRATE/PF 2,500 MCG in IV NS 0.9% 200 ML IV PRN (12:59)
--- NOTE | 2021-05-13 14:00 | NUR ---
RN NOTES TITRATE SEDATION PER PROTOCOL PER Dr ESCOBAR.
[2021-05-13] MEDS: JEVITY 1.2 CAL 1,000 ML BOTTLE GT PRN (17:16)
[2021-05-13] MEDS: METOCLOPRAMIDE HCL 10 MG/2 ML VIAL IV SCH (17:36)
--- NOTE | 2021-05-13 18:00 | NUR ---
RN NOTES BS-144MG/DL COVERAGE GIVEN, DONE ORAL CARE, SUCTION, AND DUE MEDICATION ADMINISTERED, NO OUTPUT ON CHEST TUBE TODAY. INFUSING DIPRIVAN 15MCG/KG/HR, FENTANYL 175MCG/KG/HR, AND VERSED 6 MG/ML ON LEFT PICC LINE. WONG OUTPUT WAS 400ML WITH SEDIMENTS. RECHECKED BILATERAL RESTRAIN CIRCULATION Q2 HR. ASSIST TURN A D REPOSTION Q 2 HR. RUNNING JEVITY 40ML/HR ON NGT INTACT, NO RESIDUAL AT THIS TIME. KEEP HOB ELEVATED. ENDORSED ONCOMING NURSE FOLLOW PLAN OF CARE.
--- NOTE | 2021-05-13 20:17 | NUR ---
RN NOTE PATIENT ETT/VENT FIO2-80%, SEDATED. NO ACUTE RESPIRATORY DISTRESS NOTED. HEAD OF BED ELEVATED. WITH NGT RUNNING JEVITY @ 40ML/HR WITH RESIDUAL 80 ML NOTED. WONG CATH PATENT AND INTACT, DRAINING YELLOW URINE VIA GRAVITY. WITH LEFT UPPER ARM PICC LINE AND LEFT MIDLINE UPPER ARM INFUSING FENTANYL 175MCG/KG/HR, VERSED 6MG/ML/ AND DIPRIVAN 15MC/KG/HR, TUBING FLUSHED ASEPTICALLY. RIGHT CHEST TUBE NOTED BUBBLING IN WATER CHAMBER(MD AWARE). BED LOCKED AND IN LOWEST POSITION. SAFETY MEASURES MAINTAINED.
--- NOTE | 2021-05-13 20:30 | NUR ---
WITH MINIMAL ORAL BLEEDING, LOVENOX [address] HELD TONIGHT PER DR. ESCOBAR.
[2021-05-13] MEDS: MELATONIN 5 MG PO SCH (21:44)
--- NOTE | 2021-05-13 21:46 | NUR ---
MELATONIN HELD DUE TO PATIENT IS INTUBATED AND SEDATED.
[2021-05-14] VITALS (45 sets, daily range): BP systolic 102–147; BP diastolic 54–82
[2021-05-14] MEDS: METOCLOPRAMIDE HCL 10 MG/2 ML VIAL IV SCH ×5 (00:50→23:31)
[2021-05-14] MEDS: FLUDROCORTISONE 0.1 MG TABLET NG SCH ×4 (00:51→17:04)
[2021-05-14] MEDS: BLOOD SUGAR DIAGNOSTIC 1 EACH STRIP IN SCH ×4 (00:56→18:19)
[2021-05-14] MEDS: INSULIN REGULAR, HUMAN 100 UNIT/ML 3 ML VIAL SQ PRN ×3 (00:59→18:19)
[2021-05-14] MEDS: FENTANYL CITRATE/PF 2,500 MCG in IV NS 0.9% 200 ML IV PRN ×3 (01:20→23:29)
[2021-05-14] MEDS: MIDAZOLAM HCL 100 MG in IV NS 0.9% 80 ML IV PRN ×2 (02:01→17:02)
[2021-05-14] MEDS: PROPOFOL 10MG/ML 50ML 50 ML IV PRN ×5 (02:03→19:34)
[2021-05-14 04:31] LABS: EOSINOPHILS % (AUTO) 0.3 % (0.0-6.0); HEMOGLOBIN 9.9 g/dL (11.5-14.8); LYMPHOCYTES # (AUTO) 0.3 K/uL (0.8-4.8); LYMPHOCYTES % (AUTO) 4.4 % (20.0-44.0); MEAN CORPUSCULAR HGB CONC 33 g/dl (31.0-36.0); MONOCYTES # (AUTO) 0.2 K/uL (0.1-1.30); MONOCYTES % (AUTO) 3.4 % (2.0-12.0)
[2021-05-14 04:39] LABS: CALCIUM, SERUM 7.7 mg/dL (8.5-10.1); CREATININE 0.5 mg/dL (0.6-1.3); MAGNESIUM 2.4 mg/dL (1.8-2.4); PHOSPHORUS 2.9 mg/dL (2.5-4.9); POTASSIUM 3.9 mmol/L (3.5-5.1)
[2021-05-14 04:54] LABS: BASOPHILS % (AUTO) 0.2 % (0.0-2.0); HEMATOCRIT 30 % (33-45); MEAN CORPUSCULAR VOLUME 81 fL (82-100); NEUTROPHILS # (AUTO) 5.6 K/uL (1.8-8.9); NEUTROPHILS % (AUTO) 91.7 % (43.0-81.0); PLATELET COUNT (AUTO) 164 K/uL (150-450); RED BLOOD CELL COUNT(AUTO) 3.69 MIL/uL (4.0-5.2); WHITE BLOOD COUNT (AUTO) 6.1 K/uL (4.3-11.0)
[2021-05-14] MEDS: HYDROCORTISONE SOD SUCCINATE 100 MG/2 ML VIAL IV SCH ×2 (06:02→16:57)
--- NOTE | 2021-05-14 07:29 | NUR ---
RN NOTE PATIENT ETT/VENT FIO2-80%, SEDATED. HEAD OF BED ELEVATED. WITH NGT RUNNING JEVITY @ 40ML/HR WITH RESIDUAL 20 ML NOTED. WONG CATH PATENT AND INTACT, DRAINING YELLOW URINE VIA GRAVITY OUTPUT 400CC. WITH LEFT UPPER ARM PICC LINE AND LEFT MIDLINE UPPER ARM INFUSING FENTANYL 175MCG/KG/HR, VERSED 6MG/ML/ AND DIPRIVAN 15MC/KG/HR, NO SIGNS OF INFILTRATION. RIGHT CHEST TUBE NOTED BUBBLING IN WATER CHAMBER(MD AWARE) OUTPUT 40CC. BED LOCKED AND IN LOWEST POSITION. SAFETY MEASURES MAINTAINED. ENDORSED TO AM SHIFT.
--- NOTE | 2021-05-14 07:30 | NUR ---
QUALITY ASSURANCE ASSISTANT OPENING NOTES Patient is sedated and on mechanical vent settings of 400, fi02 of 80% and peep of 14. Patient is on ng tube feeding via left nare. f.c intact and hanging to gravity with clear yellow urine. BOBBI picc line and BOBBI mid line noted, patent and flushed well. On versed 6 mg/hour, fentanyl drip running 175 mcg/hour and propofol running at 15mcg/kg/min. Bilateral wrist restraints noted and circulation checked. Chest tube noted to right side. Per report patient's chest tube is leaking and md aware. Will continue to monitor. Call light with in reach. Bed is in lowest and locked position.
--- NOTE | 2021-05-14 07:58 | NUR ---
RT PATIENT REC'D ORALLY INTUBATED ON [facility] VENT PER MD ORDERS TRISTEN WELL. ETT SECURE AND IN PROPER POSITION. VENT SETTINGS AND ALARMS CHECKED + AUDIBLE. AMBU BAG AT [facility]. PATIENT REMAINS SEDATED, IN CRITICAL CONDITION. TITRATE FIO2 IF POSSIBLE. Addendum: 05/14/21 at 1351 by CHIDI DENISE RT Amended: Links added.
[2021-05-14] MEDS: CHOLECALCIFEROL 1,000 UNIT TABLET (VIT D3) GT SCH (08:39)
[2021-05-14] MEDS: MELOXICAM 7.5 MG TABLET GT SCH (08:39)
[2021-05-14] MEDS: DEXAMETHASONE SOD PHOSPHATE 10 MG/ML VIAL IV SCH ×2 (08:39→17:03)
[2021-05-14] MEDS: ASPIRIN EC 81 MG TABLET.DR PO SCH (08:39)
[2021-05-14] MEDS: ZINC SULFATE 220 MG CAPSULE GT SCH (08:39)
[2021-05-14] MEDS: PROSOURCE / PROSTAT (PYXIS) 30 ML UDC GT SCH ×3 (08:39→16:57)
[2021-05-14] MEDS: PANTOPRAZOLE 40 MG/PACK PACK GT SCH (08:40)
[2021-05-14] MEDS: ENOXAPARIN SODIUM 40 MG/0.4 ML DISP.SYRIN SQ SCH ×2 (08:49→21:29)
[2021-05-14] MEDS: LEVOTHYROXINE SODIUM 50 MCG TABLET GT SCH (08:49)
[2021-05-14] MEDS: CLOTRIMAZOLE 1% 15 GM TUBE TP SCH ×2 (09:00→16:57)
[2021-05-14] MEDS: Z GUARD REMEDY 2 OZ OINT TP SCH (09:00)
--- NOTE | 2021-05-14 10:00 | NUR ---
Patient's fi 02 setting changed from 80 % to 70 %. Will continue to monitor.
--- NOTE | 2021-05-14 11:37 | NUR ---
RT PER DR ESCOBAR DAILY ABG CANCELLED, NO VENT CHANGES HAVE BEEN MADE.
[2021-05-14] MEDS: JEVITY 1.2 CAL 1,000 ML BOTTLE GT PRN (19:05)
--- NOTE | 2021-05-14 19:53 | NUR ---
CLOTH DYE RANGE OPERATOR CLOSING NOTES Patient is sedated and on mechanical vent settings of 400, fi02 of 80% and peep of 14. Patient is on ng tube feeding via left nare with no residual noted during shift. f.c intact and hanging to gravity with clear yellow urine with output of 350 cc. BOBBI picc line and BOBBI mid line noted, patent and flushed well. On versed 6 mg/hour, fentanyl drip running 200 mcg/hour and propofol running at 15mcg/kg/min. Bilateral wrist restraints noted and circulation checked. Chest tube noted to right side with output of 40 cc during shift. Will continue to monitor. Call light with in reach. Bed is in lowest and locked position. Report given to oncoming shift RN.
[2021-05-14] MEDS: MELATONIN 5 MG PO SCH (21:30)
--- NOTE | 2021-05-14 21:32 | NUR ---
ICU/DENTAL FRONT OFFICE ASSISTANT HOME MEDS OF MELANOTONIN WAS HELD DUE TO PT IS CURRENTLY INTUBATED AND ON SEDATION. WILL CONTINUE TO MONITOR THIS PT.
[2021-05-14] MEDS: PROPOFOL 100 ML IV PRN (23:31)
[2021-05-15] VITALS (43 sets, daily range): BP systolic 99–153; BP diastolic 50–79
[2021-05-15] MEDS: BLOOD SUGAR DIAGNOSTIC 1 EACH STRIP IN SCH ×4 (00:02→17:08)
[2021-05-15] MEDS: FLUDROCORTISONE 0.1 MG TABLET NG SCH ×4 (00:02→17:08)
[2021-05-15] MEDS: INSULIN REGULAR, HUMAN 100 UNIT/ML 3 ML VIAL SQ PRN ×4 (00:04→17:06)
--- NOTE | 2021-05-15 00:05 | NUR ---
ICU/HUMAN SERVICE TECHNICIAN PT HAS HIGH RESIDUALS, DECREASED THE FEEDING TO 20ML FROM 40. WILL CONTINUE TO MONITOR THIS PT'S RESIDUALS.
--- NOTE | 2021-05-15 03:00 | NUR ---
ICU/LABORER HIGH DENSITY PRESS SPOKE WITH DAUGHTER AND GAVE UPDATES ON PT'S STATUS.
[2021-05-15 05:18] LABS: BASOPHILS % (AUTO) 0.2 % (0.0-2.0); EOSINOPHILS % (AUTO) 3.7 % (0.0-6.0); HEMATOCRIT 29 % (33-45); HEMOGLOBIN 9.6 g/dL (11.5-14.8); LYMPHOCYTES # (AUTO) 0.4 K/uL (0.8-4.8); LYMPHOCYTES % (AUTO) 9.6 % (20.0-44.0); MEAN CORPUSCULAR HGB CONC 33 g/dl (31.0-36.0); MEAN CORPUSCULAR VOLUME 81 fL (82-100); MONOCYTES # (AUTO) 0.1 K/uL (0.1-1.30); MONOCYTES % (AUTO) 2.5 % (2.0-12.0); NEUTROPHILS # (AUTO) 3.9 K/uL (1.8-8.9); PLATELET COUNT (AUTO) 118 K/uL (150-450); RED BLOOD CELL COUNT(AUTO) 3.58 MIL/uL (4.0-5.2); WHITE BLOOD COUNT (AUTO) 4.6 K/uL (4.3-11.0)
[2021-05-15 05:33] LABS: ALBUMIN 1.6 g/dL (3.4-5.0); BILIRUBIN,TOTAL 0.3 mg/dL (0.2-1.0); CALCIUM, SERUM 7.6 mg/dL (8.5-10.1); CREATININE 0.4 mg/dL (0.6-1.3); MAGNESIUM 2.4 mg/dL (1.8-2.4); PHOSPHORUS 2.9 mg/dL (2.5-4.9); POTASSIUM 3.9 mmol/L (3.5-5.1); TOTAL PROTEIN, SERUM 5.3 g/dL (6.4-8.2)
[2021-05-15] MEDS: HYDROCORTISONE SOD SUCCINATE 100 MG/2 ML VIAL IV SCH ×2 (05:36→16:07)
[2021-05-15] MEDS: METOCLOPRAMIDE HCL 10 MG/2 ML VIAL IV SCH ×3 (05:36→17:08)
[2021-05-15] MEDS: PROPOFOL 100 ML IV PRN ×3 (05:36→23:08)
--- NOTE | 2021-05-15 07:25 | NUR ---
RN NOTES RECEIVED PATIENT SEDATED AND ORALLY INTUBATED WITH MECHVENT SETTINGS AC 24 TV 400 FIO2 80% PEEP 14. SR/SB ON BEDSIDE MONITOR. LEFT NG TUBE WITH JEVITY AT 20ML/HR. WONG DRAINING BY GRAVITY. BOBBI PICC AND BOBBI ML IN PLACE. FENTANYL AT 200MCG, VERSED AT 6MG, AND DIPRIVAN AND 15MCG. CHEST TUBE AIR BUBBLING, AWARE. SAFETY CHECKS IN PLACE. WILL CONTINUE TO MONITOR.
[2021-05-15] MEDS: ZINC SULFATE 220 MG CAPSULE GT SCH (08:14)
[2021-05-15] MEDS: LEVOTHYROXINE SODIUM 50 MCG TABLET GT SCH (08:14)
[2021-05-15] MEDS: PANTOPRAZOLE 40 MG/PACK PACK GT SCH (08:14)
[2021-05-15] MEDS: ASPIRIN EC 81 MG TABLET.DR PO SCH (08:14)
[2021-05-15] MEDS: CHOLECALCIFEROL 1,000 UNIT TABLET (VIT D3) GT SCH (08:14)
[2021-05-15] MEDS: MELOXICAM 7.5 MG TABLET GT SCH (08:15)
[2021-05-15] MEDS: DEXAMETHASONE SOD PHOSPHATE 10 MG/ML VIAL IV SCH ×2 (08:15→16:07)
[2021-05-15] MEDS: PROSOURCE / PROSTAT (PYXIS) 30 ML UDC GT SCH ×3 (08:16→16:07)
[2021-05-15] MEDS: ENOXAPARIN SODIUM 40 MG/0.4 ML DISP.SYRIN SQ SCH ×2 (08:16→22:21)
[2021-05-15] MEDS: CLOTRIMAZOLE 1% 15 GM TUBE TP SCH ×2 (08:17→16:10)
[2021-05-15] MEDS: Z GUARD REMEDY 2 OZ OINT TP SCH (08:18)
[2021-05-15 08:52] LABS: ABG BASE EXCESS 7.6 mmol/L; ABG OXYGEN SATURATION 92.2 % (92.0-98.5); ABG PCO2 49.4 mmHg (35.0-45.0); ABG PO2 62.6 mmHg (75.0-100.0); AaDO2 455.9 mmHg; COHb 0.4 % (0.5-1.5); MetHb 0.3 % (0.0-1.5); O2Hb 91.6 % (94.0-97.0); PEEP,BG 14 cm H2O; SITE, ABG Right Radial; VT, ABG 400 mL
[2021-05-15] MEDS ORDERED: FUROSEMIDE 40 MG/4 ML VIAL IV SCH (09:00)
[2021-05-15] MEDS ORDERED: POTASSIUM CHLORIDE 20 MEQ POWDER PACKET NG SCH (09:00)
[2021-05-15] MEDS: MIDAZOLAM HCL 100 MG in IV NS 0.9% 80 ML IV PRN ×2 (09:10→23:16)
--- NOTE | 2021-05-15 11:00 | NUR ---
RN NOTE NO WRITTEN DOCUMENTATION OF ANY BOWEL MOVEMENT FOR APPROXIMATELY [address] NOTIFIED. BD MIRALAX AND KUB WAS ORDERED.
[2021-05-15] MEDS: FENTANYL CITRATE/PF 2,500 MCG in IV NS 0.9% 200 ML IV PRN ×2 (11:58→21:33)
--- NOTE | 2021-05-15 14:45 | NUR ---
RN NOTE BED BATH DONE THEN PATIENT WAS PLACED ON A 1ST STEP MATTRESS.
[2021-05-15] MEDS: POLYETHYLENE GLYCOL 3350 17 GM POWD.PACK PO SCH (16:09)
--- NOTE | 2021-05-15 18:30 | NUR ---
RN NOTES PATIENT REMAINS SEDATED AND ORALLY INTUBATED WITH MECHVENT SETTINGS AC 24 TV 400 FIO2 80% PEEP 14. SB ON BEDSIDE MONITOR. LEFT NG TUBE WITH JEVITY AT 30ML/HR. WONG DRAINED 1,100MLS BY GRAVITY. BOBBI PICC AND BOBBI ML IN PLACE. FENTANYL AT 200MCG, VERSED AT 6MG, AND DIPRIVAN AND 15MCG. CHEST TUBE TO SUCTION. SAFETY CHECKS IN PLACE. WILL ENDORSE TO NIGHT RN FOR CONTINUITY OF CARE.
--- NOTE | 2021-05-15 20:00 | NUR ---
RN NOTE RECEIVED PT , [facility]UBATED [facility], SEDATED, PT ON VERSED AT 6MG/HR, DIPRIVAN AT 15 MCG/KG/MIN AND FENTANYL AT 200MCG/HR. NO S/SX OF DISTRESS NOTED. SINUS BRADYCARDIA ON TELE MONITOR WITH HR OF 57. NG TUBE IN PLACE AND PATENT, ON JEVITY FEEDING AT 30ML/HR. MINIMAL RESIDUALS WERE NOTED. KEPT HOB ELEVATED. PT WITH CHEST TUBE. WONG DRAINING CLEAR YELLOW URINE. ALL SAFETY MEASURES IN PLACE PER PROTOCOL. WILL CONTINUE TO MONITOR.
--- NOTE | 2021-05-15 21:27 | NUR ---
rn note held melatonin, pt on mechvent and sedated.
[2021-05-15] MEDS: MELATONIN 5 MG PO SCH (22:00)
[2021-05-16] VITALS (37 sets, daily range): BP systolic 95–144; BP diastolic 53–89
[2021-05-16] MEDS: METOCLOPRAMIDE HCL 10 MG/2 ML VIAL IV SCH ×5 (00:20→23:14)
[2021-05-16] MEDS: FLUDROCORTISONE 0.1 MG TABLET NG SCH ×5 (00:20→23:14)
[2021-05-16] MEDS: INSULIN REGULAR, HUMAN 100 UNIT/ML 3 ML VIAL SQ PRN ×4 (00:35→18:15)
[2021-05-16] MEDS: BLOOD SUGAR DIAGNOSTIC 1 EACH STRIP IN SCH ×5 (00:35→23:14)
[2021-05-16] MEDS: HYDROCORTISONE SOD SUCCINATE 100 MG/2 ML VIAL IV SCH ×2 (05:33→11:34)
[2021-05-16] MEDS: PROPOFOL 100 ML IV PRN ×3 (06:12→18:41)
--- NOTE | 2021-05-16 07:15 | NUR ---
RN NOTE PT REMAIN SEDATED, TOLERATING VENT SETTING WITH O2 SAT AT 91-95%. NO S/SX OF DISTRESS NOTED. NGT REMAIN PATENT AND IN PLACE, TOLERATING FEEDING, NO RESIDUALS WERE NOTED, INCREASED RATE TO 45ML/HR. KEPT HOB ELEVATED AT ALL TIMES, NO SIGNS OF ASPIRATION NOTED. PT CONTINUE WITH VERSED 6MG/HR, FENTANYL 200MCG/HR AND PROPOFOL 15MCG/KG/MIN, MIDLINE AND PICC LINE ON BOBBI REMAIN PATENT AND INTACT, DRESSING CHANGED. CHEST TUBE INTACT NO OUTPUT WERE NOTED. WONG INDWELLING WELL. ALL SAFETY MAINTAINED. ENDORSED TO NEXT SHIFT NURSE FOR MYRNA.
[2021-05-16] MEDS: LEVOTHYROXINE SODIUM 50 MCG TABLET GT SCH (07:30)
--- NOTE | 2021-05-16 07:30 | NUR ---
DISMANTLER OPENING NOTES Patient is sedated and on mechanical vent settings of 400, fi02 of 80% and peep of 14. Patient is on ng tube feeding via left nare. f.c intact and hanging to gravity with clear yellow urine. BOBBI picc line and BOBBI mid line noted, patent and flushed well. On versed 6 mg/hour, fentanyl drip running 175 mcg/hour and propofol running at 15mcg/kg/min. Bilateral wrist restraints noted and circulation checked. Chest tube noted to right side. Will continue to monitor. Call light with in reach. Bed is in lowest and locked position.
--- NOTE | 2021-05-16 08:49 | NUR ---
decrease fio2 from 80% to 70% per dr. trejo Addendum: 05/16/21 at 0850 by NATASHA JANG RT Amended: Links added.
[2021-05-16] MEDS: PANTOPRAZOLE 40 MG/PACK PACK GT SCH (09:13)
[2021-05-16] MEDS: ASPIRIN EC 81 MG TABLET.DR PO SCH (09:13)
[2021-05-16] MEDS: DEXAMETHASONE SOD PHOSPHATE 10 MG/ML VIAL IV SCH ×2 (09:13→18:00)
[2021-05-16] MEDS: MELOXICAM 7.5 MG TABLET GT SCH (09:13)
[2021-05-16] MEDS: CHOLECALCIFEROL 1,000 UNIT TABLET (VIT D3) GT SCH (09:13)
[2021-05-16] MEDS: POLYETHYLENE GLYCOL 3350 17 GM POWD.PACK PO SCH ×2 (09:13→16:42)
[2021-05-16] MEDS: ZINC SULFATE 220 MG CAPSULE GT SCH (09:13)
[2021-05-16] MEDS: FENTANYL CITRATE/PF 2,500 MCG in IV NS 0.9% 200 ML IV PRN ×2 (09:14→21:13)
--- NOTE | 2021-05-16 09:14 | NUR ---
switch back to 80% fio2 due to 82% fio2. Addendum: 05/16/21 at 0915 by NATASHA JANG RT Amended: Links added.
[2021-05-16] MEDS: ENOXAPARIN SODIUM 40 MG/0.4 ML DISP.SYRIN SQ SCH ×2 (09:26→21:11)
[2021-05-16] MEDS: PROSOURCE / PROSTAT (PYXIS) 30 ML UDC GT SCH ×3 (09:53→16:42)
[2021-05-16] MEDS: CLOTRIMAZOLE 1% 15 GM TUBE TP SCH ×2 (09:53→16:43)
[2021-05-16] MEDS: Z GUARD REMEDY 2 OZ OINT TP SCH (09:53)
--- NOTE | 2021-05-16 11:00 | NUR ---
SPOKE TO MD ESCOBAR REGARDING PATIENT'S HR BEING 48-50'S. Per md to continue patient on same drips and since bp is ok no changes unless HR isbelow 40bpm.
[2021-05-16] MEDS: MIDAZOLAM HCL 100 MG in IV NS 0.9% 80 ML IV PRN (14:40)
[2021-05-16] MEDS: JEVITY 1.2 CAL 1,000 ML BOTTLE GT PRN (16:42)
--- NOTE | 2021-05-16 17:00 | NUR ---
PCR SWAB COLLECTED PER ID TEAM
--- NOTE | 2021-05-16 19:14 | NUR ---
AUTOMOBILE WASHER STEAM CLOSING NOTES Patient is sedated and on mechanical vent settings of 400, fi02 of 80% and peep of 14. Patient is on ng tube feeding via left nare with no residual noted during shift. f.c intact and hanging to gravity with clear yellow urine with output of 350 cc. BOBBI picc line and BOBBI mid line noted, patent and flushed well. On versed 6 mg/hour, fentanyl drip running 200 mcg/hour and propofol running at 15mcg/kg/min. Bilateral wrist restraints noted and circulation checked. Chest tube noted to right side with output of 20 cc during shift. Will continue to monitor. Call light with in reach. Bed is in lowest and locked position. Report given to oncoming shift RN.
--- NOTE | 2021-05-16 20:00 | NUR ---
RN NOTES RECEIVED PATIENT ORALLY INTUBATED WITH 7.5 AND 20 CM AT LIPLINE CONNECTED TO VENT SETTING AC 24 TV 400 FIO2 80% AND PEEP 14 TOEL;RATED WELL SATURATION 94%. AFEBRILE. SB ON MONITOR. NO ACUTE RESPIRATORY DISTRESS. SEDATED WITH DIPRIVAN, FENTANYL AND VERSED TITRATED ORDERED. IV SITE ON BOBBI PICC LINE AND BOBBI MIDLINE INTACT AND PATENT WITH CVP MONITOR. NGTF JEVIOTY 1.2 INTACT WITH MINIMAL RESIDUAL NOTED. KEPT PT CLEAN AND COMFORTABLE IN BED. WILL CONTINUE TO MONITOR.
[2021-05-16] MEDS: MELATONIN 5 MG PO SCH (21:12)
[2021-05-17] VITALS (48 sets, daily range): BP systolic 97–162; BP diastolic 48–91
[2021-05-17] MEDS: PROPOFOL 100 ML IV PRN ×3 (04:07→20:48)
[2021-05-17] MEDS: MIDAZOLAM HCL 100 MG in IV NS 0.9% 80 ML IV PRN ×2 (04:10→16:26)
[2021-05-17] MEDS: METOCLOPRAMIDE HCL 10 MG/2 ML VIAL IV SCH ×3 (06:42→17:13)
[2021-05-17] MEDS: FLUDROCORTISONE 0.1 MG TABLET NG SCH ×3 (06:42→17:13)
[2021-05-17] MEDS: BLOOD SUGAR DIAGNOSTIC 1 EACH STRIP IN SCH ×3 (07:12→18:00)
--- NOTE | 2021-05-17 07:20 | NUR ---
ADVERTISING DIRECTOR NOTES RECEIVED PATIENT IN BED IN MODERATE HIGH BACK REST, INTUBATED AND SEDATED, AFEBRILE. NO SIGNS OF DISTRESS NOTED AT THIS TIME, SB ON MONITOR, HR ON 50'S. NOTED WITH DIPRIVAN @15 MCG/KG/MIN, VERSED @6 ml/hr AND FENTANYL 200 MCG/KG/MIN TITRATED ORDERED.NOTED WITH MOUTH SORE, ORAL CARE PROVIDED FREQUENTLY, SUCTION NEEDED WITH MINIMAL YELLOWISH SECRETION. CHEST TUBE KEPT IN PLACED TO SUCTION NO LEAK NO BUBBLING. KEPT PT CLEAN AND COMFORTABEL IN BED. ENDORSED CONTINUITY OF CARE TO AM NURSE. Addendum: 05/17/21 at 1846 by TIM JAIN RN ADVERTISING DIRECTOR NOTES WRONG NOTES, DISREGARD NEW RN NOTES RECEIVED PATIENT IN BED IN MODERATE HIGH BACK REST, INTUBATED AND SEDATED, AFEBRILE. NO SIGNS OF DISTRESS NOTED AT THIS TIME, SB ON MONITOR, HR ON 50'S. NOTED WITH DIPRIVAN @15 MCG/KG/MIN, VERSED @6 ml/hr AND FENTANYL 200 MCG/KG/MIN TITRATED ORDERED.NOTED WITH MOUTH SORE, CHEST TUBE IN PLACED TO SUCTION NO OUTPUT FROM PER MANAGER CASH BUT NOTED WITH OCCASIONAL BUBBLING. SAFETY MEASURES MAINTAINTED WILL CONTINUE TO MONITOR.
--- NOTE | 2021-05-17 07:22 | NUR ---
RN NOTES PATIENT REMAINED THE SAME. AFEBRILE. ETT AND VENT SETTING TOLERATED WELL. SB ON MONITOR LOWEST HR ON 40'S. NO ACUTE RESPIRATORY DISTRESS. PATIENT SEDATED , CONTINUE WITH DIPRIVAN. VERSED AND FENTANYL TITRATED ORDERED. ORAL CARE AND MOUTH CARE FREQUENTLY PROVIDED DUE TO MOUTH SORE. SUCTION NEEDED WITH MINIMAL YELLOWISH SECRETION. CHEST TUBE KEPT IN PLACED TO SUCTION NO LEAK NO BUBBLING. KEPT PT CLEAN AND COMFORTABEL IN BED. ENDORSED CONTINUITY OF CARE TO AM NURSE.
[2021-05-17] MEDS: PANTOPRAZOLE 40 MG/PACK PACK GT SCH (08:17)
[2021-05-17] MEDS: ZINC SULFATE 220 MG CAPSULE GT SCH (08:17)
[2021-05-17] MEDS: LEVOTHYROXINE SODIUM 50 MCG TABLET GT SCH (08:18)
[2021-05-17] MEDS: DEXAMETHASONE SOD PHOSPHATE 10 MG/ML VIAL IV SCH ×2 (08:18→16:18)
[2021-05-17] MEDS: CHOLECALCIFEROL 1,000 UNIT TABLET (VIT D3) GT SCH (08:18)
[2021-05-17] MEDS: HYDROCORTISONE SOD SUCCINATE 100 MG/2 ML VIAL IV SCH (08:18)
[2021-05-17] MEDS: MELOXICAM 7.5 MG TABLET GT SCH (08:18)
[2021-05-17] MEDS: POLYETHYLENE GLYCOL 3350 17 GM POWD.PACK PO SCH ×2 (08:18→16:18)
[2021-05-17] MEDS: ASPIRIN EC 81 MG TABLET.DR PO SCH (08:18)
[2021-05-17] MEDS: CLOTRIMAZOLE 1% 15 GM TUBE TP SCH ×2 (08:19→16:19)
[2021-05-17] MEDS: Z GUARD REMEDY 2 OZ OINT TP SCH (08:19)
[2021-05-17] MEDS: ENOXAPARIN SODIUM 40 MG/0.4 ML DISP.SYRIN SQ SCH ×2 (08:20→20:59)
[2021-05-17] MEDS: PROSOURCE / PROSTAT (PYXIS) 30 ML UDC GT SCH ×3 (08:21→17:13)
[2021-05-17] MEDS: FENTANYL CITRATE/PF 2,500 MCG in IV NS 0.9% 200 ML IV PRN ×2 (09:00→20:56)
--- NOTE | 2021-05-17 10:00 | NUR ---
OPERATING ROOM ORDERLY NOTES SEEN AND EXAMINED BY DR. ESCOBAR WITH NNO AT THIS TIME.
--- NOTE | 2021-05-17 12:00 | NUR ---
BASIN TENDER NOTES DAUGHTER CALLED, UPDATES GIVEN REGARDING PATIENT STATUS.
[2021-05-17] MEDS: INSULIN REGULAR, HUMAN 100 UNIT/ML 3 ML VIAL SQ PRN ×2 (12:23→19:06)
--- NOTE | 2021-05-17 18:48 | NUR ---
ESCROW CLERK NOTES PATIENT IN BED IN MODERATE HIGH BACK REST, INTUBATED AND SEDATED, SB ON MONITOR, LOWEST HR OF 39 THROUGHOUT THE SHIFT. STILL ON DIPRIVAN @15 MCG/KG/MIN, VERSED @6 ml/hr AND FENTANYL 200 MCG/KG/MIN TITRATED ORDERED.NOTED WITH MOUTH SORE, FREQUENT ORAL CARE PROVIDED, CHEST TUBE IN PLACED TO SUCTION NO OUTPUT BUT NOTED WITH OCCASIONAL BUBBLING. SAFETY MEASURES MAINTAINTED WILL ENDORSE TO FITNESS COACH NURSE FOR MYRNA.
--- NOTE | 2021-05-17 19:30 | NUR ---
RN OPENING NOTES: RECEIVED SEDATED PT IN BED RESTING COMFORTABLY. PATIENT IN NO S/SX OF ACUTE DISTRESS AT THIS TIME. NO SOB NOTED. PATIENT'S BREATHING IS EVEN AND UNLABORED. PATIENT ON MECHANICAL VENT; SETTINGS PRESCRIBED; PT TOLERATED WELL. AMBU BAG AT BED SIDE ALARMS SET PER PROTOCOL AND AUDIBLE. VENT PLUGGED IN TO RED OUTLET. PATIENT ON TELE MONITORING READING SINUS RHYTHM HR IS @60s AT THE TIME OF RECEIVED. PATIENT ON TUBE FEEDING DIET; TOLERATES WELL. WITH NGT @ L NARE; SECURED AND INTACT. PLACEMENT VERIFIED VIA AUSCULTATION; CONNECTED TO TUBE FEEDING OF JEVITY 1.2 @45CC/HR;TOLERATES WELL. NOTED IV SITES ON L UA MIDLINE #18 AND L UA PICC LINE ; BOTH PATENT, INTACT AND FLUSHING WELL; NO S/S OF INFECTION OR INFILTRATION. PT HAS A RUNNING PROPOFOL DRIP @15MCG/KG/MIN (9.96MLS/HR), FENTANYL DRIP VIA MILL HAND PLATE MILL PUMP @200MCG/HR (20MLS/HR) AND VERSED DRIP VIA MILL HAND PLATE MILL PUMP @6MG/HR (6MLS/HR) ALL RUNNING AND MONITORED PER PROTOCOL. WONG CATH IN PLACE, SMALL AMOUNT OF URINE OUTPUT NOTED AT THE TIME OF RECEIVED. WITH DVT PUMP ON.ON SPECIALTY MATTRESS. SAFETY MEASURES HAVE BEEN PROVIDED AND IMPLEMENTED. PATIENT BED ALARM IS ON. HEAD OF BED ELEVATED. BED IS LOCKED, IN LOWEST POSITION AND SIDE RAILS UP. CALL LIGHT WITHIN REACH OF THE PATIENT. APPLICABLE ISOLATION PRECAUTIONS IN PLACE. WILL CONTINUE TO MONITOR AND REASSESS FOR ANY CHANGES AND WILL CARRY OUT ANY ONGOING AND ACTIVE MD ORDER.
--- NOTE | 2021-05-17 20:10 | NUR ---
RECEIVED PT INTUBATED ON VENT. ETT SECURED, CUFF CHECKED. VENT ALARMS SET AND AUDIBLE. PT TOLERATING SETTINGS. SX'D SMALL GREEN SECRETIONS. CONTINUE [facility] VENT SUPPORT. Addendum: 05/17/21 at 2012 by WICHO JACKSON RT Amended: Links added.
[2021-05-17] MEDS: MELATONIN 5 MG PO SCH (21:07)
--- NOTE | 2021-05-17 22:58 | NUR ---
RN NOTES RECEIVED CALL FROM FAMILY; KINGSTON (DAUGHTER) [phone]; PROVIDED GENERAL UPDATES REGARDING THE PATIENT.. FAMILY WAS ADVISE TO CALL IN THE MORNING TO GET MORE CONCRETE INFO ABOUT [place] FROM M. FAMILY VERY THANKFUL FOR ALL THE HELP TO THE PT. RN ACKNOWLEDGED.
--- NOTE | 2021-05-17 23:00 | NUR ---
RN NOTES PATIENT REMAINED TO BE IN NO SIGNS OF ACUTE RESPIRATORY DISTRESS , VITAL SIGNS WNL AT THIS TIME. WILL CONTINUE TO MONITOR AND REASSESS FOR ANY CHANGES THROUGHOUT THE SHIFT.
[2021-05-18] VITALS (45 sets, daily range): BP systolic 86–160; BP diastolic 43–82
[2021-05-18] MEDS: METOCLOPRAMIDE HCL 10 MG/2 ML VIAL IV SCH ×5 (00:02→23:25)
[2021-05-18] MEDS: FLUDROCORTISONE 0.1 MG TABLET NG SCH ×5 (00:02→23:25)
[2021-05-18] MEDS: BLOOD SUGAR DIAGNOSTIC 1 EACH STRIP IN SCH ×5 (00:10→23:46)
[2021-05-18] MEDS: INSULIN REGULAR, HUMAN 100 UNIT/ML 3 ML VIAL SQ PRN ×5 (00:13→23:49)
[2021-05-18] MEDS: JEVITY 1.2 CAL 1,000 ML BOTTLE GT PRN (04:56)
--- NOTE | 2021-05-18 07:00 | NUR ---
RN CLOSING NOTE: PATIENT REMAINS IN ROOM IN NO SIGNS OF RESPIRATORY DISTRESS, PATIENT STILL ON MECH VENT; SETTINGS PRESCRIBED;TOLERATING WELL SATURATING @ >90% SP02. SAFETY MEASURES IMPLEMENTED, BED IN LOWEST POSITION, LOCKED, SIDE RAILS UP, CALL LIGHT WITHIN REACH. ALL NEEDS AND ORDERS ADDRESSED DURING THE SHIFT. IV ACCESS MAINTAINED INTACT, SECURED AND FLUSHING WELL. ALL DUE MEDS GIVEN ORDERED & SCHEDULED ; PATIENT TOLERATED WELL. STILL WITH ONGOING DRIP FOLLOWS: PROPOFOL DRIP @15MCG/KG/MIN (9.96MLS/HR), FENTANYL DRIP VIA DRILL OPERATOR AUTOMATIC PUMP @200MCG/HR (20MLS/HR) AND VERSED DRIP VIA DRILL OPERATOR AUTOMATIC PUMP @6MG/HR (6MLS/HR) ALL RUNNING AND MONITORED PER PROTOCOL PATIENT KEPT CLEAN AND COMFORTABLE WITHIN THE SHIFT. PATIENT ENDORSED TO INCOMING SHIFT RN WITH STABLE VITAL SIGN AND FOR CONTINUITY OF CARE.
--- NOTE | 2021-05-18 07:30 | NUR ---
ICU/RN PT IS INTUBATED ON THE VENT AC MODE,FIO2-80%,PEEP-14,SAT O2-93%.SEDATED ON DIPRIVAN,VERSED AND FENTANYL.V/S STABLE,OFF PRESSORS.AFEBRILE.NO PAIN REPORTED AT THIS TIME.PT HAS LEFT UPPER ARM PICC LINE AND MID LINE.NG TUBE INFUSING WITH JEVITY AT 45 ML/HR.RESIDUAL 40 ML NOTED.RIGHT CHEST TUBE.F/C DRAINING WITH CLOUDY YELLOW URINE.MULTIPLY BRUISES NOTED ALL OVER THE BODY.REDNESS ON PERINEAL AREA NOTED,SACRAL AREA REDNESS COVERED WITH MEPILEX.LABS ORDERED. REPOSITION FOR COMFORT.SUCTION PROVIDED.PT HAS BLOODY SECRETION.AND LIPS WOUND.
[2021-05-18 09:04] LABS: BASOPHILS % (AUTO) 0.3 % (0.0-2.0); EOSINOPHILS % (AUTO) 1.9 % (0.0-6.0); HEMATOCRIT 30 % (33-45); HEMOGLOBIN 10.1 g/dL (11.5-14.8); LYMPHOCYTES # (AUTO) 0.4 K/uL (0.8-4.8); LYMPHOCYTES % (AUTO) 5.6 % (20.0-44.0); MEAN CORPUSCULAR HGB CONC 34 g/dl (31.0-36.0); MEAN CORPUSCULAR VOLUME 81 fL (82-100); MONOCYTES # (AUTO) 0.2 K/uL (0.1-1.30); MONOCYTES % (AUTO) 2.8 % (2.0-12.0); NEUTROPHILS # (AUTO) 5.6 K/uL (1.8-8.9); NEUTROPHILS % (AUTO) 89.4 % (43.0-81.0); PLATELET COUNT (AUTO) 201 K/uL (150-450); RED BLOOD CELL COUNT(AUTO) 3.72 MIL/uL (4.0-5.2); WHITE BLOOD COUNT (AUTO) 6.3 K/uL (4.3-11.0)
[2021-05-18] MEDS: ENOXAPARIN SODIUM 40 MG/0.4 ML DISP.SYRIN SQ SCH ×2 (09:10→20:03)
[2021-05-18] MEDS: POLYETHYLENE GLYCOL 3350 17 GM POWD.PACK PO SCH ×2 (09:11→17:36)
[2021-05-18] MEDS: PANTOPRAZOLE 40 MG/PACK PACK GT SCH (09:11)
[2021-05-18] MEDS: HYDROCORTISONE SOD SUCCINATE 100 MG/2 ML VIAL IV SCH (09:11)
[2021-05-18] MEDS: DEXAMETHASONE SOD PHOSPHATE 10 MG/ML VIAL IV SCH ×2 (09:12→17:36)
[2021-05-18] MEDS: ASPIRIN EC 81 MG TABLET.DR PO SCH (09:12)
[2021-05-18] MEDS: MELOXICAM 7.5 MG TABLET GT SCH (09:12)
[2021-05-18] MEDS: CHOLECALCIFEROL 1,000 UNIT TABLET (VIT D3) GT SCH (09:12)
[2021-05-18] MEDS: ZINC SULFATE 220 MG CAPSULE GT SCH (09:12)
[2021-05-18] MEDS: PROSOURCE / PROSTAT (PYXIS) 30 ML UDC GT SCH ×3 (09:13→17:36)
[2021-05-18] MEDS: CLOTRIMAZOLE 1% 15 GM TUBE TP SCH ×2 (09:14→17:37)
[2021-05-18] MEDS: Z GUARD REMEDY 2 OZ OINT TP SCH (09:14)
--- NOTE | 2021-05-18 09:15 | NUR ---
ICU/RN DUE MEDS ARE GIVEN ORDERED.UNABLE PROVIDE SEDATION VACATION PT IS NOT STABLE AT THIS TIME..PT IS ON HIGH FIO2-90%,PEEP-14. SAT O2-93%,RESPIRATION RATE 33-35 BPM.HAS RIGHT CHEST TUBE .REACTIVE ON PAIN STIMULATION.
[2021-05-18] MEDS: LEVOTHYROXINE SODIUM 50 MCG TABLET GT SCH (09:16)
[2021-05-18] MEDS: FENTANYL CITRATE/PF 2,500 MCG in IV NS 0.9% 200 ML IV PRN ×2 (09:32→22:17)
[2021-05-18] MEDS: MIDAZOLAM HCL 100 MG in IV NS 0.9% 80 ML IV PRN (09:33)
[2021-05-18 09:34] LABS: ALBUMIN 1.6 g/dL (3.4-5.0); BILIRUBIN,TOTAL 0.3 mg/dL (0.2-1.0); CALCIUM, SERUM 7.8 mg/dL (8.5-10.1); CREATININE 0.4 mg/dL (0.6-1.3); TOTAL PROTEIN, SERUM 5.7 g/dL (6.4-8.2)
[2021-05-18] MEDS: PROPOFOL 100 ML IV PRN ×3 (09:36→23:21)
--- NOTE | 2021-05-18 17:35 | NUR ---
ICU/RN PM CARE PROVIDED ,WOUND DRESSING DONE ORDERED.DUE MEDS ARE GIVEN SUCTION PROVIDED ,REPOSITION FOR COMFORT.CONTINUE MONITORING.
--- NOTE | 2021-05-18 19:30 | NUR ---
RN NOTE RECEIVED PATIENT IN BED, SEDATED, IN NO S/SX OF ACUTE DISTRESS AT THIS TIME. ON ET TUBE 7.5, 20 ON THE LIP LINE CONNECTED TO MECHANICAL VENT WITH SETTINGS PRESCRIBED AC 24, TV 400, FIO2 90%, PEEP 14, SATURATION AT 88%, RT YUE WAS NOTIFIED, SR ON THE MONITOR, HR IS 67. NOTED BOBBI PICC LINE, AND BOBBI MIDLINE 18G, ALL HUBS PATENT AND FLUSHING WELL, NO S/S OF INFECTION, WITH DIPRIVAN INFUSING AT 20 MCG/KG/MIN, FENTANYL AT 200 MCG/HG, AND VERSED AT 6 MG/HR. NOTED NG TUBE AT L NARE INTACT, VERIFIED BY AUSCULTATION AND ASPIRATION, POSITIVE PLACEMENT NOTED, MINIMAL RESIDUAL NOTED , WITH TUBE FEEDING OF JEVITY AT 45 ML/HR. WONG CATHETER CONNECTED TO URINE BAG, DRAINING TO A CLEAR YELLOW OUTPUT. SAFETY MEASURES IMPLEMENTED. PATIENT BED ALARM IS ON. HEAD OF BED ELEVATED. BED IS LOCKED, IN LOWEST POSITION AND SIDE RAILS UP. CALL LIGHT WITHIN REACH OF THE PATIENT. WILL CONTINUE TO MONITOR AND REASSESS FOR ANY CHANGES. SATURATION RECHECKED, RESULTED 93%
[2021-05-18] MEDS: MELATONIN 5 MG PO SCH (21:57)
--- NOTE | 2021-05-18 21:57 | NUR ---
RN NOTE MELATONIN NON ADMINISTERED PT IS SEDATED.
[2021-05-19] VITALS (33 sets, daily range): BP systolic 96–159; BP diastolic 45–95
[2021-05-19] MEDS: MIDAZOLAM HCL 100 MG in IV NS 0.9% 80 ML IV PRN ×2 (01:32→17:36)
[2021-05-19] MEDS: PROPOFOL 100 ML IV PRN ×4 (04:32→22:21)
[2021-05-19 04:49] LABS: BASOPHILS % (AUTO) 0.1 % (0.0-2.0); EOSINOPHILS % (AUTO) 0.3 % (0.0-6.0); HEMATOCRIT 29 % (33-45); HEMOGLOBIN 9.6 g/dL (11.5-14.8); LYMPHOCYTES # (AUTO) 0.3 K/uL (0.8-4.8); LYMPHOCYTES % (AUTO) 4.6 % (20.0-44.0); MEAN CORPUSCULAR HGB CONC 33 g/dl (31.0-36.0); MEAN CORPUSCULAR VOLUME 81 fL (82-100); MONOCYTES # (AUTO) 0.2 K/uL (0.1-1.30); MONOCYTES % (AUTO) 3.2 % (2.0-12.0); NEUTROPHILS # (AUTO) 5.2 K/uL (1.8-8.9); NEUTROPHILS % (AUTO) 91.8 % (43.0-81.0); PLATELET COUNT (AUTO) 203 K/uL (150-450); RED BLOOD CELL COUNT(AUTO) 3.55 MIL/uL (4.0-5.2); WHITE BLOOD COUNT (AUTO) 5.6 K/uL (4.3-11.0)
[2021-05-19 05:05] LABS: CALCIUM, SERUM 7.5 mg/dL (8.5-10.1); CREATININE 0.4 mg/dL (0.6-1.3); MAGNESIUM 2.3 mg/dL (1.8-2.4); POTASSIUM 4.2 mmol/L (3.5-5.1)
[2021-05-19] MEDS: METOCLOPRAMIDE HCL 10 MG/2 ML VIAL IV SCH ×3 (05:37→17:19)
[2021-05-19] MEDS: FLUDROCORTISONE 0.1 MG TABLET NG SCH ×3 (05:38→17:19)
[2021-05-19] MEDS: BLOOD SUGAR DIAGNOSTIC 1 EACH STRIP IN SCH ×3 (05:53→18:09)
--- NOTE | 2021-05-19 06:10 | NUR ---
RT NOTE PT RECEIVED ON ETT AND ON [facility] VENT ON ORDERED SETTINGS. VENT IS PLUGGED INTO RED OUTLET. BMV @ [facility]. ALARMS ARE SET AND AUDIBLE. ETT IS PATENT AND SECURE. NO RESP DISTRESS NOTED T/O SHIFT. Addendum: 05/19/21 at 0611 by YUE REEVES RT Amended: Links added.
--- NOTE | 2021-05-19 07:30 | NUR ---
BLOOD BANK MANAGER OPENING NOTES Patient is sedated and on mechanical vent settings of 400, fi02 of 90% and peep of 14. Patient is on ng tube feeding via left nare with no residual noted during shift. f.c intact and hanging to gravity with clear yellow urine. BOBBI picc line and BOBBI mid line noted, patent and flushed well. On versed 6 mg/hour, fentanyl drip running 200 mcg/hour and propofol running at 20mcg/kg/min. Bilateral wrist restraints noted and circulation checked. Will continue to monitor. Call light with in reach. Bed is in lowest and locked position.
--- NOTE | 2021-05-19 07:30 | NUR ---
RN NOTE PATIENT REMAINS IN BED, NO SIGNIFICANT CHANGE IN CONDITION NOTED, SATURATION CURRENTLY AT 95% ON ET TUBE 7.5, 20 ON THE LIP LINE CONNECTED TO MECHANICAL VENT WITH THE SAME SETTINGS: AC 24, TV 400, FIO2 90%, PEEP 14, BOBBI PICC LINE, AND BOBBI MIDLINE 18G PATENT AND FLUSHING, WITH DIPRIVAN INFUSING AT 20 MCG/KG/MIN, FENTANYL AT 200 MCG/HG, AND VERSED AT 6 MG/HR, NG TUBE AT L NARE INTACT, VERIFIED BY AUSCULTATION AND ASPIRATION, POSITIVE PLACEMENT NOTED, NO RESIDUAL, TUBE FEEDING OF JEVITY RUNNING AT 45 ML/HR.SAFETY MEASURES IMPLEMENTED. ENDORSED TO MARIAN RN FOR MYRNA.
[2021-05-19] MEDS: ZINC SULFATE 220 MG CAPSULE GT SCH (08:04)
[2021-05-19] MEDS: HYDROCORTISONE SOD SUCCINATE 100 MG/2 ML VIAL IV SCH (08:06)
[2021-05-19] MEDS: DEXAMETHASONE SOD PHOSPHATE 10 MG/ML VIAL IV SCH ×2 (08:06→17:19)
[2021-05-19] MEDS: PANTOPRAZOLE 40 MG/PACK PACK GT SCH (08:07)
[2021-05-19] MEDS: LEVOTHYROXINE SODIUM 50 MCG TABLET GT SCH (08:07)
[2021-05-19] MEDS: CHOLECALCIFEROL 1,000 UNIT TABLET (VIT D3) GT SCH (08:07)
[2021-05-19] MEDS: ASPIRIN EC 81 MG TABLET.DR PO SCH (08:07)
[2021-05-19] MEDS: POLYETHYLENE GLYCOL 3350 17 GM POWD.PACK PO SCH ×2 (08:07→17:19)
[2021-05-19] MEDS: MELOXICAM 7.5 MG TABLET GT SCH (08:07)
[2021-05-19] MEDS: CLOTRIMAZOLE 1% 15 GM TUBE TP SCH ×2 (08:08→17:20)
[2021-05-19] MEDS: PROSOURCE / PROSTAT (PYXIS) 30 ML UDC GT SCH ×3 (08:08→17:20)
[2021-05-19] MEDS: Z GUARD REMEDY 2 OZ OINT TP SCH (08:08)
[2021-05-19] MEDS: JEVITY 1.2 CAL 1,000 ML BOTTLE GT PRN (08:09)
[2021-05-19] MEDS: ENOXAPARIN SODIUM 40 MG/0.4 ML DISP.SYRIN SQ SCH ×2 (08:22→20:45)
--- NOTE | 2021-05-19 09:26 | NUR ---
RT decreased fi02 to 85% and patient's 02 saturation dropped to 82-86%. Patient placed back on Fi02 of 90%.
[2021-05-19] MEDS: FENTANYL CITRATE/PF 2,500 MCG in IV NS 0.9% 200 ML IV PRN ×2 (10:13→22:21)
--- NOTE | 2021-05-19 12:00 | NUR ---
Patient's daughter called and requested Diuretics and NA-C . MD Adames made aware and per md patient's CVP reading is too low for them to give diuretics ranging from 4-6 and Per MD patient does not have secretions and doesn't need NA-C. Daughter called and made aware. Daughter understood the reason for no diuretics but requested process description writer to contact primary care Dr Bustos for NA-C approval. Daughter also made aware of her mom's condition.
[2021-05-19] MEDS: INSULIN REGULAR, HUMAN 100 UNIT/ML 3 ML VIAL SQ PRN ×2 (13:23→18:08)
--- NOTE | 2021-05-19 19:23 | NUR ---
SALES UTILITY REPRESENTATIVE OPENING NOTES Patient is sedated and on mechanical vent settings of 400, fi02 of 90% and peep of 14. f.c intact and hanging to gravity with clear yellow urine. BOBBI picc line and BOBBI mid line noted, patent and flushed well. On versed 6 mg/hour, fentanyl drip running 200 mcg/hour and propofol running at 25 mcg/kg/min. Will continue to monitor. Call light with in reach. Bed is in lowest and locked position. Addendum: 05/19/21 at 1924 by HENRIETTA PARKER RN CORRECTION RN CLOSING NOTES
--- NOTE | 2021-05-19 19:24 | NUR ---
SQL BI DEVELOPER CLOSING NOTES Patient is sedated and on mechanical vent settings of 400, fi02 of 90% and peep of 14. f.c intact and hanging to gravity with clear yellow urine. BOBBI picc line and BOBBI mid line noted, patent and flushed well. On versed 6 mg/hour, fentanyl drip running 200 mcg/hour and propofol running at 25 mcg/kg/min. Will continue to monitor. Call light with in reach. Bed is in lowest and locked position.
[2021-05-19] MEDS: MELATONIN 5 MG PO SCH (22:00)
[2021-05-20] VITALS (62 sets, daily range): BP systolic 72–184; BP diastolic 43–92
[2021-05-20] MEDS: METOCLOPRAMIDE HCL 10 MG/2 ML VIAL IV SCH ×4 (00:11→17:06)
[2021-05-20] MEDS: FLUDROCORTISONE 0.1 MG TABLET NG SCH ×4 (00:14→17:09)
[2021-05-20] MEDS: INSULIN REGULAR, HUMAN 100 UNIT/ML 3 ML VIAL SQ PRN ×4 (00:51→18:48)
[2021-05-20] MEDS: BLOOD SUGAR DIAGNOSTIC 1 EACH STRIP IN SCH ×4 (00:51→17:06)
[2021-05-20] MEDS: PROPOFOL 100 ML IV PRN ×7 (04:28→21:13)
[2021-05-20] MEDS: MIDAZOLAM HCL 100 MG in IV NS 0.9% 80 ML IV PRN ×2 (06:27→17:05)
--- NOTE | 2021-05-20 06:30 | NUR ---
CADDY/CADDIE SUPERVISOR: CONTINUE ON SAME VENT SETTINGS ORDERED. PT DESATS FAST DURING ADL, TURNING AND REPOSITIONING SO UNABLE TO TURN EVERY TWO HOURS. CONTINUE ON DIPRIVAN DRIP AT 25MCG/KG/MIN, FENTANYL AT 200MCG/HR AND VERSED AT 6MG/HR. BILAT. SOFT WRIST RESTRAINTS IN PLACE TO PREVENT SELF EXTUBATION. SKIN AND CIRCULATION WNL WT NO BREAKDOWN. NGT FEEDING RESIDUAL HIGHEST DURING THE SHIFT AT 50ML. NO S/S OF DISCOMFORT. F/C DRAINAGE BAG CHANGED D/T LEAKING. RT. CHEST TUBE IN PLACE TO WALL SUCTION WT 10CC SEROUS COLORED DRAINAGE. INSULIN COVERED PER SS. SR-SB ON ENGLISH FACULTY MEMBER. AFEBRILE. BP WITHIN BASELINE. HOB ON HIGH SIMPSON'S, BED IN LOWEST POSITION AND LOCKED, BED ALARM ACTIVATED, SIDE RAILS UP X2. WILL CONTINUE TO MONITOR.
--- NOTE | 2021-05-20 07:30 | NUR ---
ICU/RN PT IS INTUBATED ON THE VENT AC MODE,FIO2-90%,PEEP-14,SAT O2-91%.RR-35-40 BPM.,AFEBRILE. SEDATED WITH DIPRIVAN,VERSED,FENTANYL.LEFT UPPER ARM PICC LINE AND MID LINE.NG TUBE INFUSING JEVITY AT 45 ML/HR.70 ML RESIDUAL NOTED.F/C DRAINING WITH DONG URINE.REDNESS ON MARCELO AREA AND LOWER BACK NOTED.MULTIPLY BRUISES NOTED ALL OVER THE BODY.LABS ORDERED.
[2021-05-20] MEDS: HYDROCORTISONE SOD SUCCINATE 100 MG/2 ML VIAL IV SCH (08:14)
[2021-05-20] MEDS: MELOXICAM 7.5 MG TABLET GT SCH (08:14)
[2021-05-20] MEDS: DEXAMETHASONE SOD PHOSPHATE 10 MG/ML VIAL IV SCH ×2 (08:14→16:34)
[2021-05-20] MEDS: CHOLECALCIFEROL 1,000 UNIT TABLET (VIT D3) GT SCH (08:14)
[2021-05-20] MEDS: ASPIRIN EC 81 MG TABLET.DR PO SCH (08:14)
[2021-05-20] MEDS: ZINC SULFATE 220 MG CAPSULE GT SCH (08:14)
[2021-05-20] MEDS: LEVOTHYROXINE SODIUM 50 MCG TABLET GT SCH (08:14)
[2021-05-20] MEDS: PANTOPRAZOLE 40 MG/PACK PACK GT SCH (08:15)
[2021-05-20] MEDS: ENOXAPARIN SODIUM 40 MG/0.4 ML DISP.SYRIN SQ SCH ×2 (08:15→22:26)
[2021-05-20] MEDS: Z GUARD REMEDY 2 OZ OINT TP SCH (08:16)
[2021-05-20] MEDS: CLOTRIMAZOLE 1% 15 GM TUBE TP SCH ×2 (08:16→16:35)
[2021-05-20] MEDS: POLYETHYLENE GLYCOL 3350 17 GM POWD.PACK PO SCH ×2 (08:16→16:34)
[2021-05-20] MEDS: PROSOURCE / PROSTAT (PYXIS) 30 ML UDC GT SCH ×3 (08:19→16:34)
[2021-05-20] MEDS: JEVITY 1.2 CAL 1,000 ML BOTTLE GT PRN (08:26)
[2021-05-20 09:04] LABS: BASOPHILS % (AUTO) 0.3 % (0.0-2.0); EOSINOPHILS % (AUTO) 1.2 % (0.0-6.0); HEMATOCRIT 33 % (33-45); LYMPHOCYTES # (AUTO) 0.5 K/uL (0.8-4.8); LYMPHOCYTES % (AUTO) 5.3 % (20.0-44.0); MEAN CORPUSCULAR HGB CONC 33 g/dl (31.0-36.0); MEAN CORPUSCULAR VOLUME 81 fL (82-100); MONOCYTES # (AUTO) 0.2 K/uL (0.1-1.30); MONOCYTES % (AUTO) 2.7 % (2.0-12.0); NEUTROPHILS # (AUTO) 8.2 K/uL (1.8-8.9); NEUTROPHILS % (AUTO) 90.5 % (43.0-81.0); PLATELET COUNT (AUTO) 243 K/uL (150-450); RED BLOOD CELL COUNT(AUTO) 4.07 MIL/uL (4.0-5.2); WHITE BLOOD COUNT (AUTO) 9.1 K/uL (4.3-11.0)
--- NOTE | 2021-05-20 09:05 | NUR ---
ICU/RN DUE MEDS ARE GIVEN ORDERED. LABS REVIEW.DR ESCOBAR SEEN THE PT .RR IS 40 ,PT PLACED ON 100% FIO2,SAT O2-80-85%.INCREASED ALL SEDATION MEDICATIONS UP TO MAXIMUM DOSE TO CONTROL RESPIRATION RATE. UNABLE PROVIDE SEDATION VACATION .PT IS UNSTABLE.
--- NOTE | 2021-05-20 10:20 | NUR ---
fio2 increased from 90 to 100% due to 76% saturation. rn aware on changes made. Addendum: 05/20/21 at 1116 by NATASHA JANG RT Amended: Links added.
[2021-05-20] MEDS ORDERED: PROPOFOL 100 ML IV PRN (10:30)
[2021-05-20 10:33] LABS: BAND % (MANUAL) 1 % (0.0-5.0); LYMPHOCYTES % (MANUAL) 6 % (16-48); MONOCYTES % (MANUAL) 1 % (0-11.0); NEUTROPHILS % (MANUAL) 92 (42-76)
--- NOTE | 2021-05-20 10:46 | NUR ---
WOUND CARE CONSULT: REVIEWED CHART, NURSING DOCUMENTATION AND PHOTO WHICH INDICATES SOME REDNESS/SKIN DISCOLORATION TO SACRAL/BUTTOCKS AREA. PT IS UNSTABLE TO BE TURNED PER RN. ALL SKIN PROTECTION MEASURES IN PLACE. DISCUSSED WITH NURSING STAFF. PT HAS MULTIPLE CO-MORBIDITIES INCLUDING COVID PNEUMONIA AND IS CURRENTLY INTUBATED. DUE TO MULTIPLE CO-MORBIDITES, FURTHER SKIN BREAKDOWN MAY BE UNAVOIDABLE. PT IS ON FIRST STEP [facility] AIRLOSS MATTRESS. IN AGREEMENT WITH PLAN OF CARE.
[2021-05-20 11:02] LABS: CALCIUM, SERUM 7.4 mg/dL (8.5-10.1); CREATININE 0.4 mg/dL (0.6-1.3)
[2021-05-20] MEDS: NOREPINEPHRINE 8 MG in IV NS 0.9% 242 ML IV PRN (11:28)
[2021-05-20] MEDS: LORAZEPAM INJ 2 MG/ML VIAL IV PRN ×3 (11:38→16:34)
[2021-05-20 11:40] LABS: ABG BASE EXCESS 3.3 mmol/L; ABG OXYGEN SATURATION 88.2 % (92.0-98.5); ABG PCO2 41.3 mmHg (35.0-45.0); ABG PH 7.444 (7.350-7.450); ABG PO2 54.6 mmHg (75.0-100.0); AaDO2 617.1 mmHg; COHb 1.2 % (0.5-1.5); MetHb 0.2 % (0.0-1.5); PEEP,BG 14 cm H2O; SITE, ABG Right Radial; VT, ABG 400 mL
[2021-05-20] MEDS: FENTANYL CITRATE/PF 2,500 MCG in IV NS 0.9% 200 ML IV PRN (13:28)
--- NOTE | 2021-05-20 14:00 | NUR ---
ICU/RN DIPRIVAN INCREASED TO 100 MCG/KG/MIN,VERSED 10 MG/HR .ATIVAN 1 MG IV GIVEN ORDERED.BP DECREASED LEVOPHED STARTED ORDERED. RR IS NOW 24-25.CONTINUE MONITORING.
--- NOTE | 2021-05-20 19:53 | NUR ---
BARTENDER. INITIAL ASSESSMENT. RECEIVED THE PT REST ON THE BED. ORALLY INTUBATED. ETT 7.5,LIP 20CMS,AC 24, TV 400,FIO2 90%,PEEP 14. SAT 95%. CIVIL ENGINEERING PROFESSIONAL SHOWING S MADELAINE CARDIA. IV LT UPPER ARM PICC LINE AND LT MID LINE. DIPRIVAN 100MCG/KG/MIN,VERSED 10MG,FENTANYL 200MCG/KG/MIN,LEVOPHED 0.05MCG/KG/MIN,FC PATENT. URINE DRAINING,LT NARE NGT JEVITY 35 ML/H,HOB ELEVATED. WILL CONTINUE TO MONITOR VITALS.
[2021-05-20] MEDS: MELATONIN 5 MG PO SCH (21:58)
[2021-05-21] VITALS (86 sets, daily range): BP systolic 82–138; BP diastolic 37–71
--- NOTE | 2021-05-21 | NUR ---
RESTORER LACE AND TEXTILES. DURING SHIFT NO CHANGES NOTED.
[2021-05-21] MEDS: BLOOD SUGAR DIAGNOSTIC 1 EACH STRIP IN SCH ×4 (00:30→17:37)
[2021-05-21] MEDS: METOCLOPRAMIDE HCL 10 MG/2 ML VIAL IV SCH ×5 (00:30→23:16)
[2021-05-21] MEDS: FLUDROCORTISONE 0.1 MG TABLET NG SCH ×5 (00:30→23:16)
[2021-05-21] MEDS: INSULIN REGULAR, HUMAN 100 UNIT/ML 3 ML VIAL SQ PRN ×4 (00:33→18:51)
[2021-05-21] MEDS: PROPOFOL 100 ML IV PRN ×13 (01:28→22:20)
[2021-05-21] MEDS: FENTANYL CITRATE/PF 2,500 MCG in IV NS 0.9% 200 ML IV PRN ×2 (01:36→14:55)
[2021-05-21 04:39] LABS: BASOPHILS % (AUTO) 0.1 % (0.0-2.0); EOSINOPHILS % (AUTO) 0.2 % (0.0-6.0); HEMATOCRIT 29 % (33-45); HEMOGLOBIN 9.5 g/dL (11.5-14.8); LYMPHOCYTES # (AUTO) 0.5 K/uL (0.8-4.8); LYMPHOCYTES % (AUTO) 4.9 % (20.0-44.0); MEAN CORPUSCULAR HGB CONC 33 g/dl (31.0-36.0); MEAN CORPUSCULAR VOLUME 81 fL (82-100); MONOCYTES # (AUTO) 0.4 K/uL (0.1-1.30); MONOCYTES % (AUTO) 3.9 % (2.0-12.0); NEUTROPHILS % (AUTO) 90.9 % (43.0-81.0); PLATELET COUNT (AUTO) 269 K/uL (150-450); RED BLOOD CELL COUNT(AUTO) 3.52 MIL/uL (4.0-5.2)
[2021-05-21 04:47] LABS: CALCIUM, SERUM 7.9 mg/dL (8.5-10.1); CREATININE 0.3 mg/dL (0.6-1.3); POTASSIUM 3.9 mmol/L (3.5-5.1)
--- NOTE | 2021-05-21 04:57 | NUR ---
ELECTROPLATING LABORER. HARI CISSE.RTEMAINING SAME VENTSETTINGS ON. SAT 94%.NOACUTE DISTRESS NOTED. SURGICAL TECH SHOWING S MADELAINE.AFEBRILE. FC PATENT.URINE DRAINING. HOB ELEVATED. SAME NGT FEEDING RUNNING. FC PATENT URINE DRAINING.HOB ELEVATED. TURN AND REPOSITION Q2H. WILLCONTINUE TO MONITOR VITALS.
[2021-05-21] MEDS: MIDAZOLAM HCL 100 MG in IV NS 0.9% 80 ML IV PRN ×2 (05:45→16:46)
[2021-05-21] MEDS ORDERED: NOREPINEPHRINE 8MG/250ML RTU 250 ML IV ONE (05:53)
[2021-05-21] MEDS: NOREPINEPHRINE 8 MG in IV NS 0.9% 242 ML IV PRN (05:56)
--- NOTE | 2021-05-21 06:22 | NUR ---
agricultural research technician. ngt residual 200ml.0600 hold the feeding.will recheck.chest tube drain 50 ml
--- NOTE | 2021-05-21 07:40 | NUR ---
ICU/RN PT IS INTUBATED ON THE VENT AC MODE,FIO2-90%,PEEP -14.SAT O2-92%.SEDATED ,ON DIPRIVAN ,VERSED,FENTANYL MAXIMUM DOSES DRIPS.TO KEEP RESPIRATION RATE 24, ORDERED BY DR ESCOBAR.ON LEVOPHED DRIP.AFEBRILE.LEFT UPPER ARM PICC LINE AND MIDLINE .NG TUBE CLAMPED PT HAS RESIDUAL,ON REGLAN IV.F/C DRAINING WITH DONG URINE.MULTIPLY BRUISES NOTED ALL OVER THE BODY ,REDNESS ON THE MARCELO AREA AND LOWER BACK NOTED.WOUND ON THE SACRUM COVERED WITH MEPILEX .PT IS OBESE ,SUCTION PROVIDED.REPOSITION FOR COMFORT.RIGHT CHEST TUBE .LABS REVIEW. ABG DONE.CONTINUE MONITORING
[2021-05-21 08:28] LABS: ABG BASE EXCESS 7.9 mmol/L; ABG PCO2 60.9 mmHg (35.0-45.0); ABG PH 7.375 (7.350-7.450); ABG PO2 65.8 mmHg (75.0-100.0); AaDO2 513.5 mmHg; COHb 1.2 % (0.5-1.5); O2Hb 91.9 % (94.0-97.0); SITE, ABG Right Radial
[2021-05-21] MEDS: CHOLECALCIFEROL 1,000 UNIT TABLET (VIT D3) GT SCH (08:40)
[2021-05-21] MEDS: HYDROCORTISONE SOD SUCCINATE 100 MG/2 ML VIAL IV SCH (08:40)
[2021-05-21] MEDS: ASPIRIN EC 81 MG TABLET.DR PO SCH (08:40)
[2021-05-21] MEDS: POLYETHYLENE GLYCOL 3350 17 GM POWD.PACK PO SCH ×2 (08:40→16:02)
[2021-05-21] MEDS: PANTOPRAZOLE 40 MG/PACK PACK GT SCH (08:40)
[2021-05-21] MEDS: ZINC SULFATE 220 MG CAPSULE GT SCH (08:40)
[2021-05-21] MEDS: DEXAMETHASONE SOD PHOSPHATE 10 MG/ML VIAL IV SCH ×2 (08:40→16:07)
[2021-05-21] MEDS: MELOXICAM 7.5 MG TABLET GT SCH (08:40)
[2021-05-21] MEDS: ENOXAPARIN SODIUM 40 MG/0.4 ML DISP.SYRIN SQ SCH ×2 (08:42→20:42)
[2021-05-21] MEDS: Z GUARD REMEDY 2 OZ OINT TP SCH (08:44)
[2021-05-21] MEDS: CLOTRIMAZOLE 1% 15 GM TUBE TP SCH ×2 (08:44→16:07)
[2021-05-21] MEDS: LEVOTHYROXINE SODIUM 50 MCG TABLET GT SCH (08:57)
[2021-05-21] MEDS: PROSOURCE / PROSTAT (PYXIS) 30 ML UDC GT SCH ×3 (08:57→16:02)
--- NOTE | 2021-05-21 09:04 | NUR ---
WOUND CARE CONSULT/FOLLOW UP: PT IS UNSTABLE TO BE TURNED FOR SKIN ASSESSMENT OF SACRUM PER RN DUE TO DESATURATION. REVIEWED SACRAL PHOTO WHICH INDICATED INTACT DEEP TISSUE INJURY. PT NOTED TO HAVE MULTIPLE CO-MORBIDITIES INCLUDING ACUTE RESPIRATORY FAILURE SECONDARY TO COVID 19 PNEUMONIA, RT PNEUMOTHORAX, SHOCK, HYPERTENSION AND OBESITY. DUE TO MULTIPLE CO-MORBIDITIES,FURTHER SKIN BREAKDOWN MAY BE UNAVOIDABLE. RECOMMENDATIONS MADE FOR SKIN PROTECTION AND WOUND CARE. DISCUSSED WITH NURSING STAFF. MD IN AGREEMENT WITH PLAN OF CARE. PT REMAINS INTUBATED AND ON FIRST STEP [facility]. Addendum: 05/21/21 at 0917 by ALEJANDRA GARCIA WNDNU LEFT FOR [place] DRUMMOND PREVIOUSLY ON CASE.
--- NOTE | 2021-05-21 10:00 | NUR ---
ICU/RN UNABLE PROVIDE SEDATION VACATION PT IS ON 100% FIO2 AND PEEP-14. SAT O2-93%.ON DIPRIVAN,FENTANYL AND VERSED MAXIMUM DOSE.CO2 STILL VERY HIGH.
--- NOTE | 2021-05-21 18:00 | NUR ---
ICU/RN PM CARE PROVIDED.WOUND DRESSING DONE ORDERED.PT SAT O2 DECREASED ,PT ON 100% FIO2. DUE MEDS ARE GIVEN ORDERED.HAS MORE THEN 100 ML GASTRIC RESIDUAL FEEDING PLACED ON HOLD .PT IS ON REGLAN IV.CONTINUE MONITORING.
[2021-05-21] MEDS: JEVITY 1.2 CAL 1,000 ML BOTTLE GT PRN (18:50)
--- NOTE | 2021-05-21 19:05 | NUR ---
RECEIVED PT ON BED SEDATED, ON ETT 7.5/20 VENT SETTING PER MD FIO2 100% SPO2 96% NO RESPIRATORY DISTRESS AT THIS TIME, TELE MONITOR READS SINUS MADELAINE 50-60, ON FENTANYL 200 MCG/HR, VERSED @ 10 MG/HR, PROPOFOL @ 100MCG/KG/MIN INFUSING VIA BOBBI PICC LINE INFUSING WELL, PT HAVE NGTUBE ON L NARES, PLACEMENT CHECKED, RESIDUAL CHECKED ITS 120ML, FEEDING WAS STOP AND WILL RECHECKED RESIDUAL AFTER AN HOUR, HAVE R CHEST, CHEST TUBE CONNECTED TO SUCTION WATER SEAL BUBBLING STILL NOTED MD IS AWARE, HAVE WONG CATHETER ON PLACE DRAINING DONG YELLOW URINE VIA GRAVITY, BED ON LOWEST POSITION AND LOCKED SIDE RAILS UP X2 WILL CONT TO MONITOR
[2021-05-21] MEDS: MELATONIN 5 MG PO SCH (21:51)
[2021-05-22] VITALS (100 sets, daily range): BP systolic 80–173; BP diastolic 25–97
[2021-05-22] MEDS: PROPOFOL 100 ML IV PRN ×15 (00:03→22:04)
[2021-05-22] MEDS: BLOOD SUGAR DIAGNOSTIC 1 EACH STRIP IN SCH ×5 (00:22→23:16)
[2021-05-22] MEDS: INSULIN REGULAR, HUMAN 100 UNIT/ML 3 ML VIAL SQ PRN ×5 (00:23→23:18)
--- NOTE | 2021-05-22 01:02 | NUR ---
PT ON BED STILL SEDATED ON ETT/VENT SETTING PER MD FIO2 90% SPO2 96% NO SIGN OF RESPIRATORY DISTRESS, STILL ON FENTANYL 200 MCG/HR VERSED 10MG/HR DIPRIVAN @ 100 MCG/KG/MIN FOR SEDATION AND LEVOPHED @ 0.02 MCG/KG/MIN FOR BP SUPPORT, BED ON LOWEST POSITION AND LOCKED SIDE RAILS UP X2 CALL LIGHT WITHIN REACH WILL CONT TO MONITOR
[2021-05-22] MEDS: JEVITY 1.2 CAL 1,000 ML BOTTLE GT PRN ×2 (01:35→17:20)
[2021-05-22] MEDS: FENTANYL CITRATE/PF 2,500 MCG in IV NS 0.9% 200 ML IV PRN ×3 (03:02→21:33)
[2021-05-22] MEDS: MIDAZOLAM HCL 100 MG in IV NS 0.9% 80 ML IV PRN ×3 (03:04→21:34)
[2021-05-22 04:39] LABS: BASOPHILS % (AUTO) 0.1 % (0.0-2.0); EOSINOPHILS % (AUTO) 0.3 % (0.0-6.0); HEMATOCRIT 26 % (33-45); HEMOGLOBIN 8.7 g/dL (11.5-14.8); LYMPHOCYTES # (AUTO) 0.6 K/uL (0.8-4.8); LYMPHOCYTES % (AUTO) 7.6 % (20.0-44.0); MEAN CORPUSCULAR HGB CONC 33 g/dl (31.0-36.0); MEAN CORPUSCULAR VOLUME 82 fL (82-100); MONOCYTES # (AUTO) 0.4 K/uL (0.1-1.30); MONOCYTES % (AUTO) 4.4 % (2.0-12.0); NEUTROPHILS # (AUTO) 7.4 K/uL (1.8-8.9); NEUTROPHILS % (AUTO) 87.6 % (43.0-81.0); PLATELET COUNT (AUTO) 226 K/uL (150-450); RED BLOOD CELL COUNT(AUTO) 3.19 MIL/uL (4.0-5.2); WHITE BLOOD COUNT (AUTO) 8.4 K/uL (4.3-11.0)
[2021-05-22 04:49] LABS: ALBUMIN 1.5 g/dL (3.4-5.0); BILIRUBIN,TOTAL 0.2 mg/dL (0.2-1.0); CALCIUM, SERUM 7.9 mg/dL (8.5-10.1); CREATININE 0.3 mg/dL (0.6-1.3); MAGNESIUM 2.3 mg/dL (1.8-2.4); PHOSPHORUS 3.4 mg/dL (2.5-4.9); TOTAL PROTEIN, SERUM 5.6 g/dL (6.4-8.2)
[2021-05-22] MEDS: FLUDROCORTISONE 0.1 MG TABLET NG SCH ×4 (05:17→23:06)
[2021-05-22] MEDS: METOCLOPRAMIDE HCL 10 MG/2 ML VIAL IV SCH ×4 (05:37→23:06)
--- NOTE | 2021-05-22 08:00 | NUR ---
RN NOTES RECEIVED PATIENT ETT/VENT WITH SEDATION FENTANYL 200MCG/KG/HR, VERSED 10ML/HR, AND DIPRIVAN 100MCG/KG/HR. PER ORTHOPEDICS TEACHER Dr ESCOBAR NO SEDATION VACATION TODAY. NGT INTACT RESIDUAL IS 60CC, RUNNING JEVITY 20ML/HR. KEEP HOB ELEVATED FOR ASPIRATION PRECAUTION. SEEN PATIENT VIA WOUND NURSE PICTURE TAKEN ON RIGHT FLANK FOLD WOUND, ASSIST TURN AND REFLATION Q 2 HR. DUE MEDICATION ADMINISTERED VIA NGT. PATIENT HAS GENERALIZED EDEMA.CVP READING IS 8. WONG DRAINING VIA GRAVITY. CHEST TUBE INTACT WATER CHAMBER STILL BOBBLING. PATIENT OFF ISOLATION. WILL FOLLOW UP.
--- NOTE | 2021-05-22 08:31 | NUR ---
WOUND CARE CONSULT/FOLLOW UP: PT SEEN FOR SKIN ASSESSMENT AND NOTED TO HAVE CLEAR SKIN ON SACRUM BUT OPEN SKIN TEAR AREA ON RT LOWER BACK/SKIN FOLD DUE TO MOISTURE AND SHEARING. RECOMMENDATIONS MADE FOR WOUND CARE AND SKIN PROTECTION. DISCUSSED WITH NURSING STAFF. WOUND CARE TREATMENT ORDERS UPDATED AFTER DISCUSSING WITH SURGICAL Layla DRUMMOND. DISCUSSED WITH NURSING STAFF. PT IS ON FIRST STEP LOW AIRLOSS MATTRESS. ALL SKIN PROTECTION MEASURES IN PLACE. PT NOTED TO HAVE EDEMA AND SOME PEELING SKIN WITH RESOLVING RASH TO PERINEUM/INNER THIGHS. MD IN AGREEMENT WITH PLAN OF CARE.
--- NOTE | 2021-05-22 08:38 | NUR ---
RN NOTES PER Dr ESCOBAR'S ORDER DECREASE FIO2-75%. RT NOTIFIED .
[2021-05-22] MEDS: PANTOPRAZOLE 40 MG/PACK PACK GT SCH (09:26)
[2021-05-22] MEDS: POLYETHYLENE GLYCOL 3350 17 GM POWD.PACK PO SCH ×2 (09:26→16:36)
[2021-05-22] MEDS: DEXAMETHASONE SOD PHOSPHATE 10 MG/ML VIAL IV SCH ×2 (09:26→16:36)
[2021-05-22] MEDS: HYDROCORTISONE SOD SUCCINATE 100 MG/2 ML VIAL IV SCH (09:26)
[2021-05-22] MEDS: CHOLECALCIFEROL 1,000 UNIT TABLET (VIT D3) GT SCH (09:27)
[2021-05-22] MEDS: ZINC SULFATE 220 MG CAPSULE GT SCH (09:27)
[2021-05-22] MEDS: ASPIRIN EC 81 MG TABLET.DR PO SCH (09:27)
[2021-05-22] MEDS: LEVOTHYROXINE SODIUM 50 MCG TABLET GT SCH (09:27)
[2021-05-22] MEDS: MELOXICAM 7.5 MG TABLET GT SCH (09:28)
[2021-05-22] MEDS: ENOXAPARIN SODIUM 40 MG/0.4 ML DISP.SYRIN SQ SCH ×2 (09:35→20:29)
[2021-05-22] MEDS: Z GUARD REMEDY 2 OZ OINT TP SCH (09:36)
[2021-05-22] MEDS: CLOTRIMAZOLE 1% 15 GM TUBE TP SCH ×2 (09:36→16:32)
[2021-05-22] MEDS: PROSOURCE / PROSTAT (PYXIS) 30 ML UDC GT SCH ×3 (09:37→16:32)
--- NOTE | 2021-05-22 11:47 | NUR ---
RN NOTES BS-157 MG/DL, COVERAGE GIVEN, DUE MEDICATION ADMINISTERED, MOUTH CARE DONE, ASSIST TURN AND REPOSTION Q 2 HR.
--- NOTE | 2021-05-22 12:56 | NUR ---
rn notes patient saturation going down 84 to 88, suction, mouth care done, reposition. per RT brings up FIO2--80%. will monitoring.
--- NOTE | 2021-05-22 16:00 | NUR ---
rn notes PATIENT BP-90/47, P-58. PATIENT DAUGHTERS NEXT TO THE BED AT THIS TIMES , PER DAUGHTERS PUT RELAXING, CULTURAL MUSIC.
--- NOTE | 2021-05-22 18:28 | NUR ---
RN NOTES BS-177 MG/DL, COVERAGE GIVEN, DUE MEDICATION ADMINISTERED VIA NGT, VSS, PM CARE DONE, NO CHANGES PATIENT CONDITION DURING THE SHIFT. RESIDUAL IS 30ML, RUNNING JEVITY 1.2 @20ML/HR, KEEP HOB ELEVATED, PATIENT SEDATED WITH DIPRIVAN 100MCG/KG/HR, VERSED 10ML/HR, AND FENTANYL 200MCG/KG/HR ON LEFT UPPER ARM PICC LINE, INTACT . CHEST TUBE HAS 2 ML OF OUTPUT, AND WONG ENTIRE SHIFT DRAINED 1000 ML. WILL MONITORING. ENDORSED ONCOMING NURSE MYRNA.
--- NOTE | 2021-05-22 19:05 | NUR ---
RECEIVED PT ON BED SEDATED, ON ETT 7.5/20 VENT SETTING PER MD FIO2 80% SPO2 96% NO RESPIRATORY DISTRESS AT THIS TIME, TELE MONITOR READS SINUS MADELAINE 40-50'S, ON FENTANYL 200 MCG/HR, VERSED @ 10 MG/HR, PROPOFOL @ 100MCG/KG/MIN AND LEVOPHED @ 0.02 MCG/KG/MIN INFUSING VIA BOBBI PICC LINE INFUSING WELL, PT HAVE NGTUBE ON L NARES, PLACEMENT CHECKED, RESIDUAL CHECKED ITS 170ML, FEEDING WAS STOP AND WILL RECHECKED RESIDUAL AFTER AN HOUR, HAVE R CHEST, CHEST TUBE CONNECTED TO SUCTION WATER SEAL BUBBLING STILL NOTED MD IS AWARE, HAVE WONG CATHETER ON PLACE DRAINING DONG YELLOW URINE VIA GRAVITY, BED ON LOWEST POSITION AND LOCKED SIDE RAILS UP X2 WILL CONT TO MONITOR
[2021-05-22] MEDS: MELATONIN 5 MG PO SCH (21:54)
[2021-05-22] MEDS: NOREPINEPHRINE 8 MG in IV NS 0.9% 242 ML IV PRN (23:06)
[2021-05-23] VITALS (70 sets, daily range): BP systolic 64–130; BP diastolic 38–87
[2021-05-23] MEDS: PROPOFOL 100 ML IV PRN ×16 (01:33→23:47)
[2021-05-23 04:30] LABS: BASOPHILS % (AUTO) 0.2 % (0.0-2.0); EOSINOPHILS % (AUTO) 0.3 % (0.0-6.0); HEMATOCRIT 27 % (33-45); LYMPHOCYTES # (AUTO) 0.6 K/uL (0.8-4.8); LYMPHOCYTES % (AUTO) 6.5 % (20.0-44.0); MEAN CORPUSCULAR HGB CONC 33 g/dl (31.0-36.0); MEAN CORPUSCULAR VOLUME 82 fL (82-100); MONOCYTES # (AUTO) 0.3 K/uL (0.1-1.30); MONOCYTES % (AUTO) 3.7 % (2.0-12.0); NEUTROPHILS # (AUTO) 8.5 K/uL (1.8-8.9); NEUTROPHILS % (AUTO) 89.3 % (43.0-81.0); PLATELET COUNT (AUTO) 226 K/uL (150-450); RED BLOOD CELL COUNT(AUTO) 3.34 MIL/uL (4.0-5.2); WHITE BLOOD COUNT (AUTO) 9.5 K/uL (4.3-11.0)
[2021-05-23 04:53] LABS: ALBUMIN 1.6 g/dL (3.4-5.0); BILIRUBIN,TOTAL 0.3 mg/dL (0.2-1.0); CREATININE 0.2 mg/dL (0.6-1.3); MAGNESIUM 2.2 mg/dL (1.8-2.4); PHOSPHORUS 3.9 mg/dL (2.5-4.9); POTASSIUM 3.5 mmol/L (3.5-5.1); TOTAL PROTEIN, SERUM 5.7 g/dL (6.4-8.2)
[2021-05-23 04:59] LABS: CALCIUM, SERUM 7.9 mg/dL (8.5-10.1)
--- NOTE | 2021-05-23 05:43 | NUR ---
END OF SHIFT PT INTUBATED 7.5 ETT AT 20CM LIP LINE. NO CHANGES ON VENT SETTINGS. SX'D SMALL AMT OF THICK GREEN SECRETIONS. VENT ALARMS SET AND AUDIBLE. AMBU BAG AT BEDSIDE. VENT PLUGGED INTO RED OUTLET. Addendum: 05/23/21 at 0545 by WICHO JACKSON RT Amended: Links added.
[2021-05-23] MEDS: FLUDROCORTISONE 0.1 MG TABLET NG SCH ×3 (06:18→17:54)
[2021-05-23] MEDS: BLOOD SUGAR DIAGNOSTIC 1 EACH STRIP IN SCH ×3 (06:18→17:54)
[2021-05-23] MEDS: METOCLOPRAMIDE HCL 10 MG/2 ML VIAL IV SCH ×3 (06:19→17:54)
[2021-05-23] MEDS: INSULIN REGULAR, HUMAN 100 UNIT/ML 3 ML VIAL SQ PRN ×3 (06:35→18:48)
[2021-05-23 08:51] LABS: ABG BASE EXCESS 4.1 mmol/L; ABG OXYGEN SATURATION 85.3 % (92.0-98.5); ABG PCO2 56.1 mmHg (35.0-45.0); ABG PH 7.355 (7.350-7.450); ABG PO2 49.7 mmHg (75.0-100.0); AaDO2 461.8 mmHg; COHb 1.1 % (0.5-1.5); MetHb 0.2 % (0.0-1.5); O2Hb 84.2 % (94.0-97.0); PEEP,BG 14 cm H2O; SITE, ABG Right Brachial; VT, ABG 400 mL
--- NOTE | 2021-05-23 09:00 | NUR ---
Patient's saturation noted to be in 80's and RT aware. MD Peleg ordered ABG prior to any vent setting changes. Patient's peep and fi02 increased to 14 and 100% per md peleg.
[2021-05-23] MEDS: MIDAZOLAM HCL 100 MG in IV NS 0.9% 80 ML IV PRN ×3 (09:11→22:11)
[2021-05-23] MEDS: ASPIRIN EC 81 MG TABLET.DR PO SCH (09:22)
[2021-05-23] MEDS: CHOLECALCIFEROL 1,000 UNIT TABLET (VIT D3) GT SCH (09:22)
[2021-05-23] MEDS: PROSOURCE / PROSTAT (PYXIS) 30 ML UDC GT SCH ×3 (09:22→17:55)
[2021-05-23] MEDS: ZINC SULFATE 220 MG CAPSULE GT SCH (09:22)
[2021-05-23] MEDS: POLYETHYLENE GLYCOL 3350 17 GM POWD.PACK PO SCH ×2 (09:22→17:00)
[2021-05-23] MEDS: DEXAMETHASONE SOD PHOSPHATE 10 MG/ML VIAL IV SCH ×2 (09:22→17:55)
[2021-05-23] MEDS: HYDROCORTISONE SOD SUCCINATE 100 MG/2 ML VIAL IV SCH (09:22)
[2021-05-23] MEDS: MELOXICAM 7.5 MG TABLET GT SCH (09:22)
[2021-05-23] MEDS: PANTOPRAZOLE 40 MG/PACK PACK GT SCH (09:22)
[2021-05-23] MEDS: Z GUARD REMEDY 2 OZ OINT TP SCH (09:23)
[2021-05-23] MEDS: CLOTRIMAZOLE 1% 15 GM TUBE TP SCH ×2 (09:23→17:54)
[2021-05-23] MEDS: ENOXAPARIN SODIUM 40 MG/0.4 ML DISP.SYRIN SQ SCH ×2 (09:24→20:16)
[2021-05-23] MEDS: FENTANYL CITRATE/PF 2,500 MCG in IV NS 0.9% 200 ML IV PRN ×2 (09:37→22:18)
[2021-05-23] MEDS: LEVOTHYROXINE SODIUM 50 MCG TABLET GT SCH (09:54)
[2021-05-23 11:35] LABS: ABG BASE EXCESS 3.2 mmol/L; ABG OXYGEN SATURATION 87.5 % (92.0-98.5); ABG PCO2 75.3 mmHg (35.0-45.0); ABG PH 7.246 (7.350-7.450); ABG PO2 59.3 mmHg (75.0-100.0); AaDO2 578.4 mmHg; COHb 0.8 % (0.5-1.5); MetHb 0.5 % (0.0-1.5); O2Hb 86.4 % (94.0-97.0); PEEP,BG 16 cm H2O; SITE, ABG Right Radial; VT, ABG 400 mL
--- NOTE | 2021-05-23 11:57 | NUR ---
tube feeding changed from 25 cc/hour to 10 ml/hour due to patient being on propofol 100 mcg/kg per administrative assistant office manager's orders.
--- NOTE | 2021-05-23 19:31 | NUR ---
PROGRAM MANAGER ENVIRONMENTAL PLANNING CLOSING NOTES Patient is on mechanical vent settings of 400 TV , FI 02 OF 100 %, PEEP OF 16. Patient 's Levo increased to 0.2 mcg/kg/min and bp rechecked and noted with 97/52 during endorsement with pulse of 78. Patient sedated and on propofol drip at 100 mcg/kg/min, versed drip of 10 mg/hour, fentanyl drip drip of 200 mcg/hour. Patient's picc line and mid line to left upper arm flushes well and patent. Family is updated regarding patient's condition. BS managed and coverage provided as needed. Left nare ng tube noted with no residual noted and feeding running at 10 cc/hour. Endorsed to next shift for martha.
--- NOTE | 2021-05-23 20:00 | NUR ---
agricultural real estate agent notes RECEIVED PATIENT IN BED, SEDATED,SR 78 ON THE MONITOR . NO SOB NO DISTRESS NOTED AT THIS TIME. ON ET TUBE 7.5, 20 ON THE LIP LINE CONNECTED TO MECHANICAL VENT WITH SETTINGS PRESCRIBED AC 24, TV 400, FIO2 100%, PEEP 16, SATURATION AT 91%, NOTED BOBBI PICC LINE, AND BOBBI MIDLINE 18G, ALL LINES PATENT AND INTACT FLUSHING WELL, NO S/S OF INFECTION, WITH DIPRIVAN INFUSING AT 100MCG/KG/MIN, FENTANYL AT 200 MCG/HG, AND VERSED AT 10MG/HR.LEVOPHED AT 0.2 MCG/KG/MIN, NOTED NG TUBE AT L NARE INTACT, VERIFIED BY AUSCULTATION AND ASPIRATION, POSITIVE PLACEMENT NOTED, NO RESIDUAL NOTED , WITH TUBE FEEDING OF JEVITY AT 10 ML/HR. WONG CATHETER CONNECTED TO URINE BAG, DRAINING TO A CLEAR YELLOW OUTPUT. SAFETY MEASURES IMPLEMENTED. PATIENT BED ALARM IS ON. HEAD OF BED ELEVATED. BED IS LOCKED, IN LOWEST POSITION AND SIDE RAILS UP. CALL LIGHT WITHIN REACH OF THE PATIENT. WILL CONTINUE TO MONITOR AND REASSESS FOR ANY CHANGES.
[2021-05-23] MEDS: NOREPINEPHRINE 8 MG in IV NS 0.9% 242 ML IV PRN ×2 (20:02→23:33)
--- NOTE | 2021-05-23 20:04 | NUR ---
Received patient intubated on vent 7.5 ett secured at 20cm lip line. Patient in critical condition. Vent settings per MD. Vent alarms set and audible. Vent plugged into red outlet. Ambu bag at bedside. Continue to monitor closely. Addendum: 05/23/21 at 2007 by WICHO JACKSON RT Amended: Links added.
--- NOTE | 2021-05-23 21:45 | NUR ---
WELT TRIMMING MACHINE OPERATOR NOTES PTS NOTED ON THE MONITOR WITH TRIGEMENY AND MULTIPLE PVC , SPOKE TO DR RICO WITH BMP AND MAG ORDER NOTED AND CARRIED OUT.WILL CONTINUE TO MONITOR PTS.
[2021-05-23] MEDS: MELATONIN 5 MG PO SCH (22:00)
--- NOTE | 2021-05-23 22:00 | NUR ---
RN NOTE MELATONIN NON ADMINISTERED PT IS SEDATED.
[2021-05-23 23:19] LABS: CALCIUM, SERUM 7.1 mg/dL (8.5-10.1); CREATININE 0.5 mg/dL (0.6-1.3); MAGNESIUM 1.8 mg/dL (1.8-2.4); POTASSIUM 3.3 mmol/L (3.5-5.1)
[2021-05-23] MEDS ORDERED: NOREPINEPHRINE 8MG/250ML RTU 250 ML IV ONE (23:19)
[2021-05-24] VITALS (19 sets, daily range): BP systolic 66–166; BP diastolic 14–107
--- NOTE | 2021-05-24 | NUR ---
LEATHER CASE FINISHER NOTES RECEIVED POTASSIUM LEVEL OF 3.[address] RICO .
--- NOTE | 2021-05-24 00:05 | NUR ---
TELETYPEWRITER INSTALLER NOTES BLOOD SUGAR OF 179 MG/DL AT 0000HRS 3 UNITS OG REGULAR INSULIN GIVEN PER SLIDING SCALE ,WILL CHECK BS AGAIN AT 6AM DUE MEDS GIVEN ORDERED.
[2021-05-24] MEDS: METOCLOPRAMIDE HCL 10 MG/2 ML VIAL IV SCH ×2 (00:18→06:00)
[2021-05-24] MEDS: BLOOD SUGAR DIAGNOSTIC 1 EACH STRIP IN SCH ×2 (00:19→06:03)
[2021-05-24] MEDS: FLUDROCORTISONE 0.1 MG TABLET NG SCH ×2 (00:19→06:00)
[2021-05-24] MEDS: INSULIN REGULAR, HUMAN 100 UNIT/ML 3 ML VIAL SQ PRN ×2 (00:24→06:02)
--- NOTE | 2021-05-24 00:30 | NUR ---
PORTFOLIO ADMINISTRATOR NOTES [address] RICO RELAYED POTASSIUM LEVELOF 3.3 RESULT . WITH ORDER TO GIVE POTASSIUM 30 MEQ IVPB, ORDER NOTED AND CARRIED OUT.WILL CONTINUE TO MONITOR PTS.
[2021-05-24] MEDS: POTASSIUM CHLORIDE 10 MEQ/50 ML PREMIXED IVPB FOR PERIPHERAL LINE IV SCH ×3 (00:31→02:16)
[2021-05-24] MEDS: PROPOFOL 100 ML IV PRN ×5 (01:23→09:42)
[2021-05-24] MEDS ORDERED: NOREPINEPHRINE 8MG/250ML RTU 250 ML IV ONE (01:56)
[2021-05-24] MEDS: NOREPINEPHRINE 8 MG in IV NS 0.9% 242 ML IV PRN ×2 (02:54→05:35)
[2021-05-24] MEDS ORDERED: NOREPINEPHRINE 4 MG/4 ML AMPUL IV ONE (05:09)
[2021-05-24 05:23] LABS: BASOPHILS # (AUTO) 0.1 K/uL (0.0-0.2); BASOPHILS % (AUTO) 0.3 % (0.0-2.0); EOSINOPHILS % (AUTO) 0.1 % (0.0-6.0); HEMATOCRIT 31 % (33-45); HEMOGLOBIN 10.2 g/dL (11.5-14.8); MEAN CORPUSCULAR HGB CONC 33 g/dl (31.0-36.0); MEAN CORPUSCULAR VOLUME 83 fL (82-100); MONOCYTES # (AUTO) 0.2 K/uL (0.1-1.30); NEUTROPHILS # (AUTO) 23.9 K/uL (1.8-8.9); NEUTROPHILS % (AUTO) 94.6 % (43.0-81.0); PLATELET COUNT (AUTO) 197 K/uL (150-450); WHITE BLOOD COUNT (AUTO) 25.3 K/uL (4.3-11.0)
[2021-05-24 05:37] LABS: BILIRUBIN,TOTAL 0.8 mg/dL (0.2-1.0); CALCIUM, SERUM 6.3 mg/dL (8.5-10.1); CREATININE 0.6 mg/dL (0.6-1.3); MAGNESIUM 1.7 mg/dL (1.8-2.4); PHOSPHORUS 4.2 mg/dL (2.5-4.9); POTASSIUM 3.4 mmol/L (3.5-5.1); TOTAL PROTEIN, SERUM 5.1 g/dL (6.4-8.2)
[2021-05-24 05:42] LABS: ALBUMIN 1.2 g/dL (3.4-5.0)
--- NOTE | 2021-05-24 06:00 | NUR ---
AERIAL APPLICATOR PILOT NOTES pTS NOTED BLOOD PRESSURE 73/51 PTS ALREADY ON LEVOPHED 0.8 MCG WITH ORDER YENNIFER PER PROTOCOL.WILL CONTINUE TO MONITOR PTS.
--- NOTE | 2021-05-24 06:04 | NUR ---
LEATHER SPONGER NOTES Blood sugar at 6am is 148 mg/dl 2 units of regular insulin given per sliding scsle
[2021-05-24] MEDS ORDERED: PHENYLEPHRINE 50 MG in IV NS 0.9% 245 ML IV PRN (07:00)
--- NOTE | 2021-05-24 07:03 | NUR ---
INTEGRATED LOGISTICS SUPPORT MANAGER NOTES pTS STARTED ON LEVOPHED 32MG AT 0.1 MCG , YENNIFER AT 0.5 MCG ORDERED. WILL INDOPRSE TO RN DAY SHIFT FOR CONTINUITY OF CARE.
[2021-05-24] MEDS ORDERED: NOREPINEPHRINE 32 MG in IV NS 0.9% 218 ML IV PRN (08:00)
[2021-05-24] MEDS: POLYETHYLENE GLYCOL 3350 17 GM POWD.PACK PO SCH (08:04)
[2021-05-24] MEDS: CHOLECALCIFEROL 1,000 UNIT TABLET (VIT D3) GT SCH (08:15)
[2021-05-24] MEDS: ZINC SULFATE 220 MG CAPSULE GT SCH (08:15)
[2021-05-24] MEDS: LEVOTHYROXINE SODIUM 50 MCG TABLET GT SCH (08:15)
[2021-05-24] MEDS: ASPIRIN EC 81 MG TABLET.DR PO SCH (08:15)
[2021-05-24] MEDS: PANTOPRAZOLE 40 MG/PACK PACK GT SCH (08:15)
[2021-05-24] MEDS: MELOXICAM 7.5 MG TABLET GT SCH (08:15)
[2021-05-24] MEDS: PROSOURCE / PROSTAT (PYXIS) 30 ML UDC GT SCH (08:16)
[2021-05-24] MEDS: DEXAMETHASONE SOD PHOSPHATE 10 MG/ML VIAL IV SCH (08:16)
[2021-05-24] MEDS: HYDROCORTISONE SOD SUCCINATE 100 MG/2 ML VIAL IV SCH (08:16)
[2021-05-24] MEDS: CLOTRIMAZOLE 1% 15 GM TUBE TP SCH (08:17)
[2021-05-24] MEDS: Z GUARD REMEDY 2 OZ OINT TP SCH (08:17)
[2021-05-24] MEDS: POTASSIUM CL. PREMIX PERIPHER. 50 ML IV SCH ×2 (08:17→09:40)
[2021-05-24] MEDS: Magnesium 1GM/D5W 100ML PREMIX 100 ML IV SCH ×2 (08:17→09:40)
[2021-05-24] MEDS: ENOXAPARIN SODIUM 40 MG/0.4 ML DISP.SYRIN SQ SCH (08:19)
[2021-05-24 08:23] LABS: ABG BASE EXCESS -10.9 mmol/L; ABG OXYGEN SATURATION 82.5 % (92.0-98.5); ABG PCO2 82.6 mmHg (35.0-45.0); ABG PO2 54.6 mmHg (75.0-100.0); AaDO2 575.8 mmHg; COHb 0.8 % (0.5-1.5); MetHb 0.5 % (0.0-1.5); O2Hb 81.4 % (94.0-97.0); SITE, ABG Right Radial
[2021-05-24] MEDS: MIDAZOLAM HCL 100 MG in IV NS 0.9% 80 ML IV PRN (08:35)
--- NOTE | 2021-05-24 08:45 | NUR ---
RN NOTE 0800: Patient unstable, with episode of SVT up to 200bpmfor 2 min then AFib 40's to 130's, made MD aware. Started replacing Mg and K. Called [place], daughter and made aware for the episode of irregular heart rhythm and possible to be coded. Started titrating Ignacio up and lowered Levo due to SVT episode. 0830: Dr. Bryan in the unit reviewed ABG, with order of Bicarb IVP x1 and Bicarb drip.
--- NOTE | 2021-05-24 09:00 | NUR ---
RT NOTE CODE BLUE CALLED. RT ASSISTED IN CPR.
--- NOTE | 2021-05-24 09:18 | NUR ---
RN NOTE SP COde blue, 1 bicarb given and 1 Epi given during the Code, 1 more Bicarb given after ROSC. Addendum: 05/24/21 at 0920 by AUDRA GARSIA RN per Dr. Hathaway
[2021-05-24] MEDS ORDERED: SODIUM BICARBONATE SYR 50 MEQ/50 ML DISP.SYRIN IV ONE ×2 (09:30→10:26)
--- NOTE | 2021-05-24 09:30 | NUR ---
RN NOTE EKG resulted, made Dr. Reyes aware. Also made Dr. Rivas FLORES MD aware.
[2021-05-24] MEDS: FENTANYL CITRATE/PF 2,500 MCG in IV NS 0.9% 200 ML IV PRN (09:41)
[2021-05-24] MEDS ORDERED: Sodium Bicarbonate 100 MEQ in IV D5W 1,000 ML IV SCH (10:00)
--- NOTE | 2021-05-24 10:00 | NUR ---
RN NOTE Family in the unit, made MDs aware re: their concern of having them meet. Explained to family, patient is seen by ER MD right now. ANd Dr. Reyes aware for the K, Mg, And EKG result. And also Dr. Bryan aware for ABG and changed settings of Vt 450. Daughter with episode of shouting, tried to calm her down, Nurse sup, unit mgr in the unit, aware and Security as well. Kept family updated of what's happening.
--- NOTE | 2021-05-24 10:09 | NUR ---
RT NOTE CODE BLUE CALLED. RT ASSISTED IN CPR.
[2021-05-24] MEDS ORDERED: EPINEPHRINE (1:10,000) SYRINGE 1 MG/10 ML DISP.SYRIN IVP ONE (10:26)
--- NOTE | 2021-05-24 10:53 | NUR ---
RN NOTE SP 2 Code Blues, on second code blue with ROSC. During the code, family decided to make patient DNR, under Dr. Hathaway and charge nurse inside the room. Noted with Asystole, Dr. Reyes came and announced time of 1017. 1040: Called [facility] [id number] c/o Drew Ameya, may release body. 1045: Belongings given to family. No mortuary yet, they will call and will send body to [facility] [place].
--- NOTE | 2021-05-24 11:32 | NUR ---
Cleaned the body and will bring to morgue.
== END 2021-05-24 10:17 | DRG 207 ==
LOC: ER 22:08 → TELE-TD 04-21 02:03 → TELE1 04-21 17:22 → ICU 04-22 12:20
PROVIDERS: ADMIT Internal Medicine
PROC: XW033E5 Introduction of Remdesivir Anti-infective into Peripheral Vein, Percutaneous Approach, New Technology Group 5 (ICD-10-PCS; principal; 2021-04-21)
PROC: XW033H5 Introduction of Tocilizumab into Peripheral Vein, Percutaneous Approach, New Technology Group 5 (ICD-10-PCS; 2021-04-21)
PROC: 05H533Z Insertion of Infusion Device into Right Subclavian Vein, Percutaneous Approach (ICD-10-PCS; 2021-04-21)
PROC: B546ZZA Ultrasonography of Right Subclavian Vein, Guidance (ICD-10-PCS; 2021-04-21)
PROC: 05H633Z Insertion of Infusion Device into Left Subclavian Vein, Percutaneous Approach (ICD-10-PCS; 2021-04-29)
PROC: B547ZZA Ultrasonography of Left Subclavian Vein, Guidance (ICD-10-PCS; 2021-04-29)
PROC: 5A1955Z Respiratory Ventilation, Greater than 96 Consecutive Hours (ICD-10-PCS; 2021-05-01)
PROC: 0BH18EZ Insertion of Endotracheal Airway into Trachea, Via Natural or Artificial Opening Endoscopic (ICD-10-PCS; 2021-05-01)
PROC: 02HV33Z Insertion of Infusion Device into Superior Vena Cava, Percutaneous Approach (ICD-10-PCS; 2021-05-01)
PROC: B548ZZA Ultrasonography of Superior Vena Cava, Guidance (ICD-10-PCS; 2021-05-01)
PROC: 0W9930Z Drainage of Right Pleural Cavity with Drainage Device, Percutaneous Approach (ICD-10-PCS; 2021-05-03)
PROC: 0W29X0Z Change Drainage Device in Right Pleural Cavity, External Approach (ICD-10-PCS; 2021-05-06)
PROC: 5A12012 Performance of Cardiac Output, Single, Manual (ICD-10-PCS; 2021-05-24)
DX: U07.1 COVID-19 (principal); A41.89 Other specified sepsis; J96.01 Acute respiratory failure with hypoxia; J12.82 Pneumonia due to coronavirus disease 2019; N17.0 Acute kidney failure with tubular necrosis; E43 Unspecified severe protein-calorie malnutrition; R65.21 Severe sepsis with septic shock; Z68.41 Body mass index [BMI] 40.0-44.9, adult; E27.40 Unspecified adrenocortical insufficiency; E87.2 Acidosis; J93.82 Other air leak; J81.1 Chronic pulmonary edema; T79.7XXA Traumatic subcutaneous emphysema, initial encounter; J93.9 Pneumothorax, unspecified; I10 Essential (primary) hypertension; E03.9 Hypothyroidism, unspecified; E66.01 Morbid (severe) obesity due to excess calories; D69.6 Thrombocytopenia, unspecified; Z91.14 Patient's other noncompliance with medication regimen; R00.1 Bradycardia, unspecified; E88.09 Other disorders of plasma-protein metabolism, not elsewhere classified; I95.9 Hypotension, unspecified; R73.9 Hyperglycemia, unspecified; B36.9 Superficial mycosis, unspecified; D72.810 Lymphocytopenia; E78.1 Pure hyperglyceridemia; E78.5 Hyperlipidemia, unspecified; E87.6 Hypokalemia; Y93.89 Activity, other specified; Z66 Do not resuscitate; S30.0XXA Contusion of lower back and pelvis, initial encounter; X58.XXXA Exposure to other specified factors, initial encounter; I48.91 Unspecified atrial fibrillation
CPT/HCPCS: 31720; 36410; 36415; 36569; 36600; 71045-TC; 74018; 80048-TC; 80053-TC; 80061-TC; 80076-TC; 82533; 82550-TC; 82728-TC; 82803-TC; 82962-TC; 83540-TC; 83605-TC; 83615-TC; 83735-TC; 83880; 84100-TC; 84443-TC; 84478-TC; 84484-TC; 85025-TC; 85378-TC; 85385-TC; 85610-TC; 85730-TC; 86140-TC; 86480; 87040-TC; 87070-TC; 87081-TC; 87086-TC; 87186-TC; 87899; 92950-TC; 93307-TC; 94002-TC; 94003-TC; 94640-TC; 94660; 94760-TC; 94762-TC; 94799-TC; 99082-TC; A4216; A4217; A6403; C9803; G0378; J0171; J0456; J0461; J0692; J0696; J1100; J1200; J1650; J1720; J1815; J1940; J2001; J2060; J2250; J2370; J2543; J2704; J2765; J2930; J3010; J3262; J3370; J3475; J3480; J3490; J7030; J7040; J7050; J7060; J7070; U0003